=== PATIENT | male | born 1945 | race Hispanic/Latino ===

== ENCOUNTER 2017-10-09 19:44 | Inpatient (IN) | payer MEDICARE ==
--- NOTE | 2017-10-09 20:30 | C.PDOC ---
History Of Present Illness 72yo male, history of parkinson's disease, presents to ED for evaluation after he fell while walking and injured his right hip. Patient denies any loss of consciousness and states he remembers the event. He denies any other trauma or injury, offers no other medical complaints. Time Seen by Provider: 10/09/17 20:30 Chief Complaint (Nursing): Hip Pain History Per: Patient History/Exam Limitations: no limitations Onset/Duration Of Symptoms: Hrs Current Symptoms Are (Timing): Still Present Severity: Moderate Pain Scale Rating Of: 4 Recent travel outside of the [place]: No Additional History Per: Patient - Hip Description Of Injury: Fell (pushed by the wind) Currently Unable To: Bear Weight, Straighten, Bend Or Move Past Medical History Reviewed: Historical Data, Nursing Documentation, Vital Signs Vital Signs: Last Vital Signs Temp 97.4 F L 10/09/17 19:55 Pulse 97 H 10/09/17 19:55 Resp 20 10/09/17 19:55 BP 131/75 10/09/17 19:55 Pulse Ox 98 10/09/17 21:18 - Medical History PMH: No Chronic Diseases Surgical History: No Surg Hx Family History: States: No Known Family Hx - Social History Hx Alcohol Use: No Hx Substance Use: No Review Of Systems Constitutional: Negative for: Fever, Chills Cardiovascular: Negative for: Chest Pain Respiratory: Negative for: Shortness of Breath Musculoskeletal: Positive for: Other (right sided hip pain) Skin: Negative for: Rash Neurological: Negative for: Weakness, Other (loss of consciousness) Psych: Negative for: Anxiety Physical Exam - Physical Exam Appears: Non-toxic Skin: Warm, Dry Head: Atraumatic, Normacephalic Eye(s): bilateral: Normal Inspection Oral Mucosa: Moist Neck: Supple Chest: Symmetrical Cardiovascular: Rhythm Regular Respiratory: No Rales, No Rhonchi, No Wheezing Gastrointestinal/Abdominal: Bowel Sounds, Soft, No Tenderness Back: No CVA Tenderness Extremity: Tenderness (tenderness to right hip, no crepidus noted), Deformity ( right leg externally rotated), Other (bilateral cog-wheel rigidity) Extremity: Right: Limited ROM To Joint, Unable To Bear Weight Pulses: Left Dorsalis Pedis: Normal, Right Dorsalis Pedis: Normal Neurological/Psych: Oriented x3, Other (tremors noted (history of parkinsons)) Gait: Unable To Assess ED Course And Treatment - Laboratory Results Result Diagrams: 10/09/17 20:46 10/09/17 20:46 ECG: Interpreted By Me, Viewed By Me ECG Rhythm: Nonspecific Changes O2 Sat by Pulse Oximetry: 98 (RA) Pulse Ox Interpretation: Normal - Radiology CXR: Interpreted by Me, Viewed By Me CXR Interpretation: No: Infiltrates, Fracture, Pnemothorax - Other Rad hip X-Ray: Interpreted by Me, Viewed By Me Interpretation: r hip fx, impacted surgical neck Disposition Discussed With DrMilton: Keon Rodriguez Comment: accepted the pt on his service and took over the care at 10 PM Counseled Patient/Family Regarding: Studies Performed, Diagnosis - Disposition Disposition: HOSPITALIZED Disposition Time: 20:30 Condition: FAIR Forms: [facility] (Belarusian) - POA Present On Arrival: Falls Or Trauma, Poor Glycemic Control - Clinical Impression Clinical Impression: Hip pain, Fracture of right hip - Scribe Statement The provider has reviewed the documentation as recorded by the Scribe (Mary Tran) Provider Attestation: All medical record entries made by the Scribe were at my direction and personally dictated by me. I have reviewed the chart and agree that the record accurately reflects my personal performance of the history, physical exam, medical decision making, and the department course for this patient. I have also personally directed, reviewed, and agree with the discharge instructions and disposition. Decision To Admit - Pt Status Changed To: Hospital Disposition Of: Inpatient - Admit Certification Admit to Inpatient:: After my assessment, the patient will require hospitalization for at least two midnights. This is because of the severity of symptoms shown, intensity of services needed, and/or the medical risk in this patient being treated as an outpatient. - InPatient: Physician Admission Certification: I certify that this patient requires 2 or more midnights of care for the following reason:: After my assessment, the patient will require hospitalization for at least two midnights. This is because of the severity of symptoms shown, intensity of services needed, and/or the medical risk in this patient being treated as an outpatient. - . Bed Request Type: Regular Admitting Physician: Keon Rodriguez Patient Diagnosis: Hip pain, Fracture of right hip
[2017-10-09 20:53] LABS: BASO % 0.3 % (0.0-2.0); EOS # 0.1 K/uL (0.0-0.7); EOS % 2.1 % (0.0-4.0); HEMOGLOBIN 11.8 g/dL (12.0-18.0); LYMPH # 0.9 K/uL (1.0-4.3); LYMPH % 22.4 % (20.0-40.0); MEAN CELL VOLUME 98.5 fL (80.0-94.0); MEAN CORPUSCULAR HEMOGLOBIN 33.9 pg (27.0-31.0); MEAN CORPUSCULAR HGB CONC 34.4 g/dL (33.0-37.0); MEAN PLATELET VOLUME 7.7 fL (7.2-11.7); MONO # 0.2 K/uL (0.0-0.8); MONO % 5.9 % (0.0-10.0); NEUT # 2.7 K/uL (1.8-7.0); NEUT % 69.3 % (50.0-75.0); RBC 3.49 Mil/uL (4.40-5.90); RED CELL DISTRIBUTION WIDTH 12.6 % (11.5-14.5); WHITE BLOOD COUNT 3.8 K/uL (4.8-10.8)
[2017-10-09 21:03] LABS: INR 1.1
[2017-10-09 21:09] LABS: ALB/GLOB RATIO 1.2 (1.0-2.1); ALBUMIN 3.9 g/dL (3.5-5.0); ALT/SGPT 37 U/L (21-72); AST/SGOT 27 U/L (17-59); BLOOD UREA NITROGEN 20 mg/dL (9-20); CALCIUM 8.4 mg/dl (8.6-10.4); GFR AFRICAN-AMERICAN > 60; GFR NON-AFRICAN AMERICAN > 60
[2017-10-10] MEDS ORDERED: Morphine 4 MG/ML VIAL IV ONE (01:40)
[2017-10-10] MEDS ORDERED: Morphine 4 MG/ML VIAL SC PRN (04:20)
[2017-10-10] MEDS ORDERED: Morphine 4 MG/ML VIAL IVP STA (06:25)
--- NOTE | 2017-10-10 09:48 | RAD ---
PROCEDURE: CHEST RADIOGRAPH, 1 VIEW HISTORY: Shortness of breath COMPARISON: None available. FINDINGS: LUNGS: The lungs are hyperinflated and there is peribronchial thickening with chronic changes in both lungs. No focal consolidation PLEURA: No pneumothorax or pleural fluid seen. CARDIOVASCULAR: Normal. OSSEOUS STRUCTURES: No significant abnormalities. VISUALIZED UPPER ABDOMEN: Normal. OTHER FINDINGS: None. IMPRESSION: No active pulmonary disease. COPD.
[2017-10-10] MEDS: Enoxaparin 30 mg Syringe SC SCH ×2 (10:19→21:25)
--- NOTE | 2017-10-10 10:39 | RAD ---
PROCEDURE: Right Hip with Pelvis Radiographs. HISTORY: fall COMPARISON: None. FINDINGS: BONES: There is impacted fracture of the neck of the right femur without apparent dislocation of the right hip joint. Degenerative changes are symmetric in the bilateral hip joints and appear moderate in severity. Awcq-to-zraddyby degenerative sacroiliac joint changes are identified as well. The pelvic ring is intact including pubic symphysis. Sacrum is obscured by overlying bowel with the upper portion unremarkable appearing. JOINTS: As above. SOFT TISSUES: Note is made of a large left inguinal hernia containing loops of bowel extending into and enlarging the left hemiscrotum, likely colon. There is a likely right inguinal hernia also containing bowel extending into the right hemiscrotum though less prominent than at the left side. OTHER FINDINGS: None. IMPRESSION: 1. An impacted fracture of the neck of the proximal right femur is identified without dislocation. No fracture of the pelvic ring grossly evident. 2. Degenerative sacroiliac and hip joint changes are identified as described above. 3. Likely large bilateral inguinal hernias with bowel extending into the scrotum bilaterally. Further clinical correlation advised.
[2017-10-10 14:17] LABS: B-TYPE NATRIURETIC PEPTIDE 910 pg/mL (0-900)
--- NOTE | 2017-10-10 16:42 | US ---
HISTORY: swollen testicles TECHNIQUE: Realtime sonography through the scrotum with color and doppler flow. COMPARISON: None Available. FINDINGS: RIGHT TESTICLE: Measures 4.9 x 2.8 x 3.6 cm. Normal echotexture and flow. RIGHT EPIDIDYMIS: Epididymal head measures 1.2 x 0.9 x 1.3 cm. A 0.5 cm epididymal cyst seen at the level of the right epididymal head. Normal color Doppler blood flow identified. LEFT TESTICLE: Measures 4.0 x 3.2 x 3.0 cm. Normal echotexture and flow. LEFT EPIDIDYMIS: Epididymal head measures 1.5 x 11.4 x 0.8 cm. Grossly unremarkable appearance with normal flow. HYDROCELE: A mild right hydrocele is identified with a large left hydrocele. VARICOCELE: Bilateral parasellar suspected greater the right than left sides. The patient was unable to Valsalva to confirm bilateral varicoceles. OTHER FINDINGS: None. IMPRESSION: Large left and very mild right hydroceles are identified with potential bilateral varicoceles. No cystic/solid testicular masses appreciated bilaterally. No definite cystic or solid testicular mass bilaterally or evidence of torsion. Caps
--- NOTE | 2017-10-10 17:23 | VASCLAB ---
PROCEDURE: Lower Extremity Venous Duplex Exam. HISTORY: r/o DVT PRIORS: None. TECHNIQUE: Bilateral common femoral, femoral, popliteal and posterior tibial, peroneal and great saphenous veins were evaluated. Flow was assessed with color Doppler, compressibility, assessment of phasic flow and augmentation response. Report prepared by Rudy Major, BETO, RVT FINDINGS: RIGHT: 1. Common Femoral Vein: 1.1. Compressibility - Fully compressible: Thrombus - None : Flow - Phasic: Augmentation -Normal: Reflux - None. 2. Femoral Vein: 2.1. Compressibility - Fully compressible: Thrombus - None : Flow - Phasic: Augmentation -Normal: Reflux - None. 3. Popliteal Vein: 3.1. Compressibility - Fully compressible: Thrombus - None : Flow - Phasic: Augmentation -Normal: Reflux - None. 4. Posterior Tibial Vein: 4.1. Compressibility - Fully compressible: Thrombus - None: Flow - Phasic: Augmentation -Normal: Reflux - None. 5. Peroneal Vein: 5.1. Compressibility - Fully compressible: Thrombus - None: Flow - Phasic: Augmentation -Normal: Reflux - None. 6. Great Saphenous Vein: 6.1. Compressibility - Fully compressible: Thrombus - None: Flow - Phasic: Augmentation - Normal: Reflux - None. LEFT: 1. Common Femoral Vein: 1.1. Compressibility - Fully compressible: Thrombus - None: Flow - Phasic: Augmentation -Normal: Reflux - None. 2. Femoral Vein: 2.1. Compressibility - Fully compressible: Thrombus - None: Flow - Phasic: Augmentation -Normal: Reflux - None. 3. Popliteal Vein: 3.1. Compressibility - Fully compressible: Thrombus - None : Flow - Phasic: Augmentation -Normal: Reflux - None. 4. Posterior Tibial Vein: 4.1. Compressibility - Fully compressible: Thrombus - None: Flow - Phasic: Augmentation -Normal: Reflux - None. 5. Peroneal Vein: 5.1. Compressibility - Fully compressible: Thrombus - None: Flow - Phasic: Augmentation -Normal: Reflux - None. 6. Great Saphenous Vein: 6.1. Compressibility - Fully compressible: Thrombus - None: Flow - Phasic: Augmentation - Normal: Reflux - None. OTHER FINDINGS: Right: None significant. Left: None significant. IMPRESSION: Right: No evidence of deep or superficial vein thrombosis of the right lower extremity. Normal valve function noted of the right side. Left: No evidence of deep or superficial vein thrombosis of the left lower extremity. Normal valve function noted of the left side.
[2017-10-10] MEDS: Morphine 4 MG/ML VIAL IV PRN (18:30)
--- NOTE | 2017-10-10 19:36 | CP.PCM.CON ---
History of Present Illness - History of Present Illness History of Present Illness: Reason For Consultation Pre-Operative Cardiac Risk assessment History Of Present Illness 72yo male, with no cardiac history scheduled for surgery. Patient states lives alone takes care of him self. Denies any prior cardiac history or symptoms Fell and sustained hip injury. Has hx of Parkinsons disease - Medical History PMH: No Chronic Diseases Surgical History: No Surg Hx Family History: States: No Known Family Hx - Social History Hx Alcohol Use: No Hx Substance Use: No Review Of Systems Constitutional: Negative for: Fever, Chills Cardiovascular: Negative for: Chest Pain Respiratory: Negative for: Shortness of Breath Musculoskeletal: Positive for: Other (right sided hip pain) Skin: Negative for: Rash Neurological: Negative for: Weakness, Other (loss of consciousness) Psych: Negative for: Anxiety Physical Exam - Physical Exam Appears: Non-toxic Skin: Warm, Dry Head: Atraumatic, Normacephalic Eye(s): bilateral: Normal Inspection Oral Mucosa: Moist Neck: Supple Chest: Symmetrical Cardiovascular: Rhythm Regular Respiratory: No Rales, No Rhonchi, No Wheezing Gastrointestinal/Abdominal: Bowel Sounds, Soft, No Tenderness Back: No CVA Tenderness Extremity: Tenderness (tenderness to right hip, no crepidus noted), Deformity ( right leg externally rotated), Other (bilateral cog-wheel rigidity) Extremity: Right: Limited ROM To Joint, Unable To Bear Weight Pulses: Left Dorsalis Pedis: Normal, Right Dorsalis Pedis: Normal Neurological/Psych: Oriented x3, Other (tremors noted (history of parkinsons)) Gait: Unable To Assess Past Patient History - Past Social History Smoking Status: Former Smoker - NEUROLOGICAL Hx Parkinson's Disease: Yes - MUSCULOSKELETAL/RHEUMATOLOGICAL Hx Falls: Yes - PSYCHIATRIC Hx Substance Use: No - ANESTHESIA Hx Anesthesia: No Hx Anesthesia Reactions: No Meds Allergies/Adverse Reactions: Allergies Allergy/AdvReac Type Severity Reaction Status Date / Time milk Allergy DIARRHEA Verified 10/10/17 06:46 Milk Containing Products Allergy DIARRHEA Verified 10/10/17 06:46 - Medications Medications: Current Medications Carbidopa/Levodopa (Sinemet 10/100) 1 tab PO TID [facility] Last Admin: 10/10/17 18:33 Dose: 1 tab Enoxaparin Sodium (Lovenox) 30 mg SC Q12 [facility] Last Admin: 10/10/17 10:19 Dose: 30 mg Morphine Sulfate (Morphine) 2 mg IV Q4 PRN PRN Reason: Pain, moderate (4-7) Last Admin: 10/10/17 18:30 Dose: 2 mg Pneumococcal Polyvalent Vaccine (Pneumovax 23 Vaccine) 0.5 ml IM .ONCE ONE Stop: 10/12/17 10:01 Results - Vital Signs Recent Vital Signs: Last Vital Signs Temp 97.8 F 10/10/17 16:37 Pulse 58 L 10/10/17 16:37 Resp 18 10/10/17 16:37 BP 100/60 10/10/17 16:37 Pulse Ox 98 10/10/17 16:37 - Labs Result Diagrams: 10/09/17 20:46 10/09/17 20:46 Labs: Laboratory Results - last 24 hr 10/09/17 10/09/17 10/09/17 20:46 20:46 20:46 WBC 3.8 L RBC 3.49 L Hgb 11.8 L Hct 34.4 L MCV 98.5 H MCH 33.9 H MCHC 34.4 RDW 12.6 Plt Count 211 MPV 7.7 Neut % (Auto) 69.3 Lymph % (Auto) 22.4 [place] % (Auto) 5.9 Eos % (Auto) 2.1 Baso % (Auto) 0.3 Neut # (Auto) 2.7 Lymph # (Auto) 0.9 L [place] # (Auto) 0.2 Eos # (Auto) 0.1 Baso # (Auto) 0.0 PT 12.0 INR 1.1 APTT 32 Sodium 140 Potassium 4.2 Chloride 99 Carbon Dioxide 27 Anion Gap 18 BUN 20 Creatinine 0.6 L Est GFR ( Amer) > 60 Est GFR (Non-Af Amer) > 60 Random Glucose 147 H Calcium 8.4 L Total Bilirubin 0.5 AST 27 ALT 37 Alkaline Phosphatase 58 Troponin I NT-Pro-B Natriuret Pep Total Protein 7.1 Albumin 3.9 Globulin 3.2 Albumin/Globulin Ratio 1.2 Blood Type Antibody Screen 10/09/17 10/10/17 20:47 13:41 WBC RBC Hgb Hct MCV MCH MCHC RDW Plt Count MPV Neut % (Auto) Lymph % (Auto) [place] % (Auto) Eos % (Auto) Baso % (Auto) Neut # (Auto) Lymph # (Auto) [place] # (Auto) Eos # (Auto) Baso # (Auto) PT INR APTT Sodium Potassium Chloride Carbon Dioxide Anion Gap BUN Creatinine Est GFR ( Amer) Est GFR (Non-Af Amer) Random Glucose Calcium Total Bilirubin AST ALT Alkaline Phosphatase Troponin I < 0.0120 NT-Pro-B Natriuret Pep 910 H Total Protein Albumin Globulin Albumin/Globulin Ratio Blood Type O POSITIVE Antibody Screen Negative Assessment & Plan - Assessment and Plan (Free Text) Assessment: 72 Male with no hx o DM, HTN, Hyperlipidemia PR or cardiac symptoms Non smoker EKG: NSR ECHO: Normal LV EF and function Do not see any additional need for further cardiac work up Cardiac point of view this patient cleared for Hip surgery under general anaesthesia Cardiac point of view do not see any reason to with hold this needed surgery for this patient Will follow Thank you for the referral
--- NOTE | 2017-10-10 23:20 | CP.PCM.HP ---
History of Present Illness - History of Present Illness History of Present Illness: Chief Complaint : Hip Pain History Of Present Illness 72yo male, history of parkinson's disease, presents to ED for evaluation after he fell while walking and injured his right hip. Patient denies any loss of consciousness and states he remembers the event. He denies any other trauma or injury, offers no other medical complaints. Patient states lives alone takes care of him self. Denies any prior cardiac history or symptoms Fell and sustained hip injury. Past Patient History - Past Social History Smoking Status: Former Smoker - NEUROLOGICAL Hx Parkinson's Disease: Yes - MUSCULOSKELETAL/RHEUMATOLOGICAL Hx Falls: Yes - PSYCHIATRIC Hx Substance Use: No - ANESTHESIA Hx Anesthesia: No Hx Anesthesia Reactions: No Meds Allergies/Adverse Reactions: Allergies Allergy/AdvReac Type Severity Reaction Status Date / Time milk Allergy DIARRHEA Verified 10/10/17 06:46 Milk Containing Products Allergy DIARRHEA Verified 10/10/17 06:46 Results - Vital Signs Recent Vital Signs: Last Vital Signs Temp 97.8 F 10/10/17 16:37 Pulse 58 L 10/10/17 16:37 Resp 18 10/10/17 16:37 BP 100/60 10/10/17 16:37 Pulse Ox 98 10/10/17 16:37 - Labs Result Diagrams: 10/09/17 20:46 10/09/17 20:46 Labs: Laboratory Results - last 24 hr 10/10/17 13:41 Troponin I < 0.0120 NT-Pro-B Natriuret Pep 910 H Assessment & Plan (1) Fracture of right hip Assessment and Plan: scheduled for surgery. Patient states lives alone takes care of him self. cleared by cardiology ,Denies any prior cardiac history or symptoms Fell and sustained hip injury. Has hx of Parkinsons disease Status: Acute (2) Hip pain Status: Acute
[2017-10-11] MEDS: Morphine 4 MG/ML VIAL IV PRN ×4 (01:00→20:16)
--- NOTE | 2017-10-11 07:43 | CARD ---
APPROVED REPORT EXAM: Two-dimensional and M-mode echocardiogram with Doppler and color Doppler. Other Information Quality : TDSRhythm : INDICATION Pre-Op 2D DIMENSIONS IVSd1.2 (0.7-1.1cm)LVDd2.8 (3.9-5.9cm) PWd1.2 (0.7-1.1cm)LVDs2.1 (2.5-4.0cm) FS (%) 24.8 %LVEF (%)65.0 (>50%) M-Mode DIMENSIONS Left Atrium (MM)3.95 (2.5-4.0cm)Aortic Root4.38 (2.2-3.7cm) Aortic Cusp Exc.2.51 (1.5-2.0cm) Mitral Valve MV E Qwxkkifk075.4cm/sMV A Uiiwfuch20.1cm/sE/A ratio1.7 TDI E/Lateral E'0.0E/Medial E'0.0 Tricuspid Valve TR Peak Pxndbyfn777km/sTR Peak Gr.19mmHg LEFT VENTRICLE The left ventricle is normal size. There is normal left ventricular wall thickness. The left ventricular function is normal. The left ventricular ejection fraction is within the normal range. There is normal LV segmental wall motion. The left ventricular diastolic function is normal. RIGHT VENTRICLE The right ventricle is normal size. ATRIA The left atrium size is normal. The right atrium size is normal. AORTIC VALVE The aortic valve is normal in structure. MITRAL VALVE Mitral regurgitation is trace. TRICUSPID VALVE There is trace tricuspid regurgitation. <Conclusion> Normal LV systolic function. Normal chamber size. Trace MR. Trace TR.
--- NOTE | 2017-10-11 07:48 | CARD ---
APPROVED REPORT EKG Measurement Heart [id number] <Conclusion> Normal sinus rhythm Normal ECG
[2017-10-11 08:33] LABS: BASO % 0.7 % (0.0-2.0); EOS # 0.2 K/uL (0.0-0.7); EOS % 4.9 % (0.0-4.0); HEMOGLOBIN 11.2 g/dL (12.0-18.0); LYMPH # 1.2 K/uL (1.0-4.3); LYMPH % 29.1 % (20.0-40.0); MEAN CELL VOLUME 98.8 fL (80.0-94.0); MEAN CORPUSCULAR HEMOGLOBIN 34.1 pg (27.0-31.0); MEAN CORPUSCULAR HGB CONC 34.5 g/dL (33.0-37.0); MEAN PLATELET VOLUME 7.6 fL (7.2-11.7); MONO # 0.4 K/uL (0.0-0.8); MONO % 9.6 % (0.0-10.0); NEUT # 2.3 K/uL (1.8-7.0); NEUT % 55.7 % (50.0-75.0); RBC 3.28 Mil/uL (4.40-5.90); RED CELL DISTRIBUTION WIDTH 12.4 % (11.5-14.5); WHITE BLOOD COUNT 4.1 K/uL (4.8-10.8)
[2017-10-11 08:44] LABS: BLOOD UREA NITROGEN 16 mg/dL (9-20); CALCIUM 8.6 mg/dl (8.6-10.4); GFR AFRICAN-AMERICAN > 60; GFR NON-AFRICAN AMERICAN > 60
[2017-10-11] MEDS: Enoxaparin 30 mg Syringe SC SCH ×2 (09:35→21:27)
--- NOTE | 2017-10-11 23:37 | CP.PCM.PN ---
Subjective - Date & Time of Evaluation Date of Evaluation: 10/11/17 Time of Evaluation: 17:40 - Subjective Subjective: PT SEEN AND EXAMINED AT BEDSIDE Objective - Vital Signs/Intake and Output Vital Signs (last 24 hours): Temp Pulse Resp BP Pulse Ox 97.9 F 58 L 20 104/62 95 10/11/17 15:00 10/11/17 15:00 10/11/17 15:00 10/11/17 20:10 10/11/17 15:00 Intake and Output: 10/11/17 10/12/17 18:59 06:59 Intake Total 1000 Output Total 500 Balance 500 - Medications Medications: Current Medications Carbidopa/Levodopa (Sinemet 10/100) 1 tab PO TID [facility] Last Admin: 10/11/17 17:26 Dose: 1 tab Enoxaparin Sodium (Lovenox) 30 mg SC Q12 [facility] Last Admin: 10/11/17 21:27 Dose: Not Given Morphine Sulfate (Morphine) 2 mg IV Q4 PRN PRN Reason: Pain, moderate (4-7) Last Admin: 10/11/17 20:16 Dose: 2 mg Pneumococcal Polyvalent Vaccine (Pneumovax 23 Vaccine) 0.5 ml IM .ONCE ONE Stop: 10/12/17 10:01 - Labs Labs: 10/11/17 08:16 10/11/17 08:16 PT 12.0 SECONDS (9.7-12.2) 10/09/17 20:46 INR 1.1 10/09/17 20:46 APTT 32 SECONDS (21-34) 10/09/17 20:46 Assessment and Plan (1) Fracture of right hip Status: Acute (2) Hip pain Status: Acute
[2017-10-12] MEDS: Morphine 4 MG/ML VIAL IV PRN ×3 (02:25→18:04)
--- NOTE | 2017-10-12 09:39 | CP.PCM.CON ---
History of Present Illness - History of Present Illness History of Present Illness: ID: 72 yo male CC: pain, deformity R lower extremit/inability to ambulate HPI: 72 yo male with hx of parkinsons disease, presents after fall on 10/09 to [facility] ER . Ortho consulted 10/11- pt presents with Pt unable to ambulate pt admitted; ortho consulted pain and restricted ROM R lower extremity 10/11 I saw pt 10/11 at 1815. consult transcribed now Past Patient History - Past Social History Smoking Status: Former Smoker - NEUROLOGICAL Hx Parkinson's Disease: Yes - MUSCULOSKELETAL/RHEUMATOLOGICAL Hx Falls: Yes - PSYCHIATRIC Hx Substance Use: No - ANESTHESIA Hx Anesthesia: No Hx Anesthesia Reactions: No Meds Allergies/Adverse Reactions: Allergies Allergy/AdvReac Type Severity Reaction Status Date / Time milk Allergy DIARRHEA Verified 10/10/17 06:46 Milk Containing Products Allergy DIARRHEA Verified 10/10/17 06:46 - Medications Medications: Current Medications Carbidopa/Levodopa (Sinemet 10/100) 1 tab PO TID [facility] Last Admin: 10/11/17 17:26 Dose: 1 tab Enoxaparin Sodium (Lovenox) 30 mg SC Q12 [facility] Last Admin: 10/11/17 21:27 Dose: Not Given Morphine Sulfate (Morphine) 2 mg IV Q4 PRN PRN Reason: Pain, moderate (4-7) Last Admin: 10/12/17 02:25 Dose: 2 mg Pneumococcal Polyvalent Vaccine (Pneumovax 23 Vaccine) 0.5 ml IM .ONCE ONE Stop: 10/12/17 10:01 Physical Exam - Additional Findings Additional findings: Systemic exam reveals cogwheel rigifity both upper extremities, noted in Parkinsons disease constitutional exam- pt affable and in pain at time of encountger Musculoskekeltal stance/gait0- defrred pt with shortening and external rotation R lower extremity N/V intact no trochanteric eccyhmosis + tenderness to heel percussion Results - Vital Signs Recent Vital Signs: Last Vital Signs Temp 97.3 F L 10/12/17 07:50 Pulse 59 L 10/12/17 07:50 Resp 18 10/12/17 07:50 BP 109/71 10/12/17 07:50 Pulse Ox 98 10/12/17 07:50 - Labs Result Diagrams: 10/11/17 08:16 10/11/17 08:16 - Impressions Impression: Xray revals displaced Garden's 4 subcapital fx R hip, with preexisting O/A R hip Assessment & Plan - Assessment and Plan (Free Text) Assessment: A- displaced Garden's 4 subcapital fx R hip primary O/A R hip Parkinsons disease P- to OR for Primary Total Hip Replacement after medical clearance pros, cons riska nd befits of R THR discussed at length with pt possibility of mechanical fialure/infection/thromboembolic disease/possibility of secondary or tertiary surgery discussed NO PROMISE/guarantees
[2017-10-12] MEDS ORDERED: Pneumococcal 23-Valent Vaccine IM ONE (10:00)
[2017-10-12] MEDS: Enoxaparin 30 mg Syringe SC SCH ×2 (10:15→21:28)
--- NOTE | 2017-10-12 10:18 | CP.PCM.PN ---
Subjective - Date & Time of Evaluation Date of Evaluation: 10/11/17 Time of Evaluation: 18:30 - Subjective Subjective: Pre Operative Cardiac Risk Assessment Patient without chest pain or any cardiac symptoms Review Of Systems Constitutional: Negative for: Fever, Chills Cardiovascular: Negative for: Chest Pain Respiratory: Negative for: Shortness of Breath Musculoskeletal: Positive for: Other (right sided hip pain) Skin: Negative for: Rash Neurological: Negative for: Weakness, Other (loss of consciousness) Psych: Negative for: Anxiety Physical Exam - Physical Exam Appears: Non-toxic Skin: Warm, Dry Head: Atraumatic, Normacephalic Eye(s): bilateral: Normal Inspection Oral Mucosa: Moist Neck: Supple Chest: Symmetrical Cardiovascular: Rhythm Regular Respiratory: No Rales, No Rhonchi, No Wheezing Gastrointestinal/Abdominal: Bowel Sounds, Soft, No Tenderness Back: No CVA Tenderness Extremity: Tenderness (tenderness to right hip, no crepidus noted), Deformity ( right leg externally rotated), Other (bilateral cog-wheel rigidity) Extremity: Right: Limited ROM To Joint, Unable To Bear Weight Pulses: Left Dorsalis Pedis: Normal, Right Dorsalis Pedis: Normal Neurological/Psych: Oriented x3, Other (tremors noted (history of parkinsons)) Gait: Unable To Assess Objective - Vital Signs/Intake and Output Vital Signs (last 24 hours): Temp Pulse Resp BP Pulse Ox 97.3 F L 59 L 18 109/71 98 10/12/17 07:50 10/12/17 07:50 10/12/17 07:50 10/12/17 07:50 10/12/17 07:50 Intake and Output: 10/12/17 10/12/17 06:59 18:59 Output Total 650 Balance -650 - Medications Medications: Current Medications Carbidopa/Levodopa (Sinemet 10/100) 1 tab PO TID ON LICENSE OF [facility] Last Admin: 10/11/17 17:26 Dose: 1 tab Enoxaparin Sodium (Lovenox) 30 mg SC Q12 ON LICENSE OF [facility] Last Admin: 10/11/17 21:27 Dose: Not Given Morphine Sulfate (Morphine) 2 mg IV Q4 PRN PRN Reason: Pain, moderate (4-7) Last Admin: 10/12/17 02:25 Dose: 2 mg - Labs Labs: 10/11/17 08:16 10/11/17 08:16 PT 12.0 SECONDS (9.7-12.2) 10/09/17 20:46 INR 1.1 10/09/17 20:46 APTT 32 SECONDS (21-34) 10/09/17 20:46 Assessment and Plan - Assessment and Plan (Free Text) Assessment: ECHO: Normal EF EKG: NSR No cardiac symptoms or prior cardiac events Cardiac Risk for Hip surgery under General anaesthesia: Moderate Cleared for surgery with moderate cardiac risk No need to withhold the hip surgery cardiac point of view if the surgery is clinically indicated and in the best interest of the patient well being Thank you
--- NOTE | 2017-10-12 23:56 | CP.PCM.PN ---
Subjective - Date & Time of Evaluation Date of Evaluation: 10/12/17 Time of Evaluation: 17:00 - Subjective Subjective: PT IS SEEN AND EXAMINED, AFEBRILE Objective - Vital Signs/Intake and Output Vital Signs (last 24 hours): Temp Pulse Resp BP Pulse Ox 98.2 F 54 L 20 99/65 L 98 10/12/17 15:20 10/12/17 15:20 10/12/17 15:20 10/12/17 15:20 10/12/17 15:20 Intake and Output: 10/12/17 10/13/17 18:59 06:59 Intake Total 720 Output Total 800 Balance -80 - Medications Medications: Current Medications Carbidopa/Levodopa (Sinemet 10/100) 1 tab PO TID [facility] Last Admin: 10/12/17 18:05 Dose: 1 tab Enoxaparin Sodium (Lovenox) 30 mg SC Q12 [facility] Last Admin: 10/12/17 21:28 Dose: Not Given Morphine Sulfate (Morphine) 2 mg IV Q4 PRN PRN Reason: Pain, moderate (4-7) Last Admin: 10/12/17 18:04 Dose: 2 mg - Labs Labs: 10/11/17 08:16 10/11/17 08:16 PT 12.0 SECONDS (9.7-12.2) 10/09/17 20:46 INR 1.1 10/09/17 20:46 APTT 32 SECONDS (21-34) 10/09/17 20:46 Assessment and Plan (1) Fracture of right hip Status: Acute (2) Hip pain Status: Acute
[2017-10-13] MEDS: Morphine 4 MG/ML VIAL IV PRN ×3 (03:59→17:54)
[2017-10-13 08:48] LABS: BASO % 0.3 % (0.0-2.0); EOS # 0.3 K/uL (0.0-0.7); EOS % 7.1 % (0.0-4.0); HEMOGLOBIN 11.5 g/dL (12.0-18.0); LYMPH % 23.7 % (20.0-40.0); MEAN CELL VOLUME 99.2 fL (80.0-94.0); MEAN CORPUSCULAR HEMOGLOBIN 34.3 pg (27.0-31.0); MEAN CORPUSCULAR HGB CONC 34.6 g/dL (33.0-37.0); MEAN PLATELET VOLUME 7.8 fL (7.2-11.7); MONO # 0.5 K/uL (0.0-0.8); MONO % 11.5 % (0.0-10.0); NEUT # 2.5 K/uL (1.8-7.0); NEUT % 57.4 % (50.0-75.0); NRBC % 0.1 % (0.0-2.0); RBC 3.34 Mil/uL (4.40-5.90); RED CELL DISTRIBUTION WIDTH 12.6 % (11.5-14.5); WHITE BLOOD COUNT 4.3 K/uL (4.8-10.8)
[2017-10-13 09:02] LABS: ALBUMIN 3.3 g/dL (3.5-5.0); ALT/SGPT 19 U/L (21-72); AST/SGOT 19 U/L (17-59); BLOOD UREA NITROGEN 18 mg/dL (9-20); CALCIUM 8.8 mg/dl (8.6-10.4); GFR AFRICAN-AMERICAN > 60; GFR NON-AFRICAN AMERICAN > 60
[2017-10-13] MEDS: Enoxaparin 30 mg Syringe SC SCH ×2 (10:17→22:17)
--- NOTE | 2017-10-13 23:09 | CP.PCM.PN ---
Subjective - Date & Time of Evaluation Date of Evaluation: 10/13/17 Time of Evaluation: 16:20 - Subjective Subjective: Patient seen and evaluated Denies chest pain and dyspnea Patient awaiting Hip surgery Objective - Vital Signs/Intake and Output Vital Signs (last 24 hours): Temp Pulse Resp BP Pulse Ox 98.1 F 58 L 20 101/61 99 10/13/17 15:30 10/13/17 15:30 10/13/17 15:30 10/13/17 15:30 10/13/17 15:30 Intake and Output: 10/13/17 10/14/17 18:59 06:59 Intake Total 600 Output Total 450 Balance 150 - Medications Medications: Current Medications Carbidopa/Levodopa (Sinemet) 1 tab PO TID [facility] Enoxaparin Sodium (Lovenox) 30 mg SC Q12 [facility] Last Admin: 10/13/17 22:17 Dose: 30 mg Morphine Sulfate (Morphine) 2 mg IV Q4 PRN PRN Reason: Pain, moderate (4-7) Last Admin: 10/13/17 17:54 Dose: 2 mg - Labs Labs: 10/13/17 08:40 10/13/17 08:40 PT 12.0 SECONDS (9.7-12.2) 10/09/17 20:46 INR 1.1 10/09/17 20:46 APTT 32 SECONDS (21-34) 10/09/17 20:46
--- NOTE | 2017-10-13 23:09 | CP.PCM.PN ---
Subjective - Date & Time of Evaluation Date of Evaluation: 10/12/17 Time of Evaluation: 15:10 - Subjective Subjective: Patient seen and evaluated Denies chest pain and dyspnea Patient awaiting Hip surgery Objective - Vital Signs/Intake and Output Vital Signs (last 24 hours): Temp Pulse Resp BP Pulse Ox 98.1 F 58 L 20 101/61 99 10/13/17 15:30 10/13/17 15:30 10/13/17 15:30 10/13/17 15:30 10/13/17 15:30 Intake and Output: 10/13/17 10/14/17 18:59 06:59 Intake Total 600 Output Total 450 Balance 150 - Medications Medications: Current Medications Carbidopa/Levodopa (Sinemet) 1 tab PO TID [facility] Enoxaparin Sodium (Lovenox) 30 mg SC Q12 [facility] Last Admin: 10/13/17 22:17 Dose: 30 mg Morphine Sulfate (Morphine) 2 mg IV Q4 PRN PRN Reason: Pain, moderate (4-7) Last Admin: 10/13/17 17:54 Dose: 2 mg - Labs Labs: 10/13/17 08:40 10/13/17 08:40 PT 12.0 SECONDS (9.7-12.2) 10/09/17 20:46 INR 1.1 10/09/17 20:46 APTT 32 SECONDS (21-34) 10/09/17 20:46
--- NOTE | 2017-10-13 23:42 | CP.PCM.PN ---
Subjective - Date & Time of Evaluation Date of Evaluation: 10/13/17 Time of Evaluation: 17:00 - Subjective Subjective: patient seen and examined Lying comfortably in no distress No shortness of breath Afebrile Objective - Vital Signs/Intake and Output Vital Signs (last 24 hours): Temp Pulse Resp BP Pulse Ox 98.1 F 58 L 20 101/61 99 10/13/17 15:30 10/13/17 15:30 10/13/17 15:30 10/13/17 15:30 10/13/17 15:30 Intake and Output: 10/13/17 10/14/17 18:59 06:59 Intake Total 600 Output Total 450 Balance 150 - Medications Medications: Current Medications Carbidopa/Levodopa (Sinemet) 1 tab PO TID [facility] Enoxaparin Sodium (Lovenox) 30 mg SC Q12 [facility] Last Admin: 10/13/17 22:17 Dose: 30 mg Morphine Sulfate (Morphine) 2 mg IV Q4 PRN PRN Reason: Pain, moderate (4-7) Last Admin: 10/13/17 17:54 Dose: 2 mg - Labs Labs: 10/13/17 08:40 10/13/17 08:40 PT 12.0 SECONDS (9.7-12.2) 10/09/17 20:46 INR 1.1 10/09/17 20:46 APTT 32 SECONDS (21-34) 10/09/17 20:46 Assessment and Plan (1) Fracture of right hip Status: Acute (2) Hip pain Status: Acute
[2017-10-14] MEDS: Morphine 4 MG/ML VIAL IV PRN ×2 (03:07→21:14)
[2017-10-14] MEDS ORDERED: Tranexamic Acid 1,000 MG in Sodium Chloride 0.9% 50 ML IV STA (09:29)
[2017-10-14] MEDS ORDERED: Bacitracin 150,000 UNIT in Sodium Chloride 0.9% Irrig 3,000 ML IR SCH (09:30)
[2017-10-14] MEDS ORDERED: ceFAZolin 2 GM in Sodium Chloride 0.9% 100 ML IVPB ONE (09:30)
[2017-10-14] MEDS ORDERED: Morphine 1 mg/ml preservative-free Inj(Duramorph) ONE (09:37)
[2017-10-14 09:38] LABS: MEAN CELL VOLUME 98.7 fL (80.0-94.0); MEAN CORPUSCULAR HEMOGLOBIN 33.9 pg (27.0-31.0); MEAN CORPUSCULAR HGB CONC 34.3 g/dL (33.0-37.0); MEAN PLATELET VOLUME 7.6 fL (7.2-11.7); RBC 3.55 Mil/uL (4.40-5.90); RED CELL DISTRIBUTION WIDTH 12.6 % (11.5-14.5); WHITE BLOOD COUNT 3.9 K/uL (4.8-10.8)
[2017-10-14] MEDS ORDERED: Propofol 10 mg/ml Inj (20 ML) ONE (09:41)
[2017-10-14 09:43] LABS: SQUAMOUS EPITHIAL < 1 /hpf (0-5); URINE BILIRUBIN NEGATIVE (NEGATIVE); URINE BLOOD NEGATIVE (NEGATIVE); URINE CLARITY Clear (Clear); URINE COLOR Yellow (YELLOW); URINE GLUCOSE (UA) NORMAL (Normal); URINE LEUKOCYTE ESTERASE NEG Leu/uL (Negative); URINE PROTEIN NEGATIVE (NEGATIVE)
[2017-10-14 10:26] LABS: BLOOD UREA NITROGEN 16 mg/dL (9-20); CALCIUM 8.9 mg/dl (8.6-10.4); GFR AFRICAN-AMERICAN > 60; GFR NON-AFRICAN AMERICAN > 60
[2017-10-14] MEDS ORDERED: Absorbable Gelatin Sponge Size 100 ONE (12:42)
[2017-10-14] MEDS ORDERED: Thrombin Topical 20,000 Intl Units Spray Kit TOP ONE (12:43)
[2017-10-14 12:52] LABS: HEMOGLOBIN 11.8 g/dL (12.0-18.0); MEAN CELL VOLUME 96.6 fL (80.0-94.0); MEAN CORPUSCULAR HEMOGLOBIN 33.4 pg (27.0-31.0); MEAN CORPUSCULAR HGB CONC 34.6 g/dL (33.0-37.0); MEAN PLATELET VOLUME 7.5 fL (7.2-11.7); RBC 3.54 Mil/uL (4.40-5.90); RED CELL DISTRIBUTION WIDTH 13.5 % (11.5-14.5); WHITE BLOOD COUNT 5.5 K/uL (4.8-10.8)
[2017-10-14] MEDS ORDERED: Neostigmine Methylsulfate 3mg/3ml Syringe IV ONE (13:34)
[2017-10-14] MEDS ORDERED: Bacitracin Ointment 30 GM TUBE ONE (13:38)
--- NOTE | 2017-10-14 13:51 | PCM.SURG1 ---
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 preexisting O/A R hip Operative Findings: as above. synopvitis Post-Operative Diagnosis: as above Operation Performed: R THR- ant approach. femoral neck osteotomy. arthrotomy synovectomy. autograft/allograft bone graft. computer navigation Specimen/Specimens Removed: bone /cartilage/synovium Estimated Blood Loss: EBL {In ML}: 365 Blood Products Given: N/A Drains Used: No Drains Post-Op Condition: Fair Date of Surgery/Procedure: 10/14/17 Time of Surgery/Procedure: 11:15 (time in room/anaesthesia indcution time)
[2017-10-14] MEDS ORDERED: DiphenhydrAMINE 50 mg/ml Inj IVP PRN (14:13)
[2017-10-14] MEDS ORDERED: Oxycodone/Acetaminophen 5/325 mg Tab PO PRN (14:13)
[2017-10-14] MEDS ORDERED: HYDROmorphone 1 mg/ml ISec IVP PRN (14:15)
--- NOTE | 2017-10-14 14:16 | RAD ---
PROCEDURE: Intraoperative Fluoroscopy. HISTORY: Right hip fracture FINDINGS: Fluoroscopic assistance was provided for right hip fracture repair. Please refer to the operative report from RACHELE Ramirez.
--- NOTE | 2017-10-14 15:12 | RAD ---
PROCEDURE: Right Hip Radiographs. HISTORY: pt in PACU s/p THR COMPARISON: None. FINDINGS: BONES: There is no acute displaced fracture or bone destruction. Bone alignment is normal. JOINTS: Status post total right hip arthroplasty. SOFT TISSUES: There is extensive soft tissue emphysema in the periarticular soft tissues in keeping with recent postoperative changes. Lateral skin lurdes. OTHER FINDINGS: None. IMPRESSION: Status post total right hip arthroplasty, expected postoperative changes in the periarticular soft tissues. No acute complications.
[2017-10-14] MEDS: ceFAZolin IV 2 gm in Dextrose 2 GM/50 ML BAG IVPB SCH (17:27)
[2017-10-14] MEDS: Sodium Chloride 0.9% 1,000 ML IV SCH (17:27)
--- NOTE | 2017-10-14 21:32 | CP.PCM.PN ---
Subjective - Date & Time of Evaluation Date of Evaluation: 10/14/17 Time of Evaluation: 17:00 - Subjective Subjective: patient seen and examined, on post op care Objective - Vital Signs/Intake and Output Vital Signs (last 24 hours): Temp Pulse Resp BP Pulse Ox 98 F 61 14 101/60 99 10/14/17 15:30 10/14/17 15:30 10/14/17 15:30 10/14/17 15:30 10/14/17 15:30 Intake and Output: 10/14/17 10/15/17 18:59 06:59 Intake Total 3650 Balance 3650 - Medications Medications: Current Medications Acetaminophen (Tylenol 325mg Tab) 650 mg PO Q4 PRN PRN Reason: Fever 101 degrees fahrenheit Carbidopa/Levodopa (Sinemet) 1 tab PO TID [facility] Last Admin: 10/14/17 17:27 Dose: 1 tab Diphenhydramine HCl (Benadryl) 50 mg IVP Q6H PRN PRN Reason: Itching / Pruritus Docusate Sodium (Colace) 100 mg PO BID [facility] Last Admin: 10/14/17 17:27 Dose: 100 mg Enoxaparin Sodium (Lovenox) 40 mg SC Q24H [facility] Hydromorphone HCl (Dilaudid) 0.5 mg IVP Q4H PRN PRN Reason: Pain, severe (8-10) Cefazolin Sodium/Dextrose (Ancef Iv 2 Gm Duplex) 2 gm in 50 mls @ 100 mls/hr IVPB Q8H [facility] PRN Reason: Protocol Stop: 10/15/17 01:29 Last Admin: 10/14/17 17:27 Dose: 100 mls/hr Sodium Chloride (Sodium Chloride 0.9%) 1,000 mls @ 80 mls/hr IV .[id number] [facility] Stop: 10/15/17 15:14 Last Admin: 10/14/17 17:27 Dose: 80 mls/hr Metoclopramide HCl (Reglan) 10 mg IVP Q6H PRN PRN Reason: Nausea/Vomiting Morphine Sulfate (Morphine) 2 mg IV Q4 PRN PRN Reason: Pain, moderate (4-7) Last Admin: 10/14/17 21:14 Dose: 2 mg Ondansetron HCl (Zofran Inj) 4 mg IVP Q6H PRN PRN Reason: Nausea/Vomiting Oxycodone/Acetaminophen (Percocet 5/325 Mg Tab) 1 tab PO Q4H PRN PRN Reason: PCEA Breakthrough Pain Stop: 10/17/17 14:14 - Labs Labs: 10/14/17 12:44 10/14/17 09:26 PT 12.0 SECONDS (9.7-12.2) 10/09/17 20:46 INR 1.1 10/09/17 20:46 APTT 32 SECONDS (21-34) 10/09/17 20:46 Assessment and Plan (1) Fracture of right hip Status: Acute (2) Hip pain Status: Acute
[2017-10-14] MEDS ORDERED: HYDROmorphone 0.5 mg/0.5 ml ISec IVP PRN (23:30)
--- NOTE | 2017-10-14 23:37 | CP.PCM.PN ---
Subjective - Date & Time of Evaluation Date of Evaluation: 10/14/17 Time of Evaluation: 19:20 - Subjective Subjective: Patient s/p surgery No cardiac events Comfortable Objective - Vital Signs/Intake and Output Vital Signs (last 24 hours): Temp Pulse Resp BP Pulse Ox 98 F 61 14 101/60 99 10/14/17 15:30 10/14/17 15:30 10/14/17 15:30 10/14/17 15:30 10/14/17 15:30 Intake and Output: 10/14/17 10/15/17 18:59 06:59 Intake Total 3650 Output Total 0 Balance 3650 0 - Medications Medications: Current Medications Acetaminophen (Tylenol 325mg Tab) 650 mg PO Q4 PRN PRN Reason: Fever 101 degrees fahrenheit Carbidopa/Levodopa (Sinemet) 1 tab PO TID [facility] Last Admin: 10/14/17 17:27 Dose: 1 tab Diphenhydramine HCl (Benadryl) 50 mg IVP Q6H PRN PRN Reason: Itching / Pruritus Docusate Sodium (Colace) 100 mg PO BID [facility] Last Admin: 10/14/17 17:27 Dose: 100 mg Enoxaparin Sodium (Lovenox) 40 mg SC Q24H [facility] Hydromorphone HCl (Dilaudid) 0.5 mg IVP Q4H PRN PRN Reason: Pain, severe (8-10) Cefazolin Sodium/Dextrose (Ancef Iv 2 Gm Duplex) 2 gm in 50 mls @ 100 mls/hr IVPB Q8H [facility] PRN Reason: Protocol Stop: 10/15/17 01:29 Last Admin: 10/14/17 17:27 Dose: 100 mls/hr Sodium Chloride (Sodium Chloride 0.9%) 1,000 mls @ 80 mls/hr IV .[id number] [facility] Stop: 10/15/17 15:14 Last Admin: 10/14/17 17:27 Dose: 80 mls/hr Metoclopramide HCl (Reglan) 10 mg IVP Q6H PRN PRN Reason: Nausea/Vomiting Morphine Sulfate (Morphine) 2 mg IV Q4 PRN PRN Reason: Pain, moderate (4-7) Last Admin: 10/14/17 21:14 Dose: 2 mg Ondansetron HCl (Zofran Inj) 4 mg IVP Q6H PRN PRN Reason: Nausea/Vomiting Oxycodone/Acetaminophen (Percocet 5/325 Mg Tab) 1 tab PO Q4H PRN PRN Reason: PCEA Breakthrough Pain Stop: 10/17/17 14:14 - Labs Labs: 10/14/17 12:44 10/14/17 09:26 PT 12.0 SECONDS (9.7-12.2) 10/09/17 20:46 INR 1.1 10/09/17 20:46 APTT 32 SECONDS (21-34) 10/09/17 20:46
[2017-10-15] MEDS: ceFAZolin IV 2 gm in Dextrose 2 GM/50 ML BAG IVPB SCH (00:28)
[2017-10-15 01:32] VITALS: RESP 20
[2017-10-15] MEDS: Morphine 4 MG/ML VIAL IV PRN ×3 (03:07→14:08)
[2017-10-15] MEDS: Sodium Chloride 0.9% 1,000 ML IV SCH (03:09)
[2017-10-15 06:37] LABS: HEMOGLOBIN 10.9 g/dL (12.0-18.0); MEAN CELL VOLUME 93.7 fL (80.0-94.0); MEAN CORPUSCULAR HEMOGLOBIN 33.9 pg (27.0-31.0); MEAN CORPUSCULAR HGB CONC 36.2 g/dL (33.0-37.0); MEAN PLATELET VOLUME 7.5 fL (7.2-11.7); RBC 3.22 Mil/uL (4.40-5.90); RED CELL DISTRIBUTION WIDTH 14.1 % (11.5-14.5); WHITE BLOOD COUNT 5.9 K/uL (4.8-10.8)
[2017-10-15 06:48] LABS: BLOOD UREA NITROGEN 21 mg/dL (9-20); GFR AFRICAN-AMERICAN > 60; GFR NON-AFRICAN AMERICAN > 60
[2017-10-15] MEDS ORDERED: Enoxaparin 40 mg Syringe SC SCH (13:00)
--- NOTE | 2017-10-15 14:13 | CP.PCM.PN ---
Subjective - Date & Time of Evaluation Date of Evaluation: 10/15/17 Time of Evaluation: 14:10 - Subjective Subjective: Ortho f/u Dr. Metcalf Patient states pain is well controlled with morphine. Says he did well in PT today, has 30 steps into home. Denies CP/SOB/dizziness/numbess/tingling Objective - Vital Signs/Intake and Output Vital Signs (last 24 hours): Temp Pulse Resp BP Pulse Ox 99.2 F 85 20 95/53 L 98 10/15/17 07:20 10/15/17 07:20 10/15/17 07:20 10/15/17 07:20 10/15/17 07:20 Intake and Output: 10/15/17 10/15/17 06:59 18:59 Intake Total 200 Output Total 1000 Balance -800 - Medications Medications: Current Medications Acetaminophen (Tylenol 325mg Tab) 650 mg PO Q4 PRN PRN Reason: Fever 101 degrees fahrenheit Carbidopa/Levodopa (Sinemet) 1 tab PO TID [facility] Last Admin: 10/15/17 14:02 Dose: 1 tab Diphenhydramine HCl (Benadryl) 50 mg IVP Q6H PRN PRN Reason: Itching / Pruritus Docusate Sodium (Colace) 100 mg PO BID [facility] Last Admin: 10/15/17 09:45 Dose: 100 mg Enoxaparin Sodium (Lovenox) 40 mg SC Q24H [facility] Last Admin: 10/15/17 14:02 Dose: 40 mg Hydromorphone HCl (Dilaudid) 0.5 mg IVP Q4H PRN PRN Reason: Pain, severe (8-10) Sodium Chloride (Sodium Chloride 0.9%) 1,000 mls @ 80 mls/hr IV .[id number] [facility] Stop: 10/15/17 15:14 Last Admin: 10/15/17 03:09 Dose: 80 mls/hr Metoclopramide HCl (Reglan) 10 mg IVP Q6H PRN PRN Reason: Nausea/Vomiting Morphine Sulfate (Morphine) 2 mg IV Q4 PRN PRN Reason: Pain, moderate (4-7) Last Admin: 10/15/17 14:08 Dose: 2 mg Ondansetron HCl (Zofran Inj) 4 mg IVP Q6H PRN PRN Reason: Nausea/Vomiting Oxycodone/Acetaminophen (Percocet 5/325 Mg Tab) 1 tab PO Q4H PRN PRN Reason: PCEA Breakthrough Pain Stop: 10/17/17 14:14 - Labs Labs: 10/15/17 06:26 10/15/17 06:26 PT 12.0 SECONDS (9.7-12.2) 10/09/17 20:46 INR 1.1 10/09/17 20:46 APTT 32 SECONDS (21-34) 10/09/17 20:46 - Extremities Exam Additional comments: Right hip: thigh soft, minimal swelling. No erythema, incision intact, no erythema, +ROM ankle/toes, senation itnact, +DP/PT pulses calves soft NT neg homans Assessment and Plan (1) Displaced fracture of right femoral neck Assessment & Plan: POD#1 s/p right total hip replacement d/c planning to [facility] stable for d/c to rehab f/u Dr. Metcalf in office in 2 weeks call for appointment continue WBAT RLE cont VTE proph, PT/OT d/w Dr. Metcalf, agrees with above Status: Acute
--- NOTE | 2017-10-15 15:38 | CP.PCM.PN ---
<Danisha Lentz S - Last Filed: 10/15/17 17:27> Subjective - Date & Time of Evaluation Date of Evaluation: 10/15/17 Time of Evaluation: 11:35 - Subjective Subjective: Patient seen today, denies any chest pain, sob, abdominal pain, N/V/D , numbness / tinglings to theRLE POD#1 s/p right total hip replacement POD#1 seen by Ortho today, cleared from ortho standpoint for discharge to [facility] today and f/u with Dr. Huerta office in 2 weeks Objective - Vital Signs/Intake and Output Vital Signs (last 24 hours): Temp Pulse Resp BP Pulse Ox 99.2 F 85 20 95/53 L 98 10/15/17 07:20 10/15/17 07:20 10/15/17 07:20 10/15/17 07:20 10/15/17 07:20 Intake and Output: 10/15/17 10/15/17 06:59 18:59 Intake Total 200 Output Total 1000 Balance -800 - Medications Medications: Current Medications Acetaminophen (Tylenol 325mg Tab) 650 mg PO Q4 PRN PRN Reason: Fever 101 degrees fahrenheit Carbidopa/Levodopa (Sinemet) 1 tab PO TID [facility] Last Admin: 10/15/17 14:02 Dose: 1 tab Diphenhydramine HCl (Benadryl) 50 mg IVP Q6H PRN PRN Reason: Itching / Pruritus Docusate Sodium (Colace) 100 mg PO BID [facility] Last Admin: 10/15/17 09:45 Dose: 100 mg Enoxaparin Sodium (Lovenox) 40 mg SC Q24H [facility] Last Admin: 10/15/17 14:02 Dose: 40 mg Hydromorphone HCl (Dilaudid) 0.5 mg IVP Q4H PRN PRN Reason: Pain, severe (8-10) Metoclopramide HCl (Reglan) 10 mg IVP Q6H PRN PRN Reason: Nausea/Vomiting Morphine Sulfate (Morphine) 2 mg IV Q4 PRN PRN Reason: Pain, moderate (4-7) Last Admin: 10/15/17 14:08 Dose: 2 mg Ondansetron HCl (Zofran Inj) 4 mg IVP Q6H PRN PRN Reason: Nausea/Vomiting Oxycodone/Acetaminophen (Percocet 5/325 Mg Tab) 1 tab PO Q4H PRN PRN Reason: PCEA Breakthrough Pain Stop: 10/17/17 14:14 - Labs Labs: 10/15/17 06:26 10/15/17 06:26 PT 12.0 SECONDS (9.7-12.2) 10/09/17 20:46 INR 1.1 10/09/17 20:46 APTT 32 SECONDS (21-34) 10/09/17 20:46 Assessment and Plan - Assessment and Plan (Free Text) Assessment: A/P 72yo male, history of parkinson's disease, admitted with R hip fx s/p fall s/p right total hip replacement POD#1 hgb - stable seen by orthopedics today ,ortho stable for d/c to rehab ,f/u Dr. Metcalf in office in 2 weeks call for appointment, continue WBAT RLE Patient accepted at [facility] for rehab D/w Dr. Rodriguez, stable for discharge to [facility] today and Dr. Rodriguez will follow the patient at [facility] <Keon Rodriguez - Last Filed: 10/15/17 22:57> Subjective - Subjective Subjective: cleared for discharge from medical standpoint to home today and f/u withme in office in 1 week Objective - Vital Signs/Intake and Output Vital Signs (last 24 hours): Temp Pulse Resp BP Pulse Ox 97.8 F 68 20 98/58 L 100 10/15/17 15:00 10/15/17 15:00 10/15/17 15:00 10/15/17 15:00 10/15/17 15:00 - Labs Labs: 10/15/17 06:26 10/15/17 06:26 PT 12.0 SECONDS (9.7-12.2) 10/09/17 20:46 INR 1.1 10/09/17 20:46 APTT 32 SECONDS (21-34) 10/09/17 20:46 Assessment and Plan (1) Fracture of right hip Status: Acute (2) Hip pain Status: Acute
[2017-10-15 15:43] VITALS: BP 98/58; PULSE 68; TEMP 97.8; O2SAT 100
--- NOTE | 2017-10-15 22:57 | CP.PCM.DIS ---
Provider - Provider Date of Admission: 10/09/17 22:05 Attending physician: Keon Rodriguez MD Time Spent in preparation of Discharge (in minutes): 25 Diagnosis - Discharge Diagnosis (1) Fracture of right hip Status: Acute (2) Hip pain Status: Acute Hospital Course - Lab Results Lab Results: Most Recent Lab Values WBC 5.9 K/uL (4.8-10.8) 10/15/17 06:26 RBC 3.22 Mil/uL (4.40-5.90) L 10/15/17 06:26 Hgb 10.9 g/dL (12.0-18.0) L 10/15/17 06:26 Hct 30.1 % (35.0-51.0) L 10/15/17 06:26 MCV 93.7 fL (80.0-94.0) D 10/15/17 06:26 MCH 33.9 pg (27.0-31.0) H 10/15/17 06:26 MCHC 36.2 g/dL (33.0-37.0) 10/15/17 06:26 RDW 14.1 % (11.5-14.5) 10/15/17 06:26 Plt Count 187 K/uL (130-400) 10/15/17 06:26 MPV 7.5 fL (7.2-11.7) 10/15/17 06:26 Neut % (Auto) 57.4 % (50.0-75.0) 10/13/17 08:40 Lymph % (Auto) 23.7 % (20.0-40.0) 10/13/17 08:40 [place] % (Auto) 11.5 % (0.0-10.0) H 10/13/17 08:40 Eos % (Auto) 7.1 % (0.0-4.0) H 10/13/17 08:40 Baso % (Auto) 0.3 % (0.0-2.0) 10/13/17 08:40 Neut # (Auto) 2.5 K/uL (1.8-7.0) 10/13/17 08:40 Lymph # (Auto) 1.0 K/uL (1.0-4.3) 10/13/17 08:40 [place] # (Auto) 0.5 K/uL (0.0-0.8) 10/13/17 08:40 Eos # (Auto) 0.3 K/uL (0.0-0.7) 10/13/17 08:40 Baso # (Auto) 0.0 K/uL (0.0-0.2) 10/13/17 08:40 PT 12.0 SECONDS (9.7-12.2) 10/09/17 20:46 INR 1.1 10/09/17 20:46 APTT 32 SECONDS (21-34) 10/09/17 20:46 Sodium 136 mmol/L (132-148) 10/15/17 06:26 Potassium 4.5 mmol/L (3.6-5.2) 10/15/17 06:26 Chloride 101 mmol/L (98-107) 10/15/17 06:26 Carbon Dioxide 26 mmol/L (22-30) 10/15/17 06:26 Anion Gap 13 (10-20) 10/15/17 06:26 BUN 21 mg/dL (9-20) H 10/15/17 06:26 Creatinine 0.9 mg/dL (0.8-1.5) 10/15/17 06:26 Est GFR ( Amer) > 60 10/15/17 06:26 Est GFR (Non-Af Amer) > 60 10/15/17 06:26 Random Glucose 103 mg/dL (75-110) 10/15/17 06:26 Calcium 8.0 mg/dl (8.6-10.4) L 10/15/17 06:26 Total Bilirubin 0.7 mg/dL (0.2-1.3) 10/13/17 08:40 AST 19 U/L (17-59) 10/13/17 08:40 ALT 19 U/L (21-72) L D 10/13/17 08:40 Alkaline Phosphatase 49 U/L (38-126) 10/13/17 08:40 Troponin I < 0.0120 ng/mL (0.00-0.120) 10/10/17 13:41 NT-Pro-B Natriuret Pep 910 pg/mL (0-900) H 10/10/17 13:41 Total Protein 6.6 g/dL (6.3-8.3) 10/13/17 08:40 Albumin 3.3 g/dL (3.5-5.0) L 10/13/17 08:40 Globulin 3.3 gm/dL (2.2-3.9) 10/13/17 08:40 Albumin/Globulin Ratio 1.0 (1.0-2.1) 10/13/17 08:40 Urine Color Yellow (YELLOW) 10/14/17 09:26 Urine Clarity Clear (Clear) 10/14/17 09:26 Urine pH 6.0 (5.0-8.0) 10/14/17 09:26 Ur Specific [place] 1.015 (1.003-1.030) 10/14/17 09:26 Urine Protein Negative mg/dL (NEGATIVE) 10/14/17 09:26 Urine Glucose (UA) Normal mg/dL (Normal) 10/14/17 09: Urine Ketones Negative mg/dL (NEGATIVE) 10/14/17 09:26 Urine Blood Negative (NEGATIVE) 10/14/17 09: Urine Nitrate Negative (NEGATIVE) 10/14/17 09:26 Urine Bilirubin Negative (NEGATIVE) 10/14/17 09:26 Urine Urobilinogen 4.0 mg/dL (0.2-1.0) 10/14/17 09:26 Ur Leukocyte Esterase Neg Maulik/uL (Negative) 10/14/17 09:26 Urine WBC (Auto) < 1 /hpf (0-5) 10/14/17 09:26 Urine RBC (Auto) < 1 /hpf (0-3) 10/14/17 09:26 Ur Squamous Epith Cells < 1 /hpf (0-5) 10/14/17 09:26 Blood Type O POSITIVE 10/14/17 09:26 Antibody Screen Negative 10/14/17 09:26 - Hospital Course Hospital Course: Patient seen today, denies any chest pain, sob, abdominal pain, N/V/D , numbness / tinglings to theRLE POD#1 s/p right total hip replacement POD#1 seen by Ortho today, cleared from ortho standpoint for discharge to [facility] today and f/u with Dr. Huerta office in 2 weeks Discharge Plan - Follow Up Plan Condition: FAIR Disposition: REHAB FACILITY/REHAB UNIT Instructions: Hip Fracture (DC), Total Hip Replacement (DC), Managing Pain After Surgery Additional Instructions: PLEASE ADMIT PATIENT UNDER DR. RODRIGUEZ SERVICE- CALL UPON POATIENT ARRIVAL TO THE FACILITY PLEASE F/U WITH DR. NEWELL OFFICE IN 2 WEEKS - call and make appointment PLEASE DO CBC, BMP SATURDAY AND Q WEEKLY continue WBAT RLE cont VTE proph, PT/OT Referrals: Marky Newell III, MD [Staff Provider] - Keon Rodriguez MD [Staff Provider] -
--- NOTE | 2017-10-16 06:33 | OP ---
PROCEDURE DATE: 10/14/2017 PREOPERATIVE DIAGNOSES: 1. Garden IV subcapital fracture of the right femur. 2. Preexisting right hip osteoarthritis. POSTOPERATIVE DIAGNOSES: 1. Garden IV subcapital fracture of the right femur. 2. Preexisting right hip osteoarthritis. 3. Synovitis. PROCEDURE: 1. Right total hip replacement, anterior approach. 2. Femoral neck osteotomy. 3. Release of iliopsoas tendon. 4. Autograft bone graft, allograft bone graft. 5. Computer navigation. SURGEON: Marky Metcalf MD CARDIOLOGY PHYSICIAN: MARVIN Reyes SECOND NEUROLOGICAL SURGEON: Dewey third year medical student. ESTIMATED BLOOD LOSS: 365 mL. BLOOD PRODUCTS: Two units of packed cells. DRAINS: No drains. TIME OF PROCEDURE: Incision time 11:15. Time in the room, anesthesia induction time 9:35. POSTOPERATIVE CONDITION: Fair. OPERATIVE FINDINGS: As above. OPERATIVE INDICATIONS: Holger Wolff is a 72-year-old gentleman who presented to [facility] on 10/09/2017 after a fall. The patient presents with a fractured hip. He was admitted. Medical clearance for stabilization was accomplished. Pros, cons, risks and benefits of total hip replacement arthroplasty were discussed. The possibility of mechanical failure, infection, thromboembolic disease secondary to tertiary surgery were discussed. The patient noted his understanding of discomfort and wished the surgery to be accomplished. DESCRIPTION OF PROCEDURE: After having obtained informed consent in the above fashion, after having obtained side, site, and procedure and a critical pause/time-out for the right hip after satisfactory induction of spinal and general anesthesia by Dr. Tunde Badillo, the patient was identified as Holger Wolff, was placed in the supine position with all bony prominences well padded. The right lower extremity was placed in the traction in the usual fashion for anterior approach hip surgery. Pros, cons, risks and benefits of surgical approach were discussed. The possibility of mechanical failure or infection, thromboembolic disease, secondary to tertiary surgery had been discussed. After sterilely prepping and draping under the surgeon's direction, the fluoroscope was positioned, video images were generated. Therapeutic decisions were made there from in terms of the height of the femoral neck osteotomy. This having been accomplished, an incision was described 1 cm distal to the ASIS and 3 cm posterior. This having been accomplished, the incision was accomplished in line with the tensor fascia femoris. The skin incision was carried down through the skin and subcutaneous tissue. The fascia overlying the tensor fascia femoris was identified, it was grasped using an Allis clamp and the muscle was taken down from the investing fascia. The Adson-Lashonda modified Medacta retractor was placed in the posterior aspect of rectus femoris. This has developed hemostasis control and the Adson-Lashonda was placed deeper and the capsule was identified. The anterior branch of the lateral femoral circumflex vessels and the lateral femoral circumflex vessels were controlled with ligation and cautery. This having been accomplished, the capsulotomy was accomplished extending from the rim of the acetabulum with the leg in internal rotation and the capsulotomy was accomplished to the area of the intertrochanteric line. The fracture hematoma was expressed. The capsule was elevated and tagged. Great care was taken to take the capsular flap back past the intertrochanteric tubercle. This having been accomplished, the Medacta retractors were placed. The osteotomy was accomplished using an oscillating saw. This having been accomplished with the leg in external rotation, the femoral neck and head were rotated using the 0.5 inch straight osteotome. This having been accomplished, further osteotomies were accomplished of the head to facilitate extraction. The head was extracted and the femoral head was measured to 48 with calculation to a 52 mm head. The Charnley retractor was placed and at this point in time, the head having been extricated, a careful release was accomplished of the pubofemoral ligament. This having been accomplished, the acetabulum was identified, the labrum was excised, the pulvinar was excised as well. Hemostasis was controlled with the Aquamantys. This having been accomplished, reaming was accomplished with the 48 mm to the 52 mm reamer. At this point in time, computer navigation commenced. Using a #11 blade at the anterosuperior iliac spine, the 2 incisions were accomplished. The pins were driven in and the optical camera accelerometer was placed. This having been accomplished, the pelvis was registered ASIS left, ASIS right. This having been accomplished, the registration having been accomplished, reaming having commenced, the tracker was placed on the reamer for abduction of approximately 40 degrees, anteversion of approximately 10 to 15 degrees. This having been verified, reamings were denuded of articular cartilage. The reamer having been employed with the reaming posteriorly, then medially, then superiorly. This having been accomplished, the wound was thoroughly irrigated. Autograft bone grafting to the acetabulum was accomplished. Verification of acetabular position was accomplished with the [employer] Optical Accelerometer. The cup was impacted and the impaction handle was used to support the probe, and was found to be approximately of 40 degrees of abduction, 15 degrees of anteversion. This was found to be acceptable. The cup was impacted and found to be stable. Attention was turned to the femur. With external rotation, the pubofemoral ligament was released. The ischiofemoral ligament was released as well as the obturator fossa. The piriformis was left intact. This having been accomplished, the femur was exposed. The iliopsoas tendon was released as well since there was a bit of a preexisting contracture. This having been accomplished, canal was found, the rat tail rasp was found. Broaching was carried out to a #6 Medacta femoral component, neutral head, and 52 mm outer bearing. The hip was reduced, trialing was accomplished and found to be stable in all planes. At this point in time, the #6 stem was impacted. Neutral metal head was placed with the outer bearing of 52. Th hip was reduced and again was found to be stable in all planes. Flexion and rotation, there was no evidence of instability. The wound was thoroughly irrigated. The fascia was closed with 0 Quill followed by 0 Quill lurdes for skin. Hemostasis had been controlled with FloSeal and thrombin and Gelfoam. Hemostasis having been controlled, compression dressings were applied. Verification of position was offered on image intensification views. Marky Metcalf MD
== END 2017-10-15 18:29 | DRG 470 ==
LOC: C.ER 19:44 → C.6T 22:05
PROVIDERS: ADMIT Internal Medicine; ATTEND Internal Medicine
PROC: 0LNJ0ZZ Release Right Hip Tendon, Open Approach (ICD-10-PCS; 2017-10-14)
PROC: 0QU60KZ Supplement Right Upper Femur with Nonautologous Tissue Substitute, Open Approach (ICD-10-PCS; 2017-10-14)
PROC: 0SR90JA Replacement of Right Hip Joint with Synthetic Substitute, Uncemented, Open Approach (ICD-10-PCS; principal; 2017-10-14 09:35)
DX: S72.011A Unspecified intracapsular fracture of right femur, initial encounter for closed fracture (principal); W18.39XA Other fall on same level, initial encounter; Y93.01 Activity, walking, marching and hiking; G20 Parkinson's disease; M16.11 Unilateral primary osteoarthritis, right hip; M65.9 Synovitis and tenosynovitis, unspecified; Z87.891 Personal history of nicotine dependence

== ENCOUNTER 2017-10-23 18:51 | Inpatient (IN) | payer MEDICARE ==
--- NOTE | 2017-10-23 19:43 | C.PDOC ---
History Of Present Illness Patient is a 72 y/o male who presents to the ED from [facility] with a complaint of fever and right hip pain. Patient reports to have gotten a total right hip replacement secondary to fractured hip last week; admits to bleeding in [facility], prompting visit. Patient is not actively bleeding in ED. No other physical complaints at this time. Time Seen by Provider: 10/23/17 19:43 Chief Complaint (Nursing): Abnormal Skin Integrity History Per: Patient History/Exam Limitations: no limitations Onset/Duration Of Symptoms: Hrs (EQUIPMENT OPERATOR/LABORER ) Current Symptoms Are (Timing): Still Present Location Of Injury: Right: Hip (pain, erythema) Quality Of Symptoms: Painful Severity: Mild Pain Scale Rating Of: 3 Recent travel outside of the [place]: No Additional History Per: Patient Past Medical History Reviewed: Historical Data, Nursing Documentation, Vital Signs Vital Signs: Last Vital Signs Temp 100.2 F H 10/23/17 20:21 Pulse 87 10/23/17 19:01 Resp 16 10/23/17 19:01 BP 104/60 10/23/17 19:01 Pulse Ox 97 10/23/17 20:34 - Medical History PMH: Parkinson's Disease Other Surgeries: R hip replacement (10/09/17) - [facility] Procedures RELEASE RIGHT HIP TENDON, OPEN APPROACH (10/09/17) REPLACE OF R HIP JT WITH SYNTH SUB, UNCEMENT, OPEN APPROACH (10/09/17) SUPPLEMENT RIGHT UPPER FEMUR WITH NONAUT SUB, OPEN APPROACH (10/09/17) Family History: States: No Known Family Hx - Social History Hx Tobacco Use: No (former smoker) Hx Alcohol Use: No (FORMER DRINKER) Hx Substance Use: No - Immunization History Hx Influenza Vaccination: No Hx Pneumococcal Vaccination: No Review Of Systems Constitutional: Positive for: Fever (subjective). Negative for: Chills Eyes: Negative for: Redness ENT: Negative for: Throat Pain Cardiovascular: Negative for: Chest Pain Respiratory: Negative for: Shortness of Breath Gastrointestinal: Negative for: Nausea, Vomiting, Abdominal Pain Genitourinary: Positive for: Dysuria, Other (indwelling hurtado) Musculoskeletal: Positive for: Other (right hip pain) Skin: Positive for: Other (erythema) Neurological: Negative for: Weakness Psych: Negative for: Anxiety Physical Exam - Physical Exam Appears: Well, Non-toxic, No Acute Distress Skin: Warm, Dry, Other (lurdes in place at right hip with mild erythema surrounding incision site) Head: Normacephalic Eye(s): bilateral: Normal Inspection Oral Mucosa: Moist Neck: Supple Chest: Symmetrical Cardiovascular: Rhythm Regular, No Murmur Respiratory: No Decreased Breath Sounds, No Rales, No Rhonchi, No Wheezing Gastrointestinal/Abdominal: Bowel Sounds (positive), Soft, No Tenderness Back: No CVA Tenderness Extremity: No Tenderness, No Deformity, No Swelling, Other (no active bleeding to right hip) Extremity: Bilateral: No Pedal Edema Pulses: Right Femoral: Normal, Left Dorsalis Pedis: Normal, Right Dorsalis Pedis : Normal Neurological/Psych: Oriented x3 (A&Ox3), Normal Speech, Other (cogwheel rigidity , pill rolling) Gait: Unable To Assess ED Course And Treatment - Laboratory Results Result Diagrams: 10/23/17 19:54 10/23/17 19:54 ECG: Interpreted By Me, Viewed By Me ECG Rhythm: Sinus Rhythm (70), Nonspecific Changes O2 Sat by Pulse Oximetry: 97 Pulse Ox Interpretation: Normal - Radiology CXR: Interpreted by Me, Viewed By Me CXR Interpretation: No: Infiltrates, Fracture, Pnemothorax Progress Note: EKG, CXR, UA, urine culture, and blood work ordered. Tylenol administered. Disposition Discussed With DrMilton: Keon Rodriguez Comment: accepted the pt on his service and took over the care at 9:25 AM Doctor Will See Patient In The: Hospital Counseled Patient/Family Regarding: Studies Performed, Diagnosis - Disposition Disposition: HOSPITALIZED Disposition Time: 19:43 Condition: FAIR Forms: [facility] ([place]) - Clinical Impression Clinical Impression: Hip pain, Anemia, Fever, Renal insufficiency - Scribe Statement The provider has reviewed the documentation as recorded by the Scribe Cindy Capone All medical record entries made by the Scribe were at my direction and personally dictated by me. I have reviewed the chart and agree that the record accurately reflects my personal performance of the history, physical exam, medical decision making, and the department course for this patient. I have also personally directed, reviewed, and agree with the discharge instructions and disposition.
[2017-10-23 20:02] LABS: BASO % 0.3 % (0.0-2.0); EOS % 0.2 % (0.0-4.0); HEMOGLOBIN 8.7 g/dL (12.0-18.0); LYMPH # 0.4 K/uL (1.0-4.3); LYMPH % 5.3 % (20.0-40.0); MEAN CELL VOLUME 95.7 fL (80.0-94.0); MEAN CORPUSCULAR HEMOGLOBIN 32.3 pg (27.0-31.0); MEAN CORPUSCULAR HGB CONC 33.8 g/dL (33.0-37.0); MEAN PLATELET VOLUME 7.2 fL (7.2-11.7); MONO # 0.4 K/uL (0.0-0.8); MONO % 6.6 % (0.0-10.0); NEUT # 5.8 K/uL (1.8-7.0); NEUT % 87.6 % (50.0-75.0); NRBC % 0.1 % (0.0-2.0); PLATELET COUNT 375 K/uL (130-400); RBC 2.69 Mil/uL (4.40-5.90); RED CELL DISTRIBUTION WIDTH 13.8 % (11.5-14.5); WHITE BLOOD COUNT 6.7 K/uL (4.8-10.8)
[2017-10-23 20:06] LABS: VENOUS BLOOD GAS BASE EXCESS 0.3 mmol/L (0.0-2.0); VENOUS BLOOD GAS PCO2 38 mmHg (40-60); VENOUS BLOOD GAS PO2 35 mm/Hg (30-55); VENOUS BLOOD PH 7.42 (7.32-7.43)
[2017-10-23 20:20] LABS: ALB/GLOB RATIO 0.8 (1.0-2.1); CALCIUM 8.1 mg/dl (8.6-10.4)
[2017-10-23 20:23] LABS: INR 1.3; PROTHROMBIN TIME 14.2 SECONDS (9.7-12.2)
[2017-10-23 20:42] LABS: URINE BACTERIA RARE (<OCC); URINE BILIRUBIN NEGATIVE (NEGATIVE); URINE BLOOD 2+ (NEGATIVE); URINE CLARITY Clear (Clear); URINE COLOR Yellow (YELLOW); URINE GLUCOSE (UA) NORMAL (Normal); URINE LEUKOCYTE ESTERASE NEG Leu/uL (Negative); URINE PROTEIN NEGATIVE (NEGATIVE); URINE UROBILINOGEN NORMAL mg/dL (0.2-1.0)
[2017-10-23 21:03] LABS: EOSINOPHIL 1 % (0-4); HYPOCHROMIC SLIGHT; LYMPHOCYTE 9 % (20-40); MONOCYTE 1 % (0-10); NEUTROPHIL 89 % (50-75); PLATELET ESTIMATE NORMAL (NORMAL); TOTAL CELLS COUNTED 100
--- NOTE | 2017-10-23 23:06 | CP.PCM.HP ---
History of Present Illness - History of Present Illness History of Present Illness: History Of Present Illness Patient is a 72 y/o male who presents to the ED from [facility] with a complaint of fever and right hip pain. Patient reports to have gotten a total right hip replacement secondary to fractured hip last week; admits to bleeding in [facility], prompting visit. Patient is not actively bleeding in ED. No other physical complaints at this time. Past Patient History - Past Social History Smoking Status: Former Smoker - NEUROLOGICAL Hx Parkinson's Disease: Yes - MUSCULOSKELETAL/RHEUMATOLOGICAL Hx Musculoskeletal Disorders: Yes Hx Falls: Yes - PSYCHIATRIC Hx Substance Use: No - SURGICAL HISTORY Hx Surgeries: Yes Hx Orthopedic Surgery: Yes (RT HIP SX) - ANESTHESIA Hx Anesthesia: Yes Hx Anesthesia Reactions: No Meds Allergies/Adverse Reactions: Allergies Allergy/AdvReac Type Severity Reaction Status Date / Time milk Allergy DIARRHEA Verified 10/23/17 18:56 Milk Containing Products Allergy DIARRHEA Verified 10/23/17 18:56 Results - Vital Signs Recent Vital Signs: Last Vital Signs Temp 98.6 F 10/23/17 21:42 Pulse 66 10/23/17 21:42 Resp 20 10/23/17 21:42 BP 88/50 L 10/23/17 21:42 Pulse Ox 98 10/23/17 21:42 - Labs Result Diagrams: 10/23/17 19:54 10/23/17 19:54 Labs: Laboratory Results - last 24 hr 10/23/17 10/23/17 10/23/17 19:54 19:54 19:54 WBC 6.7 RBC 2.69 L Hgb 8.7 L D Hct 25.8 L MCV 95.7 H D MCH 32.3 H MCHC 33.8 RDW 13.8 Plt Count 375 D MPV 7.2 Neut % (Auto) 87.6 H Lymph % (Auto) 5.3 L [place] % (Auto) 6.6 Eos % (Auto) 0.2 Baso % (Auto) 0.3 Neut # (Auto) 5.8 Lymph # (Auto) 0.4 L [place] # (Auto) 0.4 Eos # (Auto) 0.0 Baso # (Auto) 0.0 Neutrophils % (Manual) 89 H Lymphocytes % (Manual) 9 L Monocytes % (Manual) 1 Eosinophils % (Manual) 1 Platelet Estimate Normal Hypochromasia (manual) Slight PT 14.2 H INR 1.3 APTT 30 pO2 VBG pH VBG pCO2 VBG HCO3 VBG Total CO2 VBG O2 Sat (Calc) VBG Base Excess VBG Potassium Glucose Lactate Sodium 137 Potassium 5.6 H Chloride 100 Carbon Dioxide 23 Anion Gap 20 BUN 84 H Creatinine 3.8 H Est GFR ( Amer) 19 Est GFR (Non-Af Amer) 16 Random Glucose 104 Calcium 8.1 L Total Bilirubin 1.2 AST 39 ALT 10 L D Alkaline Phosphatase 43 Total Protein 6.7 Albumin 3.0 L Globulin 3.7 Albumin/Globulin Ratio 0.8 L Venous Blood Potassium Urine Color Urine Clarity Urine pH Ur Specific [place] Urine Protein Urine Glucose (UA) Urine Ketones Urine Blood Urine Nitrate Urine Bilirubin Urine Urobilinogen Ur Leukocyte Esterase Urine WBC (Auto) Urine RBC (Auto) Urine Bacteria 10/23/17 10/23/17 20:00 20:20 WBC RBC Hgb Hct MCV MCH MCHC RDW Plt Count MPV Neut % (Auto) Lymph % (Auto) [place] % (Auto) Eos % (Auto) Baso % (Auto) Neut # (Auto) Lymph # (Auto) [place] # (Auto) Eos # (Auto) Baso # (Auto) Neutrophils % (Manual) Lymphocytes % (Manual) Monocytes % (Manual) Eosinophils % (Manual) Platelet Estimate Hypochromasia (manual) PT INR APTT pO2 35 VBG pH 7.42 VBG pCO2 38 L VBG HCO3 24.4 VBG Total CO2 25.8 VBG O2 Sat (Calc) 66.0 H VBG Base Excess 0.3 VBG Potassium 4.7 Glucose 109 Lactate 1.0 Sodium 136.0 Potassium Chloride 106.0 Carbon Dioxide Anion Gap BUN Creatinine Est GFR ( Amer) Est GFR (Non-Af Amer) Random Glucose Calcium Total Bilirubin AST ALT Alkaline Phosphatase Total Protein Albumin Globulin Albumin/Globulin Ratio Venous Blood Potassium 4.7 Urine Color Yellow Urine Clarity Clear Urine pH 5.0 Ur Specific [place] 1.011 Urine Protein Negative Urine Glucose (UA) Normal Urine Ketones Negative Urine Blood 2+ H Urine Nitrate Negative Urine Bilirubin Negative Urine Urobilinogen Normal Ur Leukocyte Esterase Neg Urine WBC (Auto) 1 Urine RBC (Auto) 18 H Urine Bacteria Rare
[2017-10-23] MEDS ORDERED: Sodium Chloride 0.9% 500 ML IV ONE (23:35)
[2017-10-24] MEDS: Sodium Chloride 0.9% 1,000 ML IV SCH ×3 (00:30→19:38)
[2017-10-24 00:49] LABS: IRON 10 ug/dL (49-181); TOTAL IRON BINDING CAPACITY 203 ug/dL (250-450)
[2017-10-24 00:50] LABS: % IRON SATURATION 5 (20-55)
[2017-10-24 08:16] LABS: HEMOGLOBIN 7.7 g/dL (12.0-18.0); MEAN CELL VOLUME 96.1 fL (80.0-94.0); MEAN CORPUSCULAR HEMOGLOBIN 33.6 pg (27.0-31.0); MEAN PLATELET VOLUME 7.3 fL (7.2-11.7); RBC 2.29 Mil/uL (4.40-5.90); WHITE BLOOD COUNT 4.4 K/uL (4.8-10.8)
[2017-10-24 08:31] LABS: BLOOD UREA NITROGEN 40 mg/dL (9-20); CALCIUM 7.8 mg/dl (8.6-10.4); GFR AFRICAN-AMERICAN > 60; GFR NON-AFRICAN AMERICAN > 60
--- NOTE | 2017-10-24 09:08 | CP.PCM.CON ---
History of Present Illness - History of Present Illness History of Present Illness: Patient is a 72 y/o male with PMH of Parkinson's disease admitted for fever and L hip bloody drainage. Dr. Luna was consulted for orthopedic evaluation. Patient is s/p R anterior CHARISSA performed on 10/09/[address] Metcalf. His postoperative course was uneventful and was discharged to rehab stable. Patient noticed bloody discharge from the surgical wound yesterday which prompted his transfer to the hospital. Currently, he denies any worsening of his pain since the time of the procedure. The pain is well controlled with pain meds and states that he is tolerating PT well. He denies radiation of pain, numbness or tingling. He denies DP/SOB/N/V/D/JAMES/dysuria/melena. Review of Systems - Review of Systems All systems: reviewed and no additional remarkable complaints except Review of Systems: as per HPI Past Patient History - Past Medical History & Family History Past Medical History?: Yes Past Family History: Reviewed and not pertinent - Past Social History Smoking Status: Former Smoker Alcohol: None Drugs: Denies - CARDIAC Hx Cardiac Disorders: No - PULMONARY Hx Respiratory Disorders: No - NEUROLOGICAL Hx Neurological Disorder: Yes Hx Parkinson's Disease: Yes - HEENT Hx HEENT Problems: No - RENAL Hx Chronic Kidney Disease: No - ENDOCRINE/METABOLIC Hx Endocrine Disorders: No - HEMATOLOGICAL/ONCOLOGICAL Hx Blood Disorders: No - INTEGUMENTARY Hx Dermatological Problems: No - MUSCULOSKELETAL/RHEUMATOLOGICAL Hx Musculoskeletal Disorders: Yes Hx Falls: Yes Hx Fractures: Yes (right hip) - GASTROINTESTINAL Hx Gastrointestinal Disorders: No - GENITOURINARY/GYNECOLOGICAL Hx Genitourinary Disorders: No - PSYCHIATRIC Hx Psychophysiologic Disorder: No Hx Substance Use: No - SURGICAL HISTORY Hx Surgeries: Yes Hx Orthopedic Surgery: Yes (RT HIP fX) - ANESTHESIA Hx Anesthesia: Yes Hx Anesthesia Reactions: No Hx Malignant Hyperthermia: No Has any member of the family had a problem w/ anesthesia?: No Meds Allergies/Adverse Reactions: Allergies Allergy/AdvReac Type Severity Reaction Status Date / Time milk Allergy DIARRHEA Verified 10/23/17 18:56 Milk Containing Products Allergy DIARRHEA Verified 10/23/17 18:56 - Medications Medications: Current Medications Acetaminophen (Tylenol 325mg Tab) 650 mg PO Q4 PRN PRN Reason: Fever >100.4 F Carbidopa/Levodopa (Sinemet) 1 tab PO TID [facility] Docusate Sodium (Colace) 100 mg PO BID [facility] Enoxaparin Sodium (Lovenox) 40 mg SC DAILY [facility] Ferric Sodium Gluconate Complex (Ferrlecit) 125 mg IVPB DAILY [facility] Stop: 11/01/17 10:01 Sodium Chloride (Sodium Chloride 0.9%) 1,000 mls @ 100 mls/hr IV .Q10H [facility] Last Admin: 10/24/17 00:30 Dose: 100 mls/hr Oxycodone/Acetaminophen (Percocet 5/325 Mg Tab) 1 tab PO Q4H PRN PRN Reason: PCEA Breakthrough Pain Stop: 10/26/17 23:14 Pneumococcal Polyvalent Vaccine (Pneumovax 23 Vaccine) 0.5 ml IM .ONCE ONE Stop: 10/25/17 14:01 Physical Exam - Constitutional Appears: No Acute Distress - Eye Exam Eye Exam: EOMI, Normal appearance, PERRL - ENT Exam ENT Exam: Mucous Membranes Moist - Respiratory Exam Respiratory Exam: NORMAL BREATHING PATTERN - GI/Abdominal Exam GI & Abdominal Exam: Normal Bowel Sounds, Soft. absent: Tenderness - Extremities Exam Additional comments: R hip: dressings with dry sangiunous drainage, anterior wound CDI with lurdes, dark/ old blood expressed from distal wound to most proximal aspect of the wound mild swelling, mild edema distally, sutures intact at intellijoint portals sensation intact SP/DP/TN motor intact EHL/FHL/TA/G pedal pulses intact comp soft/NT b/l - Neurological Exam Neurological exam: Alert, Oriented x3 - Psychiatric Exam Psychiatric exam: Normal Affect, Normal Mood - Skin Skin Exam: Normal Color, Warm Results - Vital Signs Recent Vital Signs: Last Vital Signs Temp 98.5 F 10/24/17 07:00 Pulse 68 10/24/17 07:00 Resp 20 10/24/17 07:00 BP 93/46 L 10/24/17 07:00 Pulse Ox 96 10/24/17 07:00 - Labs Result Diagrams: 10/25/17 08:12 10/25/17 08:12 Labs: Laboratory Results - last 24 hr 10/23/17 10/23/17 10/23/17 19:54 19:54 19:54 WBC 6.7 RBC 2.69 L Hgb 8.7 L D Hct 25.8 L MCV 95.7 H D MCH 32.3 H MCHC 33.8 RDW 13.8 Plt Count 375 D MPV 7.2 Neut % (Auto) 87.6 H Lymph % (Auto) 5.3 L [place] % (Auto) 6.6 Eos % (Auto) 0.2 Baso % (Auto) 0.3 Neut # (Auto) 5.8 Lymph # (Auto) 0.4 L [place] # (Auto) 0.4 Eos # (Auto) 0.0 Baso # (Auto) 0.0 Neutrophils % (Manual) 89 H Lymphocytes % (Manual) 9 L Monocytes % (Manual) 1 Eosinophils % (Manual) 1 Platelet Estimate Normal Hypochromasia (manual) Slight PT 14.2 H INR 1.3 APTT 30 pO2 VBG pH VBG pCO2 VBG HCO3 VBG Total CO2 VBG O2 Sat (Calc) VBG Base Excess VBG Potassium Glucose Lactate Sodium 137 Potassium 5.6 H Chloride 100 Carbon Dioxide 23 Anion Gap 20 BUN 84 H Creatinine 3.8 H Est GFR ( Amer) 19 Est GFR (Non-Af Amer) 16 Random Glucose 104 Calcium 8.1 L Iron TIBC % Saturation Total Bilirubin 1.2 AST 39 ALT 10 L D Alkaline Phosphatase 43 Total Protein 6.7 Albumin 3.0 L Globulin 3.7 Albumin/Globulin Ratio 0.8 L Prostate Specific Ag Venous Blood Potassium Urine Color Urine Clarity Urine pH Ur Specific [place] Urine Protein Urine Glucose (UA) Urine Ketones Urine Blood Urine Nitrate Urine Bilirubin Urine Urobilinogen Ur Leukocyte Esterase Urine WBC (Auto) Urine RBC (Auto) Urine Bacteria Ur Random Sodium 10/23/17 10/23/17 10/23/17 20:00 20:20 23:52 WBC RBC Hgb Hct MCV MCH MCHC RDW Plt Count MPV Neut % (Auto) Lymph % (Auto) [place] % (Auto) Eos % (Auto) Baso % (Auto) Neut # (Auto) Lymph # (Auto) [place] # (Auto) Eos # (Auto) Baso # (Auto) Neutrophils % (Manual) Lymphocytes % (Manual) Monocytes % (Manual) Eosinophils % (Manual) Platelet Estimate Hypochromasia (manual) PT INR APTT pO2 35 VBG pH 7.42 VBG pCO2 38 L VBG HCO3 24.4 VBG Total CO2 25.8 VBG O2 Sat (Calc) 66.0 H VBG Base Excess 0.3 VBG Potassium 4.7 Glucose 109 Lactate 1.0 Sodium 136.0 Potassium Chloride 106.0 Carbon Dioxide Anion Gap BUN Creatinine Est GFR ( Amer) Est GFR (Non-Af Amer) Random Glucose Calcium Iron TIBC % Saturation Total Bilirubin AST ALT Alkaline Phosphatase Total Protein Albumin Globulin Albumin/Globulin Ratio Prostate Specific Ag 1.86 Venous Blood Potassium 4.7 Urine Color Yellow Urine Clarity Clear Urine pH 5.0 Ur Specific [place] 1.011 Urine Protein Negative Urine Glucose (UA) Normal Urine Ketones Negative Urine Blood 2+ H Urine Nitrate Negative Urine Bilirubin Negative Urine Urobilinogen Normal Ur Leukocyte Esterase Neg Urine WBC (Auto) 1 Urine RBC (Auto) 18 H Urine Bacteria Rare Ur Random Sodium 10/23/17 10/23/17 10/24/17 23:52 23:55 08:06 WBC RBC Hgb Hct MCV MCH MCHC RDW Plt Count MPV Neut % (Auto) Lymph % (Auto) [place] % (Auto) Eos % (Auto) Baso % (Auto) Neut # (Auto) Lymph # (Auto) [place] # (Auto) Eos # (Auto) Baso # (Auto) Neutrophils % (Manual) Lymphocytes % (Manual) Monocytes % (Manual) Eosinophils % (Manual) Platelet Estimate Hypochromasia (manual) PT INR APTT pO2 VBG pH VBG pCO2 VBG HCO3 VBG Total CO2 VBG O2 Sat (Calc) VBG Base Excess VBG Potassium Glucose Lactate Sodium 142 Potassium 3.8 Chloride 108 H Carbon Dioxide 24 Anion Gap 15 BUN 40 H Creatinine 1.1 Est GFR ( Amer) > 60 Est GFR (Non-Af Amer) > 60 Random Glucose 84 Calcium 7.8 L Iron 10 L TIBC 203 L % Saturation 5 L Total Bilirubin AST ALT Alkaline Phosphatase Total Protein Albumin Globulin Albumin/Globulin Ratio Prostate Specific Ag Venous Blood Potassium Urine Color Urine Clarity Urine pH Ur Specific [place] Urine Protein Urine Glucose (UA) Urine Ketones Urine Blood Urine Nitrate Urine Bilirubin Urine Urobilinogen Ur Leukocyte Esterase Urine WBC (Auto) Urine RBC (Auto) Urine Bacteria Ur Random Sodium 28 10/24/17 08:06 WBC 4.4 L RBC 2.29 L Hgb 7.7 L Hct 22.0 L MCV 96.1 H MCH 33.6 H MCHC 35.0 RDW 14.0 Plt Count 313 MPV 7.3 Neut % (Auto) Lymph % (Auto) [place] % (Auto) Eos % (Auto) Baso % (Auto) Neut # (Auto) Lymph # (Auto) [place] # (Auto) Eos # (Auto) Baso # (Auto) Neutrophils % (Manual) Lymphocytes % (Manual) Monocytes % (Manual) Eosinophils % (Manual) Platelet Estimate Hypochromasia (manual) PT INR APTT pO2 VBG pH VBG pCO2 VBG HCO3 VBG Total CO2 VBG O2 Sat (Calc) VBG Base Excess VBG Potassium Glucose Lactate Sodium Potassium Chloride Carbon Dioxide Anion Gap BUN Creatinine Est GFR ( Amer) Est GFR (Non-Af Amer) Random Glucose Calcium Iron TIBC % Saturation Total Bilirubin AST ALT Alkaline Phosphatase Total Protein Albumin Globulin Albumin/Globulin Ratio Prostate Specific Ag Venous Blood Potassium Urine Color Urine Clarity Urine pH Ur Specific [place] Urine Protein Urine Glucose (UA) Urine Ketones Urine Blood Urine Nitrate Urine Bilirubin Urine Urobilinogen Ur Leukocyte Esterase Urine WBC (Auto) Urine RBC (Auto) Urine Bacteria Ur Random Sodium Assessment & Plan - Assessment and Plan (Free Text) Assessment: Patient is POD#15 s/p R anterior CHARISSA Plan: -Old blood expressed from wound, infection less likely -Start wet to dry dressings daily -DVT ppx -PT/OT -above d/w Dr. Sanjeev Dickson as well as Dr. Metcalf in agreement - Date & Time Date: 10/24/17 Time: 08:30 Radiology Interpretation - Buyer Agent Buyer Agent:: Radiologist - Study type Study type:: Plain films - Radiology Interpretation #2 Interpretation: PROCEDURE: Pelvis right hip HISTORY: s/p R CHARISSA COMPARISON: 07/16/2017 TECHNIQUE: Standard protocol for this study/examination. FINDINGS: Stable position, configuration of right CHARISSA. IMPRESSION: Stable position of components right CHARISSA.
[2017-10-24] MEDS: Ferric Sodium Gluconat Complex 62.5 mg/5 ml Vial IVPB SCH (09:15)
[2017-10-24] MEDS: Enoxaparin 40 mg Syringe SC SCH ×2 (09:16→11:36)
[2017-10-24] MEDS ORDERED: Enoxaparin 40 mg Syringe SC SCH (10:00)
--- NOTE | 2017-10-24 11:06 | RAD ---
HISTORY: SOB COMPARISON: Chest x-ray 10/09/2017 TECHNIQUE: Single portable AP view of the chest was obtained FINDINGS: LUNGS: Focal area of increased interstitial markings left lower lung field that may represent developing airspace opacity. PLEURA: There is no significant right pleural effusion. Left costophrenic angle is excluded from the image and a trace left pleural effusion cannot be excluded. CARDIOVASCULAR: Heart size is within normal limits. OSSEOUS STRUCTURES: Bones are demineralized. VISUALIZED UPPER ABDOMEN: Unremarkable. OTHER FINDINGS: None. IMPRESSION: Focal area of increased interstitial markings left lower lung field that may represent developing airspace opacity.
[2017-10-24] MEDS: Oxycodone/Acetaminophen 5/325 mg Tab PO PRN ×2 (14:12→20:35)
--- NOTE | 2017-10-24 14:48 | RAD ---
PROCEDURE: Pelvis right hip HISTORY: s/p R CHARISSA COMPARISON: 07/16/2017 TECHNIQUE: Standard protocol for this study/examination. FINDINGS: Stable position, configuration of right CHARISSA. IMPRESSION: Stable position of components right CHARISSA.
--- NOTE | 2017-10-24 14:58 | CARD ---
APPROVED REPORT EKG Measurement Heart [id number] <Conclusion> nsr. baseline artifact Abnormal ECG
--- NOTE | 2017-10-24 17:10 | CP.PCM.PN ---
Subjective - Date & Time of Evaluation Date of Evaluation: 10/24/17 Time of Evaluation: 17:00 - Subjective Subjective: patient seen at bed side awake, alert, oriented x 3 , c/o mild pain to the LE , denies any chest pain, sob, dizziness, BP - LOW ( low 90,s - high 80,s ) hgb- 7.7<8.7 Objective - Vital Signs/Intake and Output Vital Signs (last 24 hours): Temp Pulse Resp BP Pulse Ox 98.0 F 67 16 101/48 L 96 10/24/17 16:44 10/24/17 16:44 10/24/17 16:44 10/24/17 16:44 10/24/17 15:00 Intake and Output: 10/24/17 10/24/17 06:59 18:59 Intake Total 1600 Output Total 500 1600 Balance -500 0 - Medications Medications: Current Medications Acetaminophen (Tylenol 325mg Tab) 650 mg PO Q4 PRN PRN Reason: Fever >100.4 F Carbidopa/Levodopa (Sinemet) 1 tab PO TID [facility] Last Admin: 10/24/17 14:09 Dose: 1 tab Docusate Sodium (Colace) 100 mg PO BID [facility] Last Admin: 10/24/17 09:16 Dose: 100 mg Enoxaparin Sodium (Lovenox) 40 mg SC DAILY [facility] Last Admin: 10/24/17 11:36 Dose: Not Given Ferric Sodium Gluconate Complex (Ferrlecit) 125 mg IVPB DAILY [facility] Stop: 11/01/17 10:01 Last Admin: 10/24/17 09:15 Dose: 125 mg Sodium Chloride (Sodium Chloride 0.9%) 1,000 mls @ 100 mls/hr IV .Q10H [facility] Last Admin: 10/24/17 14:15 Dose: 100 mls/hr Sodium Chloride (Sodium Chloride 0.9%) 500 mls @ 250 mls/hr IV .Q2H [facility] Stop: 10/24/17 18:59 Oxycodone/Acetaminophen (Percocet 5/325 Mg Tab) 1 tab PO Q4H PRN PRN Reason: PCEA Breakthrough Pain Stop: 10/26/17 23:14 Last Admin: 10/24/17 14:12 Dose: 1 tab Pneumococcal Polyvalent Vaccine (Pneumovax 23 Vaccine) 0.5 ml IM .ONCE ONE Stop: 10/25/17 14:01 - Labs Labs: 10/24/17 08:06 10/24/17 08:06 PT 14.2 SECONDS (9.7-12.2) H 10/23/17 19:54 INR 1.3 10/23/17 19:54 APTT 30 SECONDS (21-34) 10/23/17 19:54 Assessment and Plan - Assessment and Plan (Free Text) Assessment: A/P 72 y/o male admitted from [facility] with a complaint of fever , right hip pain. anemia, urinary retention hgb- 7.7 - will transfuse 1 unit of blood hypotension noted - pt asymptomatic- will give 500 ml nss bolus and continue IV f @100 ml/hr Ortho PA seen patient and dressing changed, recommends antibiotics will start vanco and rocephin and Dr. Dong ID consult will transfuse total of 2 units of PRBC and repeat blood work in am The above plan discussed with Dr. Rodriguez and agrees with plan
[2017-10-24] MEDS ORDERED: Sodium Chloride 0.9% 500 ML IV ONE (18:00)
[2017-10-24] MEDS: Vancomycin 1 gm/NS 200 ml 1 GM/200 ML BAG IVPB SCH (20:35)
--- NOTE | 2017-10-24 21:07 | CP.PCM.CON ---
History of Present Illness - History of Present Illness History of Present Illness: INFECTIOUS DISEASE CONSULT; HPI; 72 y/o male with PMH of Parkinson's disease admitted 10/23/17 for fever and L hip bloody drainage. Patient is s/p R anterior CHARISSA performed on 10/09/[address] Metcalf. His postoperative course was uneventful and was discharged to rehab stable. Patient noticed bloody discharge from the surgical wound yesterday which prompted his transfer to the hospital. Currently, he denies any worsening of his pain since the time of the procedure. The pain is well controlled with pain meds and states that he is tolerating PT well. He denies radiation of pain, numbness or tingling. PATIENT WAS FOUND TO BE HYPOTENSIVE TODAY WITH FEVER AND RIGHT HIP PAIN WHICH PROMPTED INFECTIOUS DISEASE CONSULT. PATIENT PRESENTLY GETTING SECOND UNIT OF PACKED RED BLOOD CELLS DUE TO DECREASING HEMOGLOBIN. PATIENT DENIES SHORTNESS OF BREATH, CHEST PAIN OR PALPITATIONS. PATIENT DENIES ANY NAUSEA/VOMITING OR DIARRHEA. PMH: Parkinson's Disease Other Surgeries: R hip replacement (10/09/17) - [facility] Procedures RELEASE RIGHT HIP TENDON, OPEN APPROACH (10/09/17) REPLACE OF R HIP JT WITH SYNTH SUB, UNCEMENT, OPEN APPROACH (10/09/17) SUPPLEMENT RIGHT UPPER FEMUR WITH NONAUT SUB, OPEN APPROACH (10/09/17) Family History: States: No Known Family Hx - Social History Hx Tobacco Use: No (former smoker) Hx Alcohol Use: No (FORMER DRINKER) Hx Substance Use: No - Immunization History Hx Influenza Vaccination: No Hx Pneumococcal Vaccination: No Review of Systems - Constitutional Constitutional: Chills, Fatigue, Fever - EENT Eyes: absent: Blurred Vision, Photophobia Nose/Mouth/Throat: absent: Sore Throat - Cardiovascular Cardiovascular: absent: Chest Pain, Dyspnea - Respiratory Respiratory: absent: Cough, Hemoptysis - Gastrointestinal Gastrointestinal: absent: Abdominal Pain, Constipation, Diarrhea, Nausea, Vomiting - Genitourinary Genitourinary: absent: Dysuria, Hematuria - Musculoskeletal Musculoskeletal: Limited Range of Motion - Neurological Neurological: absent: Dizziness, Headaches - Hematologic/Lymphatic Hematologic: As Per HPI. absent: Easy Bleeding, Easy Bruising, Lymphadenopathy Past Patient History - Past Medical History & Family History Past Medical History?: Yes Past Family History: Reviewed and not pertinent - Past Social History Smoking Status: Former Smoker Alcohol: None Drugs: Denies - CARDIAC Hx Cardiac Disorders: No - PULMONARY Hx Respiratory Disorders: No - NEUROLOGICAL Hx Neurological Disorder: Yes Hx Parkinson's Disease: Yes - HEENT Hx HEENT Problems: No - RENAL Hx Chronic Kidney Disease: No - ENDOCRINE/METABOLIC Hx Endocrine Disorders: No - HEMATOLOGICAL/ONCOLOGICAL Hx Blood Disorders: No - INTEGUMENTARY Hx Dermatological Problems: No - MUSCULOSKELETAL/RHEUMATOLOGICAL Hx Musculoskeletal Disorders: Yes Hx Falls: Yes Hx Fractures: Yes (right hip) - GASTROINTESTINAL Hx Gastrointestinal Disorders: No - GENITOURINARY/GYNECOLOGICAL Hx Genitourinary Disorders: No - PSYCHIATRIC Hx Psychophysiologic Disorder: No Hx Substance Use: No - SURGICAL HISTORY Hx Surgeries: Yes Hx Orthopedic Surgery: Yes (RT HIP fX) - ANESTHESIA Hx Anesthesia: Yes Hx Anesthesia Reactions: No Hx Malignant Hyperthermia: No Has any member of the family had a problem w/ anesthesia?: No Meds Allergies/Adverse Reactions: Allergies Allergy/AdvReac Type Severity Reaction Status Date / Time milk Allergy DIARRHEA Verified 10/23/17 18:56 Milk Containing Products Allergy DIARRHEA Verified 10/23/17 18:56 - Medications Medications: Current Medications Acetaminophen (Tylenol 325mg Tab) 650 mg PO Q4 PRN PRN Reason: Fever >100.4 F Carbidopa/Levodopa (Sinemet) 1 tab PO TID [facility] Last Admin: 10/24/17 17:58 Dose: 1 tab Docusate Sodium (Colace) 100 mg PO BID [facility] Last Admin: 10/24/17 17:58 Dose: 100 mg Enoxaparin Sodium (Lovenox) 40 mg SC DAILY [facility] Last Admin: 10/24/17 11:36 Dose: Not Given Ferric Sodium Gluconate Complex (Ferrlecit) 125 mg IVPB DAILY [facility] Stop: 11/01/17 10:01 Last Admin: 10/24/17 09:15 Dose: 125 mg Sodium Chloride (Sodium Chloride 0.9%) 1,000 mls @ 100 mls/hr IV .Q10H [facility] Last Admin: 10/24/17 19:38 Dose: 100 mls/hr Ceftriaxone Sodium 1 gm/ (Sodium Chloride) 100 mls @ 100 mls/hr IVPB DAILY [facility] PRN Reason: Protocol Last Admin: 10/24/17 19:38 Dose: 100 mls/hr Vancomycin/Sodium Chloride (Vancomycin 1 Gm/Ns 200 Ml) 1 gm in 200 mls @ 166.7 mls/hr IVPB Q24H [facility] PRN Reason: Protocol Stop: 10/29/17 18:01 Last Admin: 10/24/17 20:35 Dose: 166.7 mls/hr Oxycodone/Acetaminophen (Percocet 5/325 Mg Tab) 1 tab PO Q4H PRN PRN Reason: PCEA Breakthrough Pain Stop: 10/26/17 23:14 Last Admin: 10/24/17 20:35 Dose: 1 tab Pneumococcal Polyvalent Vaccine (Pneumovax 23 Vaccine) 0.5 ml IM .ONCE ONE Stop: 10/25/17 14:01 Physical Exam - Constitutional Appears: No Acute Distress - Head Exam Head Exam: NORMAL INSPECTION - Eye Exam Eye Exam: EOMI, PERRL - ENT Exam ENT Exam: Mucous Membranes Moist - Neck Exam Neck exam: Positive for: Normal Inspection - Respiratory Exam Respiratory Exam: Clear to Auscultation Bilateral - Cardiovascular Exam Cardiovascular Exam: REGULAR RHYTHM, +S1, +S2 - GI/Abdominal Exam GI & Abdominal Exam: Normal Bowel Sounds, Soft. absent: Tenderness - Extremities Exam Extremities exam: Positive for: pedal pulses present (RT UPPER THIGH DRESSING IN PLACE C/D/I S/P DRAINAGE HEMATOMA). Negative for: calf tenderness, pedal edema - Neurological Exam Neurological exam: Alert, CN II-XII Intact, Oriented x3 - Psychiatric Exam Psychiatric exam: Normal Mood - Skin Skin Exam: Pallor, Warm Results - Vital Signs Recent Vital Signs: Last Vital Signs Temp 98.0 F 10/24/17 20:22 Pulse 65 10/24/17 20:22 Resp 12 10/24/17 20:22 BP 104/74 10/24/17 20:22 Pulse Ox 96 10/24/17 15:00 - Labs Result Diagrams: 10/24/17 08:06 10/24/17 08:06 Labs: Laboratory Results - last 24 hr 10/23/17 10/23/17 10/23/17 23:52 23:52 23:55 WBC RBC Hgb Hct MCV MCH MCHC RDW Plt Count MPV Sodium Potassium Chloride Carbon Dioxide Anion Gap BUN Creatinine Est GFR ( Amer) Est GFR (Non-Af Amer) Random Glucose Calcium Iron 10 L TIBC 203 L % Saturation 5 L C-React Prot High Sens Prostate Specific Ag 1.86 Ur Random Sodium 28 Blood Type Antibody Screen 10/24/17 10/24/17 10/24/17 08:06 08:06 11:41 WBC 4.4 L RBC 2.29 L Hgb 7.7 L Hct 22.0 L MCV 96.1 H MCH 33.6 H MCHC 35.0 RDW 14.0 Plt Count 313 MPV 7.3 Sodium 142 Potassium 3.8 Chloride 108 H Carbon Dioxide 24 Anion Gap 15 BUN 40 H Creatinine 1.1 Est GFR ( Amer) > 60 Est GFR (Non-Af Amer) > 60 Random Glucose 84 Calcium 7.8 L Iron TIBC % Saturation C-React Prot High Sens Prostate Specific Ag Ur Random Sodium Blood Type O POSITIVE Antibody Screen Negative 10/24/17 19:41 WBC RBC Hgb Hct MCV MCH MCHC RDW Plt Count MPV Sodium Potassium Chloride Carbon Dioxide Anion Gap BUN Creatinine Est GFR ( Amer) Est GFR (Non-Af Amer) Random Glucose Calcium Iron TIBC % Saturation C-React Prot High Sens > 15.00 H Prostate Specific Ag Ur Random Sodium Blood Type Antibody Screen - Imaging and Cardiology Chest x-ray Status: Report reviewed by me ([employer].) Assessment & Plan (1) Pneumonia Assessment and Plan: PANCULTURE. ESR CRP, START iv rOCEPHIN 1 GM IVPB QD DAILY.10/24/17. ADD IV VANCOMYCIN 1 G ONCE A DAY DAILY 10/24/17. fOLLOW-UP vANCO TROUGH PRIOR TO THE THIRD DOSE AND KEEP BETWEEN 10 AND 20. fOLLOW-UP RENAL FUNCTION iv FLUIDS PER PMD. Status: Acute (2) Fever Assessment and Plan: W/U IN PROGRESS. CONTINUE iv ANTIBIOTICS FOLLOW-UP CULTURES TO ADJUST ANTIBIOTICS. Status: Acute (3) Hip pain Assessment and Plan: S/P DRAINAGE HEMATOMA RT HIP . Status: Acute (4) Anemia Status: Acute (5) Fracture of right hip Status: Acute (6) Renal insufficiency Assessment and Plan: S/P THR 10/09/17 Status: Acute
--- NOTE | 2017-10-24 23:29 | CP.PCM.PN ---
Objective - Vital Signs/Intake and Output Vital Signs (last 24 hours): Temp Pulse Resp BP Pulse Ox 98.2 F 66 12 104/44 L 96 10/24/17 22:29 10/24/17 22:29 10/24/17 22:29 10/24/17 22:29 10/24/17 15:00 Intake and Output: 10/24/17 10/25/17 18:59 06:59 Intake Total 1600 650 Output Total 1800 Balance -200 650 - Medications Medications: Current Medications Acetaminophen (Tylenol 325mg Tab) 650 mg PO Q4 PRN PRN Reason: Fever >100.4 F Carbidopa/Levodopa (Sinemet) 1 tab PO TID [facility] Last Admin: 10/24/17 17:58 Dose: 1 tab Docusate Sodium (Colace) 100 mg PO BID [facility] Last Admin: 10/24/17 17:58 Dose: 100 mg Enoxaparin Sodium (Lovenox) 40 mg SC DAILY [facility] Last Admin: 10/24/17 11:36 Dose: Not Given Ferric Sodium Gluconate Complex (Ferrlecit) 125 mg IVPB DAILY [facility] Stop: 11/01/17 10:01 Last Admin: 10/24/17 09:15 Dose: 125 mg Sodium Chloride (Sodium Chloride 0.9%) 1,000 mls @ 100 mls/hr IV .Q10H [facility] Last Admin: 10/24/17 19:38 Dose: 100 mls/hr Ceftriaxone Sodium 1 gm/ (Sodium Chloride) 100 mls @ 100 mls/hr IVPB DAILY [facility] PRN Reason: Protocol Last Admin: 10/24/17 19:38 Dose: 100 mls/hr Vancomycin/Sodium Chloride (Vancomycin 1 Gm/Ns 200 Ml) 1 gm in 200 mls @ 166.7 mls/hr IVPB Q24H [facility] PRN Reason: Protocol Stop: 10/29/17 18:01 Last Admin: 10/24/17 20:35 Dose: 166.7 mls/hr Oxycodone/Acetaminophen (Percocet 5/325 Mg Tab) 1 tab PO Q4H PRN PRN Reason: PCEA Breakthrough Pain Stop: 10/26/17 23:14 Last Admin: 10/24/17 20:35 Dose: 1 tab Pneumococcal Polyvalent Vaccine (Pneumovax 23 Vaccine) 0.5 ml IM .ONCE ONE Stop: 10/25/17 14:01 - Labs Labs: 10/24/17 08:06 10/24/17 08:06 PT 14.2 SECONDS (9.7-12.2) H 10/23/17 19:54 INR 1.3 10/23/17 19:54 APTT 30 SECONDS (21-34) 10/23/17 19:54
[2017-10-25] MEDS: Sodium Chloride 0.9% 1,000 ML IV SCH ×3 (05:36→17:32)
--- NOTE | 2017-10-25 07:19 | CON ---
DATE: 10/24/2017 Consultation at the request of Dr. Rodriguez. This is a 72-year-old male with history of Parkinson's disease and grossly hypertrophic onychomycosis of both feet. Neurovascular status is diminished, but there are no signs of any ischemic changes. No signs of ulcerations or gangrene. Grossly hypertrophic onychomycosis, which was debrided at bedside without incident. Daron Mckoy DPM
[2017-10-25 08:29] LABS: BASO % 0.4 % (0.0-2.0); EOS # 0.3 K/uL (0.0-0.7); EOS % 5.5 % (0.0-4.0); LYMPH # 0.8 K/uL (1.0-4.3); LYMPH % 15.4 % (20.0-40.0); MEAN CORPUSCULAR HEMOGLOBIN 31.6 pg (27.0-31.0); MEAN CORPUSCULAR HGB CONC 33.8 g/dL (33.0-37.0); MEAN PLATELET VOLUME 7.6 fL (7.2-11.7); MONO # 0.5 K/uL (0.0-0.8); MONO % 9.5 % (0.0-10.0); NEUT # 3.5 K/uL (1.8-7.0); NEUT % 69.2 % (50.0-75.0); RBC 2.85 Mil/uL (4.40-5.90); RED CELL DISTRIBUTION WIDTH 15.2 % (11.5-14.5)
[2017-10-25 08:30] LABS: MEAN CELL VOLUME 93.5 fL (80.0-94.0)
[2017-10-25 08:35] LABS: BLOOD UREA NITROGEN 17 mg/dL (9-20); CALCIUM 7.9 mg/dl (8.6-10.4); GFR AFRICAN-AMERICAN > 60; GFR NON-AFRICAN AMERICAN > 60
[2017-10-25] MEDS: Ferric Sodium Gluconat Complex 62.5 mg/5 ml Vial IVPB SCH (10:00)
[2017-10-25] MEDS: Enoxaparin 40 mg Syringe SC SCH (10:14)
[2017-10-25] MEDS: Oxycodone/Acetaminophen 5/325 mg Tab PO PRN ×2 (10:26→22:38)
[2017-10-25] MEDS: Ergocalciferol 50,000 Intl Units Cap PO SCH (11:09)
--- NOTE | 2017-10-25 12:48 | CP.PCM.PN ---
<Mark Hobbs - Last Filed: 10/25/17 12:48> Subjective - Date & Time of Evaluation Date of Evaluation: 10/25/17 Time of Evaluation: 12:44 - Subjective Subjective: Patient states that pain in hip is a little better. He denies any new complaints. Objective - Vital Signs/Intake and Output Vital Signs (last 24 hours): Temp Pulse Resp BP Pulse Ox 98.4 F 62 20 94/45 L 98 10/25/17 08:15 10/25/17 08:15 10/25/17 08:15 10/25/17 08:15 10/25/17 04:00 Intake and Output: 10/25/17 10/25/17 06:59 18:59 Intake Total 1930 Output Total 450 Balance 1480 - Medications Medications: Current Medications Acetaminophen (Tylenol 325mg Tab) 650 mg PO Q4 PRN PRN Reason: Fever >100.4 F Carbidopa/Levodopa (Sinemet) 1 tab PO TID [facility] Last Admin: 10/25/17 10:20 Dose: 1 tab Docusate Sodium (Colace) 100 mg PO BID [facility] Last Admin: 10/25/17 10:13 Dose: 100 mg Enoxaparin Sodium (Lovenox) 40 mg SC DAILY [facility] Last Admin: 10/25/17 10:14 Dose: 40 mg Ergocalciferol (Drisdol 50,000 Intl Units Cap) 1 cap PO Q7D [facility] Last Admin: 10/25/17 11:09 Dose: 1 cap Ferric Sodium Gluconate Complex (Ferrlecit) 125 mg IVPB DAILY [facility] Stop: 11/01/17 10:01 Last Admin: 10/25/17 10:00 Dose: 125 mg Sodium Chloride (Sodium Chloride 0.9%) 1,000 mls @ 100 mls/hr IV .Q10H [facility] Last Admin: 10/25/17 06:32 Dose: 100 mls/hr Ceftriaxone Sodium 1 gm/ (Sodium Chloride) 100 mls @ 100 mls/hr IVPB DAILY [facility] PRN Reason: Protocol Last Admin: 10/25/17 10:00 Dose: 100 mls/hr Vancomycin/Sodium Chloride (Vancomycin 1 Gm/Ns 200 Ml) 1 gm in 200 mls @ 166.7 mls/hr IVPB Q24H [facility] PRN Reason: Protocol Stop: 10/29/17 18:01 Last Admin: 10/24/17 20:35 Dose: 166.7 mls/hr Oxycodone/Acetaminophen (Percocet 5/325 Mg Tab) 1 tab PO Q4H PRN PRN Reason: PCEA Breakthrough Pain Stop: 10/26/17 23:14 Last Admin: 10/25/17 10:26 Dose: 1 tab Pneumococcal Polyvalent Vaccine (Pneumovax 23 Vaccine) 0.5 ml IM .ONCE ONE Stop: 10/25/17 14:01 - Labs Labs: 10/25/17 08:12 10/25/17 08:12 PT 14.2 SECONDS (9.7-12.2) H 10/23/17 19:54 INR 1.3 10/23/17 19:54 APTT 30 SECONDS (21-34) 10/23/17 19:54 - Extremities Exam Additional comments: Right hip dressing change: dry today. No active drainage noted. Unable to express any bloody discharge from wound today. Thigh less swollen, no palpable fluctuance, still complaining of right hip pain with movement. Calves soft NT neg homans +ROM ankle/toes, sensation itnact +DPPT pulses Assessment and Plan (1) Status post total hip replacement, right Assessment & Plan: s/p right total hip replacement for femoral neck fracture on 10/14/17 cloudy bloody drainage has stopped at this time continue betadine wet to dry dressing changes daily PT/OT VTE proph no active bleed in right hip suspected clinically wound cx from expressed fluid x 2 prelim gram +cocci and gram neg rods ID consult appreciated, continue IV antibiotics, for PICC line, will follow at this time d/w Dr. Luna, covering for Dr. Metcalf at this time, agrees with above Status: Acute <Bridger Turner S - Last Filed: 10/27/17 12:13> Objective - Vital Signs/Intake and Output Vital Signs (last 24 hours): Temp Pulse Resp BP Pulse Ox 99.0 F 65 20 102/49 L 96 10/27/17 08:24 10/27/17 08:24 10/27/17 08:24 10/27/17 08:24 10/27/17 08:24 Intake and Output: 10/27/17 10/27/17 06:59 18:59 Intake Total 100 Output Total 1100 Balance -1000 - Medications Medications: Current Medications Acetaminophen (Tylenol 325mg Tab) 650 mg PO Q4 PRN PRN Reason: Fever >100.4 F Carbidopa/Levodopa (Sinemet) 1 tab PO TID [facility] Last Admin: 10/27/17 10:50 Dose: 1 tab Docusate Sodium (Colace) 100 mg PO BID [facility] Last Admin: 10/27/17 10:49 Dose: 100 mg Enoxaparin Sodium (Lovenox) 40 mg SC DAILY [facility] Last Admin: 10/27/17 10:40 Dose: Not Given Ergocalciferol (Drisdol 50,000 Intl Units Cap) 1 cap PO Q7D [facility] Last Admin: 10/25/17 11:09 Dose: 1 cap Ferric Sodium Gluconate Complex (Ferrlecit) 125 mg IVPB DAILY [facility] Stop: 11/01/17 10:01 Last Admin: 10/26/17 09:30 Dose: 125 mg Ceftriaxone Sodium 1 gm/ (Sodium Chloride) 100 mls @ 100 mls/hr IVPB DAILY [facility] PRN Reason: Protocol Last Admin: 10/27/17 10:05 Dose: 100 mls/hr Vancomycin/Sodium Chloride (Vancomycin 1 Gm/Ns 200 Ml) 1 gm in 200 mls @ 166.7 mls/hr IVPB Q24H [facility] PRN Reason: Protocol Stop: 10/29/17 18:01 Last Admin: 10/26/17 17:50 Dose: 166.7 mls/hr - Labs Labs: 10/27/17 07:11 10/27/17 07:11 PT 13.9 SECONDS (9.7-12.2) H 10/27/17 07:11 INR 1.2 10/27/17 07:11 APTT 33 SECONDS (21-34) 10/27/17 07:11 Assessment and Plan - Assessment and Plan (Free Text) Assessment: Pt seen and examined 10/25/17. R hip wound with no drainage seen today, c/d/i. painless range of motion. 72 yo Male, multiple PMH. s/p R hip CHARISSA 10/14/17 reports of bloody drainage from wound at intermediate from primary team and ER staff but no documentation from MI here for review. AVSS today. Cultures taken previously are from superficial wound, no clinical decision can be made from + cultures from skin basically. There is no procedure note to describe how this specimen was obtained. I have communicated to the operating surgeon, Dr. Huerta, he will evaluate the patient on Saturday10/28/17 when he returns himself and decide definitive plan of treatment. Just in case, should be NPO after midnight Saturday and hold DVT proph. In my clinical opinion, the wound looks very benign today, does not look infected. Very appropriate wound for 11 days post-op. In the interim: -continue DVT proph, hold dose 10/27 Lovenox -continue physical therapy, WBAT/ROM/stretch/strength/anterior hip replacement precautions -pain control PRN -can treat + blood cultures -will follow -again, does not appear infected to me, but Dr. Huerta will make final decision , just in case he would like to perform aspiration or other testing, make NPO after midnight Saturday and hold DVT proph starting 10/27/17 Bridger Luna MD [phone]
[2017-10-25] MEDS ORDERED: Pneumococcal 23-Valent Vaccine IM ONE (14:00)
[2017-10-25] MEDS: Vancomycin 1 gm/NS 200 ml 1 GM/200 ML BAG IVPB SCH (17:40)
--- NOTE | 2017-10-25 19:53 | CP.PCM.PN ---
Subjective - Date & Time of Evaluation Date of Evaluation: 10/25/17 Time of Evaluation: 19:53 - Subjective Subjective: CHIEF COMPLAINTS TODAY : TMAX 99.4 BP 104/58 C/O RT HIP PAIN . DENIES SOB/CHEST PAIN ROS. HEENT : N. Resp : No cough, wheezing ,pleuritic CP ,or hemoptysis Cardio : No anginal CP, PND, orthopnea, palpitation GI : No abd.pain, n/v ,diarrhea or GI bleeding . LINE PALLETIZER : No headache, vertigo, focal deficit. Musculoskel : No joint swelling , Derm : No rash Psych : Normal affect. Ext : RT HIP ANT UPPER THIGH DRESSING C/D/I PE. Pt. is alert awake in no distress. V.S As noted in the chart Head ,ear nose,throat and eyes : Normal. Neck : Supple with normal carotids. Lungs: Clear air entry. Heart : S1 & S2 normal with S4. No murmur. Abd : Soft non tender with normal bowel sounds. Neuro : Moves all ext. with no localized deficit. Ext : RT HIP ANT UPPER THIGH DRESSING C/D/I Derm : No rashes or decubitus ulcer. LABS/RADIOLOGY: RT HIPCULTURE 10/24/17 GNR. BLOOD CULTURE 1:2 SETS GPC ASSESSMENT/PLAN : CONTINUE IV ABX. Objective - Vital Signs/Intake and Output Vital Signs (last 24 hours): Temp Pulse Resp BP Pulse Ox 97.7 F 60 20 104/58 L 96 10/25/17 15:54 10/25/17 15:54 10/25/17 15:54 10/25/17 15:54 10/25/17 15:54 - Medications Medications: Current Medications Acetaminophen (Tylenol 325mg Tab) 650 mg PO Q4 PRN PRN Reason: Fever >100.4 F Carbidopa/Levodopa (Sinemet) 1 tab PO TID [facility] Last Admin: 10/25/17 17:40 Dose: 1 tab Docusate Sodium (Colace) 100 mg PO BID [facility] Last Admin: 10/25/17 17:41 Dose: 100 mg Enoxaparin Sodium (Lovenox) 40 mg SC DAILY [facility] Last Admin: 10/25/17 10:14 Dose: 40 mg Ergocalciferol (Drisdol 50,000 Intl Units Cap) 1 cap PO Q7D [facility] Last Admin: 10/25/17 11:09 Dose: 1 cap Ferric Sodium Gluconate Complex (Ferrlecit) 125 mg IVPB DAILY [facility] Stop: 11/01/17 10:01 Last Admin: 10/25/17 10:00 Dose: 125 mg Sodium Chloride (Sodium Chloride 0.9%) 1,000 mls @ 100 mls/hr IV .Q10H [facility] Last Admin: 10/25/17 17:32 Dose: 100 mls/hr Ceftriaxone Sodium 1 gm/ (Sodium Chloride) 100 mls @ 100 mls/hr IVPB DAILY [facility] PRN Reason: Protocol Last Admin: 10/25/17 10:00 Dose: 100 mls/hr Vancomycin/Sodium Chloride (Vancomycin 1 Gm/Ns 200 Ml) 1 gm in 200 mls @ 166.7 mls/hr IVPB Q24H [facility] PRN Reason: Protocol Stop: 10/29/17 18:01 Last Admin: 10/25/17 17:40 Dose: 166.7 mls/hr Oxycodone/Acetaminophen (Percocet 5/325 Mg Tab) 1 tab PO Q4H PRN PRN Reason: PCEA Breakthrough Pain Stop: 10/26/17 23:14 Last Admin: 10/25/17 10:26 Dose: 1 tab - Labs Labs: 10/25/17 08:12 10/25/17 08:12 PT 14.2 SECONDS (9.7-12.2) H 10/23/17 19:54 INR 1.3 10/23/17 19:54 APTT 30 SECONDS (21-34) 10/23/17 19:54 Assessment and Plan (1) Pneumonia Status: Acute (2) Fever Assessment & Plan: ON iv ROCEPHIN 1 GM IVPB QD DAILY.10/24/17. ONIV VANCOMYCIN 1 G ONCE A DAY DAILY 10/24/17. fOLLOW-UP vANCO TROUGH PRIOR TO THE THIRD DOSE AND KEEP BETWEEN 10 AND 20. fOLLOW-UP RENAL FUNCTION iv FLUIDS PER PMD. Status: Acute (3) Hip pain Status: Acute (4) Anemia Status: Acute (5) Fracture of right hip Status: Acute (6) Renal insufficiency Status: Acute
--- NOTE | 2017-10-25 21:38 | CON ---
DATE: HISTORY OF PRESENT ILLNESS: The patient is a 72-year-old male who was admitted to the hospital with fever, hip pain and renal failure. The patient has trouble with the catheter when it was inserted and the urine output 0, adjusting the catheter drained 2000 mL of urine from the bladder. The patient was urinating frequency, urgency and slow stream, was not evaluated by any urologist. Has bilateral swelling of the scrotum. CT scan which was done before on this admission revealed left hydrocele, small right hydrocele, large hernia on the right side. The patient has also anemia, he was transfused and at this stage he is not complaining of any pain. PHYSICAL EXAMINATION: : Revealed abdomen soft. No flank tenderness. No palpable. No suprapubic fullness. Large right inguinal hernia and left hydrocele. Fletcher catheter functioning well. Rectal could not be examined because the patient cannot bend. Urine output clear and sufficient. IMPRESSION: Retention, outlet obstruction, bilateral right inguinal hernia, left hydrocele. PLAN: Do cysto to evaluate obstruction. PSA order and I will follow him. Fabrizio Walsh MD
--- NOTE | 2017-10-25 23:30 | CP.PCM.PN ---
Subjective - Date & Time of Evaluation Date of Evaluation: 10/25/17 Time of Evaluation: 18:00 - Subjective Subjective: Patient seen and examined at bedside. Objective - Vital Signs/Intake and Output Vital Signs (last 24 hours): Temp Pulse Resp BP Pulse Ox 97.7 F 60 20 104/58 L 96 10/25/17 15:54 10/25/17 15:54 10/25/17 15:54 10/25/17 15:54 10/25/17 15:54 Intake and Output: 10/25/17 10/26/17 18:59 06:59 Output Total 850 Balance -850 - Medications Medications: Current Medications Acetaminophen (Tylenol 325mg Tab) 650 mg PO Q4 PRN PRN Reason: Fever >100.4 F Carbidopa/Levodopa (Sinemet) 1 tab PO TID [facility] Last Admin: 10/25/17 17:40 Dose: 1 tab Docusate Sodium (Colace) 100 mg PO BID [facility] Last Admin: 10/25/17 17:41 Dose: 100 mg Enoxaparin Sodium (Lovenox) 40 mg SC DAILY [facility] Last Admin: 10/25/17 10:14 Dose: 40 mg Ergocalciferol (Drisdol 50,000 Intl Units Cap) 1 cap PO Q7D [facility] Last Admin: 10/25/17 11:09 Dose: 1 cap Ferric Sodium Gluconate Complex (Ferrlecit) 125 mg IVPB DAILY [facility] Stop: 11/01/17 10:01 Last Admin: 10/25/17 10:00 Dose: 125 mg Sodium Chloride (Sodium Chloride 0.9%) 1,000 mls @ 100 mls/hr IV .Q10H [facility] Last Admin: 10/25/17 17:32 Dose: 100 mls/hr Ceftriaxone Sodium 1 gm/ (Sodium Chloride) 100 mls @ 100 mls/hr IVPB DAILY [facility] PRN Reason: Protocol Last Admin: 10/25/17 10:00 Dose: 100 mls/hr Vancomycin/Sodium Chloride (Vancomycin 1 Gm/Ns 200 Ml) 1 gm in 200 mls @ 166.7 mls/hr IVPB Q24H [facility] PRN Reason: Protocol Stop: 10/29/17 18:01 Last Admin: 10/25/17 17:40 Dose: 166.7 mls/hr Oxycodone/Acetaminophen (Percocet 5/325 Mg Tab) 1 tab PO Q4H PRN PRN Reason: PCEA Breakthrough Pain Stop: 10/26/17 23:14 Last Admin: 10/25/17 22:38 Dose: 1 tab - Labs Labs: 10/25/17 08:12 10/25/17 08:12 PT 14.2 SECONDS (9.7-12.2) H 10/23/17 19:54 INR 1.3 10/23/17 19:54 APTT 30 SECONDS (21-34) 10/23/17 19:54
[2017-10-26] MEDS: Sodium Chloride 0.9% 1,000 ML IV SCH ×2 (04:15→13:30)
[2017-10-26] MEDS: Ferric Sodium Gluconat Complex 62.5 mg/5 ml Vial IVPB SCH (09:30)
[2017-10-26] MEDS: Enoxaparin 40 mg Syringe SC SCH (09:30)
[2017-10-26] MEDS: Oxycodone/Acetaminophen 5/325 mg Tab PO PRN (09:34)
[2017-10-26] MEDS: Vancomycin 1 gm/NS 200 ml 1 GM/200 ML BAG IVPB SCH (17:50)
--- NOTE | 2017-10-26 18:06 | CP.PCM.PN ---
Subjective - Date & Time of Evaluation Date of Evaluation: 10/26/17 Time of Evaluation: 18:00 - Subjective Subjective: Pt seen and examined, afebrile, is feeling better Objective - Vital Signs/Intake and Output Vital Signs (last 24 hours): Temp Pulse Resp BP Pulse Ox 98.0 F 60 18 96/59 L 99 10/26/17 15:25 10/26/17 15:25 10/26/17 15:25 10/26/17 15:25 10/26/17 15:25 Intake and Output: 10/26/17 10/26/17 06:59 18:59 Intake Total 2100 Output Total 1400 Balance 700 - Medications Medications: Current Medications Acetaminophen (Tylenol 325mg Tab) 650 mg PO Q4 PRN PRN Reason: Fever >100.4 F Carbidopa/Levodopa (Sinemet) 1 tab PO TID [facility] Last Admin: 10/26/17 17:49 Dose: 1 tab Docusate Sodium (Colace) 100 mg PO BID [facility] Last Admin: 10/26/17 17:49 Dose: 100 mg Enoxaparin Sodium (Lovenox) 40 mg SC DAILY [facility] Last Admin: 10/26/17 09:30 Dose: 40 mg Ergocalciferol (Drisdol 50,000 Intl Units Cap) 1 cap PO Q7D [facility] Last Admin: 10/25/17 11:09 Dose: 1 cap Ferric Sodium Gluconate Complex (Ferrlecit) 125 mg IVPB DAILY [facility] Stop: 11/01/17 10:01 Last Admin: 10/26/17 09:30 Dose: 125 mg Ceftriaxone Sodium 1 gm/ (Sodium Chloride) 100 mls @ 100 mls/hr IVPB DAILY [facility] PRN Reason: Protocol Last Admin: 10/26/17 10:00 Dose: 100 mls/hr Vancomycin/Sodium Chloride (Vancomycin 1 Gm/Ns 200 Ml) 1 gm in 200 mls @ 166.7 mls/hr IVPB Q24H [facility] PRN Reason: Protocol Stop: 10/29/17 18:01 Last Admin: 10/26/17 17:50 Dose: 166.7 mls/hr Oxycodone/Acetaminophen (Percocet 5/325 Mg Tab) 1 tab PO Q4H PRN PRN Reason: PCEA Breakthrough Pain Stop: 10/26/17 23:14 Last Admin: 10/26/17 09:34 Dose: 1 tab - Labs Labs: 10/25/17 08:12 10/25/17 08:12 PT 14.2 SECONDS (9.7-12.2) H 10/23/17 19:54 INR 1.3 10/23/17 19:54 APTT 30 SECONDS (21-34) 10/23/17 19:54
[2017-10-26] MEDS ORDERED: Oxycodone/Acetaminophen 5/325 mg Tab PO ONE (23:53)
--- NOTE | 2017-10-26 23:53 | CP.PCM.PN ---
Subjective - Date & Time of Evaluation Date of Evaluation: 10/26/17 Time of Evaluation: 23:53 - Subjective Subjective: CHIEF COMPLAINTS TODAY : AFEBRILE BP 104/58 C/O RT HIP PAIN . DENIES SOB/CHEST PAIN ROS. HEENT : N. Resp : No cough, wheezing ,pleuritic CP ,or hemoptysis Cardio : No anginal CP, PND, orthopnea, palpitation GI : No abd.pain, n/v ,diarrhea or GI bleeding . TEST DECK SUPERVISOR : No headache, vertigo, focal deficit. Musculoskel : No joint swelling , Derm : No rash Psych : Normal affect. Ext : RT HIP ANT UPPER THIGH DRESSING C/D/I PE. Pt. is alert awake in no distress. V.S As noted in the chart Head ,ear nose,throat and eyes : Normal. Neck : Supple with normal carotids. Lungs: Clear air entry. Heart : S1 & S2 normal with S4. No murmur. Abd : Soft non tender with normal bowel sounds. Neuro : Moves all ext. with no localized deficit. Ext : RT HIP ANT UPPER THIGH DRESSING C/D/I Derm : No rashes or decubitus ulcer. LABS/RADIOLOGY: RT HIPCULTURE 10/24/17 E.COLI BLOOD CULTURE 1:2 SETS GPC ASSESSMENT/PLAN : CONTINUE IV ABX. Objective - Vital Signs/Intake and Output Vital Signs (last 24 hours): Temp Pulse Resp BP Pulse Ox 98.0 F 59 L 18 96/59 L 99 10/26/17 15:25 10/26/17 17:30 10/26/17 15:25 10/26/17 15:25 10/26/17 15:25 Intake and Output: 10/26/17 10/27/17 18:59 06:59 Output Total 500 Balance -500 - Medications Medications: Current Medications Acetaminophen (Tylenol 325mg Tab) 650 mg PO Q4 PRN PRN Reason: Fever >100.4 F Carbidopa/Levodopa (Sinemet) 1 tab PO TID [facility] Last Admin: 10/26/17 17:49 Dose: 1 tab Docusate Sodium (Colace) 100 mg PO BID [facility] Last Admin: 10/26/17 17:49 Dose: 100 mg Enoxaparin Sodium (Lovenox) 40 mg SC DAILY [facility] Last Admin: 10/26/17 09:30 Dose: 40 mg Ergocalciferol (Drisdol 50,000 Intl Units Cap) 1 cap PO Q7D [facility] Last Admin: 10/25/17 11:09 Dose: 1 cap Ferric Sodium Gluconate Complex (Ferrlecit) 125 mg IVPB DAILY [facility] Stop: 11/01/17 10:01 Last Admin: 10/26/17 09:30 Dose: 125 mg Ceftriaxone Sodium 1 gm/ (Sodium Chloride) 100 mls @ 100 mls/hr IVPB DAILY [facility] PRN Reason: Protocol Last Admin: 10/26/17 10:00 Dose: 100 mls/hr Vancomycin/Sodium Chloride (Vancomycin 1 Gm/Ns 200 Ml) 1 gm in 200 mls @ 166.7 mls/hr IVPB Q24H [facility] PRN Reason: Protocol Stop: 10/29/17 18:01 Last Admin: 10/26/17 17:50 Dose: 166.7 mls/hr - Labs Labs: 10/25/17 08:12 10/25/17 08:12 PT 14.2 SECONDS (9.7-12.2) H 10/23/17 19:54 INR 1.3 10/23/17 19:54 APTT 30 SECONDS (21-34) 10/23/17 19:54 Assessment and Plan (1) Pneumonia Status: Acute (2) Fever Status: Acute (3) Hip pain Status: Acute (4) Anemia Status: Acute (5) Fracture of right hip Status: Acute (6) Renal insufficiency Status: Acute
[2017-10-27 07:23] LABS: BASO % 0.4 % (0.0-2.0); EOS # 0.2 K/uL (0.0-0.7); HEMOGLOBIN 9.5 g/dL (12.0-18.0); LYMPH # 0.6 K/uL (1.0-4.3); LYMPH % 9.6 % (20.0-40.0); MEAN CELL VOLUME 92.7 fL (80.0-94.0); MEAN CORPUSCULAR HEMOGLOBIN 31.8 pg (27.0-31.0); MEAN CORPUSCULAR HGB CONC 34.3 g/dL (33.0-37.0); MEAN PLATELET VOLUME 7.7 fL (7.2-11.7); MONO # 0.5 K/uL (0.0-0.8); MONO % 7.7 % (0.0-10.0); NEUT # 5.3 K/uL (1.8-7.0); NEUT % 79.3 % (50.0-75.0); PLATELET COUNT 383 K/uL (130-400); RED CELL DISTRIBUTION WIDTH 14.6 % (11.5-14.5); WHITE BLOOD COUNT 6.6 K/uL (4.8-10.8)
[2017-10-27 07:43] LABS: BLOOD UREA NITROGEN 12 mg/dL (9-20); CALCIUM 7.7 mg/dl (8.6-10.4); GFR AFRICAN-AMERICAN > 60; GFR NON-AFRICAN AMERICAN > 60
[2017-10-27 07:55] LABS: INR 1.2; PROTHROMBIN TIME 13.9 SECONDS (9.7-12.2)
--- NOTE | 2017-10-27 10:02 | CP.PCM.CON ---
History of Present Illness - History of Present Illness History of Present Illness: ID: 72 yo male CC- Drainage R Hip 2 - 3wks s/p successful R THR for displaced subcpital hip fx withpreeisting osteoarthrosis HPI_ - Pt presented to [facility] 10/23 ER with bloody drainage from R hip wound proximally. Pt had successful THR R hip for fx and was d/hipolito from hospital with a benign ppost op course, little pain and dry wound. Pt consulted by SALINA on HD#1. UNFORTUNATELY, CULTURES OBTAINED IN ER ARE NOT HELPFUL , since improper techniwue had been employed. the skin was essentially culktured along with bloody drainage. Therefore, no reasonab;le decisiomns may be made on basis of cultures. PA's notes read and appreciated. Pt seen today with essentially PAINLESS wound with perisistent essentilally serous drainage from the R hip Past Patient History - Past Medical History & Family History Past Medical History?: Yes Past Family History: Reviewed and not pertinent - Past Social History Smoking Status: Former Smoker Alcohol: None Drugs: Denies - CARDIAC Hx Cardiac Disorders: No - PULMONARY Hx Respiratory Disorders: No - NEUROLOGICAL Hx Neurological Disorder: Yes Hx Parkinson's Disease: Yes - HEENT Hx HEENT Problems: No - RENAL Hx Chronic Kidney Disease: No - ENDOCRINE/METABOLIC Hx Endocrine Disorders: No - HEMATOLOGICAL/ONCOLOGICAL Hx Blood Disorders: No - INTEGUMENTARY Hx Dermatological Problems: No - MUSCULOSKELETAL/RHEUMATOLOGICAL Hx Musculoskeletal Disorders: Yes Hx Falls: Yes Hx Fractures: Yes (right hip) - GASTROINTESTINAL Hx Gastrointestinal Disorders: No - GENITOURINARY/GYNECOLOGICAL Hx Genitourinary Disorders: No - PSYCHIATRIC Hx Psychophysiologic Disorder: No Hx Substance Use: No - SURGICAL HISTORY Hx Surgeries: Yes Hx Orthopedic Surgery: Yes (RT HIP fX) - ANESTHESIA Hx Anesthesia: Yes Hx Anesthesia Reactions: No Hx Malignant Hyperthermia: No Has any member of the family had a problem w/ anesthesia?: No Meds Allergies/Adverse Reactions: Allergies Allergy/AdvReac Type Severity Reaction Status Date / Time milk Allergy DIARRHEA Verified 10/23/17 18:56 Milk Containing Products Allergy DIARRHEA Verified 10/23/17 18:56 - Medications Medications: Current Medications Acetaminophen (Tylenol 325mg Tab) 650 mg PO Q4 PRN PRN Reason: Fever >100.4 F Carbidopa/Levodopa (Sinemet) 1 tab PO TID [facility] Last Admin: 04/21/18 17:49 Dose: 1 tab Docusate Sodium (Colace) 100 mg PO BID [facility] Last Admin: 10/26/17 17:49 Dose: 100 mg Enoxaparin Sodium (Lovenox) 40 mg SC DAILY [facility] Last Admin: 10/26/17 09:30 Dose: 40 mg Ergocalciferol (Drisdol 50,000 Intl Units Cap) 1 cap PO Q7D [facility] Last Admin: 10/25/17 11:09 Dose: 1 cap Ferric Sodium Gluconate Complex (Ferrlecit) 125 mg IVPB DAILY [facility] Stop: 11/01/17 10:01 Last Admin: 10/26/17 09:30 Dose: 125 mg Ceftriaxone Sodium 1 gm/ (Sodium Chloride) 100 mls @ 100 mls/hr IVPB DAILY [facility] PRN Reason: Protocol Last Admin: 10/26/17 10:00 Dose: 100 mls/hr Vancomycin/Sodium Chloride (Vancomycin 1 Gm/Ns 200 Ml) 1 gm in 200 mls @ 166.7 mls/hr IVPB Q24H [facility] PRN Reason: Protocol Stop: 10/29/17 18:01 Last Admin: 10/26/17 17:50 Dose: 166.7 mls/hr Physical Exam - Additional Findings Additional findings: Physical Exam systemic exam temp = 99 only definable temp spike was in ER 10/23; temp has centered arpound 98 since, this am=99 systemic exam- No evidence for systemic sepsis pt jhas Fletcher indwelling, 2nd to ;large prostrate- case discussed with Dr Davis urology Musculoskeletal stance/gait- defrred dressing changed- wound reveals essentially serous drainage form proximal aspect NO EVIDENCE FOR DEEP SEPSIS NO MARKED PAIN ON FLEION, INTERNAL, EXTERNAL ROATATION r HIP /n/v INTACT nO PURULENT DRAINAGE/ MINIMAL BLOOD IN DRAINAGE r HIP Results - Vital Signs Recent Vital Signs: Last Vital Signs Temp 99.0 F 10/27/17 08:24 Pulse 65 10/27/17 08:24 Resp 20 10/27/17 08:24 BP 102/49 L 10/27/17 08:24 Pulse Ox 96 10/27/17 08:24 - Labs Result Diagrams: 10/27/17 07:11 10/27/17 07:11 Labs: Laboratory Results - last 24 hr 10/27/17 10/27/17 10/27/17 07:11 07:11 07:11 WBC 6.6 RBC 3.00 L Hgb 9.5 L Hct 27.8 L MCV 92.7 MCH 31.8 H MCHC 34.3 RDW 14.6 H Plt Count 383 MPV 7.7 Neut % (Auto) 79.3 H Lymph % (Auto) 9.6 L [place] % (Auto) 7.7 Eos % (Auto) 3.0 Baso % (Auto) 0.4 Neut # (Auto) 5.3 Lymph # (Auto) 0.6 L [place] # (Auto) 0.5 Eos # (Auto) 0.2 Baso # (Auto) 0.0 PT 13.9 H INR 1.2 APTT 33 Sodium 135 Potassium 3.7 Chloride 101 Carbon Dioxide 26 Anion Gap 12 BUN 12 Creatinine 0.6 L Est GFR ( Amer) > 60 Est GFR (Non-Af Amer) > 60 Random Glucose 81 Calcium 7.7 L - Impressions Impression: xRAY- ACCEPTABLE POSIITON OF CONSTRUCT- NO EVIDENCE FOR LOOSENING; no evidence for osteomyelitis Assessment & Plan - Assessment and Plan (Free Text) Assessment: A- superficial serosanguinous drainage fro m R hip no evdience for purulence P- to OR for I+D/possible comonent exchange possible inertion of abio impreganted beads Dr Brii Dong consult noted; although there is no cynthia sepsis in my opinion, more accurate culuters will be obtained at surgery; initial ER cultures unfortunately cannot be respected in the overal microbiological care of this pt Plan: P- to OR 10/28 for I+D- possible co mponent exchange/prophylactic insetion of abio beads consent obtained pros/cons/ risk sand benfits discussed at length possibility of secondayr, or evn tetiaruy surgery discussed NO PROMISES/Guarantees
[2017-10-27] MEDS: Enoxaparin 40 mg Syringe SC SCH (10:40)
[2017-10-27 11:21] LABS: BANDS 2 % (0-2); EOSINOPHIL 1 % (0-4); LYMPHOCYTE 9 % (20-40); MONOCYTE 5 % (0-10); NEUTROPHIL 83 % (50-75); PLATELET ESTIMATE NORMAL (NORMAL); TOTAL CELLS COUNTED 100
[2017-10-27 11:22] LABS: ANISOCYTOSIS SLIGHT; HYPOCHROMIC SLIGHT; POLYCHROMIC SLIGHT
[2017-10-27 11:28] LABS: GIANT PLATELETS PRESENT; LARGE PLATELETS PRESENT
[2017-10-27 11:31] LABS: TOXIC GRANULATION PRESENT
[2017-10-27] MEDS: Ferric Sodium Gluconat Complex 62.5 mg/5 ml Vial IVPB SCH (12:00)
--- NOTE | 2017-10-27 12:16 | CP.PCM.CON ---
History of Present Illness - History of Present Illness History of Present Illness: Patient is a 72 y/o male with multiple PMH including Parkinson's disease admitted for fever and L hip bloody drainage 10/23/17 through ER. Patient is s/p R anterior CHARISSA performed on 10/14/[address] Metcalf. His postoperative course was uneventful and was discharged to rehab stable. Patient noticed bloody discharge from the surgical wound 10/22/17 which prompted his transfer to the hospital, cam to the ER at on 10/23/17. Admitted to the medical service under Dr. Keon Rodriguez. He was evaluated by the Ortho PA's 10/24/17. At some point, wound cultures were sent to the microbiology lab, labelled R hip. It is unclear where the specimen for culture labelled wound specimen from R hip came from, there is no procedure note and as the orthopedic attending director of graduate admissions covering for Dr. Huerta, I was never contacted about sending wound cultures. A specimen taken from skin laura is extremely unreliable and can only be interpreted as contamination at this point. Even if there is a small opening in the wound and superficial hematoma was expressed, it is exposed to skin laura while being obtained and holds little true clinical value. the wound cultures grew Gram (-) rods that are labeled R hip. there are also (+) blood cultures growing Gram (+) cocci. ID consult has been placed and IV antibiotics have been started. Currently, he denies any worsening of his pain since the time of the procedure. The pain is well controlled with pain meds and states that he is tolerating PT well. He denies radiation of pain, numbness or tingling. He denies DP/SOB/N/V/D/JAMES/ dysuria/melena. Today, no fevers or chills. Past Patient History - Past Medical History & Family History Past Medical History?: Yes Past Family History: Reviewed and not pertinent - Past Social History Smoking Status: Former Smoker Alcohol: None Drugs: Denies - CARDIAC Hx Cardiac Disorders: No - PULMONARY Hx Respiratory Disorders: No - NEUROLOGICAL Hx Neurological Disorder: Yes Hx Parkinson's Disease: Yes - HEENT Hx HEENT Problems: No - RENAL Hx Chronic Kidney Disease: No - ENDOCRINE/METABOLIC Hx Endocrine Disorders: No - HEMATOLOGICAL/ONCOLOGICAL Hx Blood Disorders: No - INTEGUMENTARY Hx Dermatological Problems: No - MUSCULOSKELETAL/RHEUMATOLOGICAL Hx Musculoskeletal Disorders: Yes Hx Falls: Yes Hx Fractures: Yes (right hip) - GASTROINTESTINAL Hx Gastrointestinal Disorders: No - GENITOURINARY/GYNECOLOGICAL Hx Genitourinary Disorders: No - PSYCHIATRIC Hx Psychophysiologic Disorder: No Hx Substance Use: No - SURGICAL HISTORY Hx Surgeries: Yes Hx Orthopedic Surgery: Yes (RT HIP fX) - ANESTHESIA Hx Anesthesia: Yes Hx Anesthesia Reactions: No Hx Malignant Hyperthermia: No Has any member of the family had a problem w/ anesthesia?: No Meds Allergies/Adverse Reactions: Allergies Allergy/AdvReac Type Severity Reaction Status Date / Time milk Allergy DIARRHEA Verified 10/23/17 18:56 Milk Containing Products Allergy DIARRHEA Verified 10/23/17 18:56 - Medications Medications: Current Medications Acetaminophen (Tylenol 325mg Tab) 650 mg PO Q4 PRN PRN Reason: Fever >100.4 F Carbidopa/Levodopa (Sinemet) 1 tab PO TID [facility] Last Admin: 10/27/17 10:50 Dose: 1 tab Docusate Sodium (Colace) 100 mg PO BID [facility] Last Admin: 10/27/17 10:49 Dose: 100 mg Enoxaparin Sodium (Lovenox) 40 mg SC DAILY [facility] Last Admin: 10/27/17 10:40 Dose: Not Given Ergocalciferol (Drisdol 50,000 Intl Units Cap) 1 cap PO Q7D [facility] Last Admin: 10/25/17 11:09 Dose: 1 cap Ferric Sodium Gluconate Complex (Ferrlecit) 125 mg IVPB DAILY [facility] Stop: 11/01/17 10:01 Last Admin: 10/26/17 09:30 Dose: 125 mg Ceftriaxone Sodium 1 gm/ (Sodium Chloride) 100 mls @ 100 mls/hr IVPB DAILY [facility] PRN Reason: Protocol Last Admin: 10/27/17 10:05 Dose: 100 mls/hr Vancomycin/Sodium Chloride (Vancomycin 1 Gm/Ns 200 Ml) 1 gm in 200 mls @ 166.7 mls/hr IVPB Q24H [facility] PRN Reason: Protocol Stop: 10/29/17 18:01 Last Admin: 10/26/17 17:50 Dose: 166.7 mls/hr Physical Exam - Extremities Exam Additional comments: Right Lower Extremity: anterior hip wound c/d/i, no visible dehesince or hematoma, wound is dry, no discharge or drainage, wet to dry iodine dressing in place. only at the wound edges is there a tiny area of eschar formation, otherwise normal wound no swelling/warmth/redness, no fluctuance, ROM at hip and all other joints w/o pain, - ttp + 5/5 strength hip flex/ext, knee flex/ext, ankle df/pf, toes up & down sensory intact L2-S1, DPN/TN/SPN 2+ DP, all toes Left Lower Extremity: -ttp, - swelling/warmth/redness, Full ROM at all joints w /o pain, - instability + 5/5 strength hip flex/ext, knee flex/ext, ankle df/pf, toes up & down sensory intact L2-S1, DPN/TN/SPN 2+ DP, all toes Results - Vital Signs Recent Vital Signs: Last Vital Signs Temp 99.0 F 10/27/17 08:24 Pulse 65 10/27/17 08:24 Resp 20 10/27/17 08:24 BP 102/49 L 10/27/17 08:24 Pulse Ox 96 10/27/17 08:24 - Labs Result Diagrams: 10/27/17 07:11 10/27/17 07:11 Labs: Laboratory Results - last 24 hr 10/27/17 10/27/17 10/27/17 07:11 07:11 07:11 WBC 6.6 RBC 3.00 L Hgb 9.5 L Hct 27.8 L MCV 92.7 MCH 31.8 H MCHC 34.3 RDW 14.6 H Plt Count 383 MPV 7.7 Neut % (Auto) 79.3 H Lymph % (Auto) 9.6 L Morton % (Auto) 7.7 Eos % (Auto) 3.0 Baso % (Auto) 0.4 Neut # (Auto) 5.3 Lymph # (Auto) 0.6 L Morton # (Auto) 0.5 Eos # (Auto) 0.2 Baso # (Auto) 0.0 Neutrophils % (Manual) 83 H Band Neutrophils % 2 Lymphocytes % (Manual) 9 L Monocytes % (Manual) 5 Eosinophils % (Manual) 1 Toxic Granulation Present Platelet Estimate Normal Large Platelets Present Giant Platelets Present Polychromasia Slight Hypochromasia (manual) Slight Anisocytosis (manual) Slight PT 13.9 H INR 1.2 APTT 33 Sodium 135 Potassium 3.7 Chloride 101 Carbon Dioxide 26 Anion Gap 12 BUN 12 Creatinine 0.6 L Est GFR ( Amer) > 60 Est GFR (Non-Af Amer) > 60 Random Glucose 81 Calcium 7.7 L Assessment & Plan (1) Status post total hip replacement, right Assessment and Plan: 72 yo male with multiple PMH presented to the ER at on 10/09/17 with R hip pain after fall, Dx= R hip displaced femoral neck fracture admitted to , underwent R hip total hip arthroplasty by Dr. Huerta 10/14/17 post-op course uneventful, dc/tranfered to [facility] / [place] 10/15[place]17 Re-admitted at 10/22/17 for minor R hip wound drainage, [facility] He was evaluated by the Ortho PA's 10/24/17. At some point, wound cultures were sent to the microbiology lab, labelled R hip. It is unclear where the specimen for culture labelled wound specimen from R hip came from, there is no procedure note and as the orthopedic attending director of graduate admissions covering for Dr. Huerta, I was never contacted about sending wound cultures. A specimen taken from skin laura is extremely unreliable and can only be interpreted as contamination at this point. Even if there is a small opening in the wound and superficial hematoma was expressed, it is exposed to skin laura while being obtained and holds little true clinical value. the wound cultures grew Gram (-) rods that are labeled R hip. there are also (+) blood cultures growing Gram (+) cocci. ID consult has been placed and IV antibiotics have been started. Currently, he denies any worsening of his pain since the time of the procedure. The pain is well controlled with pain meds and states that he is tolerating PT well. (+) cultures from skin at wound for R hip, + gram (-) rods (+) blood cultures, (+) gram + cocci PLAN: R hip: -clinically, the wound looks dry/clean/intact, no obvious infectious process seen, painless range of motion, pt happy with progress since surgery for displaced femoarl neck fracture 10/14/17 -personally, I don't see any sings of infection today, the wound is clean, dry, intact there is only a tiny area of eschar formation at the wound edges but NO FLUID DRAINAGE EXPRESSED OR SEEN., no redness or fluctuance to indicate collection or infection/hematoma. -then there is the question of the cultures labelled as coming from the R hip, being there is no procedure note, I cannot comment on how or where the specimen came from. Assuming a hematoma was expressed from the wound's superficial layer and obtained as it exited the wound as a specimen, it would have been exposed to the surrounding skin laura and considered contaminated. It is very difficult to give this wound culture any validity or weight in forming a definitive plan for this pt. -I have communicated the case with Dr. Huerta and he is aware of the pt, I am covering from him this week. -There is no indication for emergent orthopedic surgery at this point in time. We will monitor his progress until Dr. Huerta can evaluate the pt himself. -Dr. Huerta will evaluate the pt on Saturday and determine the best course of action at that point based on clinical presentation, possible aspiration or I&D , possible continuation of conservative tx. In the interim: -continue ID recs, treat (+) blood cultures -continue DVT proph, hold Sundays dose for possible OR Saturday after Dr. Smart evaluation. -continue physical therapy, WBAT/ ROM/stretch/strength, anterior hip precautions -NPO after midnight Saturday for possible OR Saturday am -OOB as much as possible -please contact me with any questions, concerns, updates at [phone] Thank you for allowing me to contribute to the care of your patient. Bridger Luna MD Orthopedic Surgery Status: Acute
[2017-10-27] MEDS: Vancomycin 1 gm/NS 200 ml 1 GM/200 ML BAG IVPB SCH (17:35)
[2017-10-27] MEDS ORDERED: Oxycodone/Acetaminophen 5/325 mg Tab PO ONE (22:43)
--- NOTE | 2017-10-27 23:31 | CP.PCM.PN ---
Subjective - Date & Time of Evaluation Date of Evaluation: 10/27/17 Time of Evaluation: 18:00 - Subjective Subjective: Pt is seen and examined today during rounds Objective - Vital Signs/Intake and Output Vital Signs (last 24 hours): Temp Pulse Resp BP Pulse Ox 98.4 F 63 20 93/54 L 96 10/27/17 15:15 10/27/17 17:30 10/27/17 15:15 10/27/17 15:15 10/27/17 15:15 Intake and Output: 10/27/17 10/28/17 18:59 06:59 Intake Total 360 Output Total 650 600 Balance -290 -600 - Medications Medications: Current Medications Acetaminophen (Tylenol 325mg Tab) 650 mg PO Q4 PRN PRN Reason: Fever >100.4 F Carbidopa/Levodopa (Sinemet) 1 tab PO TID [facility] Last Admin: 10/27/17 17:32 Dose: 1 tab Docusate Sodium (Colace) 100 mg PO BID [facility] Last Admin: 10/27/17 17:32 Dose: 100 mg Ergocalciferol (Drisdol 50,000 Intl Units Cap) 1 cap PO Q7D [facility] Last Admin: 10/25/17 11:09 Dose: 1 cap Ferric Sodium Gluconate Complex (Ferrlecit) 125 mg IVPB DAILY [facility] Stop: 11/01/17 10:01 Last Admin: 10/27/17 12:00 Dose: 125 mg Ceftriaxone Sodium 1 gm/ (Sodium Chloride) 100 mls @ 100 mls/hr IVPB DAILY [facility] PRN Reason: Protocol Vancomycin/Sodium Chloride (Vancomycin 1 Gm/Ns 200 Ml) 1 gm in 200 mls @ 166.7 mls/hr IVPB Q24H [facility] PRN Reason: Protocol Stop: 11/02/17 18:01 - Labs Labs: 10/27/17 07:11 10/27/17 07:11 PT 13.9 SECONDS (9.7-12.2) H 10/27/17 07:11 INR 1.2 10/27/17 07:11 APTT 33 SECONDS (21-34) 10/27/17 07:11
[2017-10-28] MEDS: Ferric Sodium Gluconat Complex 62.5 mg/5 ml Vial IVPB SCH (12:06)
[2017-10-28] MEDS ORDERED: Bacitracin 150,000 UNIT in Sodium Chloride 0.9% Irrig 3,000 ML IR SCH ×2 (14:47→17:15)
[2017-10-28] MEDS ORDERED: Propofol 10 mg/ml Inj (20 ML) ONE (15:42)
[2017-10-28] MEDS ORDERED: ceFAZolin 1 gm in NS 0 GM/0 ML BAG IVPB ONE (15:49)
[2017-10-28] MEDS ORDERED: Succinylcholine Chloride 20 mg/ml Syr (5 ml) IV ONE (17:05)
[2017-10-28] MEDS ORDERED: Rocuronium 10 mg/ml (5 ml) ONE (17:07)
[2017-10-28] MEDS ORDERED: Tobramycin 1.2 gm Inj ONE (17:28)
[2017-10-28 17:39] LABS: FLUID TYPE SYNOVIAL FLUID
[2017-10-28 18:05] LABS: SF GROSS APPEARANCE BLOODY (CLEAR)
[2017-10-28 18:18] LABS: SYNOVIAL FLUID MONO/MACROPHAGE 1 % (0-0)
--- NOTE | 2017-10-28 18:25 | PCM.SURG1 ---
Surgeon's Initial Post Op Note - Surgeon's Notes Surgeon: Tea Servicer [employer]: AAKASH Ceja/ 2nd assist Rashi Cherry PA-C Type of Anesthesia: General Endo, Spinal Anesthesia Administered By: DR Curtis Brennan Pre-Operative Diagnosis: R/O septic R THR Operative Findings: drainage from R hip wound. heterotopic ossification Post-Operative Diagnosis: R/O Septic R THR. heterotopic ossification Operation Performed: Revision R THR- component exchange- acetabulum/ femoral head. insertion abio impregnated pellets. excision heterotopic ossification. excision skin/subcutaneous tissue/muscle Specimen/Specimens Removed: acetabular component(dual mobi;lity outer bearing)/ femoral head Estimated Blood Loss: EBL {In ML}: 125 Blood Products Given: N/A Drains Used: Wound Vac Post-Op Condition: Fair Date of Surgery/Procedure: 10/28/17 Time of Surgery/Procedure: 16:45 (time in room: 1555/anetshesoia indcution time 15:55)
[2017-10-28] MEDS ORDERED: Neostigmine Methylsulfate 3mg/3ml Syringe IV ONE (18:31)
[2017-10-28] MEDS ORDERED: Lactated Ringer's 1,000 ML IV ONE ×2 (18:49→20:00)
[2017-10-28] MEDS ORDERED: HYDROmorphone 0.5 mg/0.5 ml ISec IVP PRN (18:50)
[2017-10-28] MEDS ORDERED: ceFAZolin IV 2 gm in Dextrose 50 ML IVPB SCH (19:00)
[2017-10-28] MEDS ORDERED: HYDROmorphone 1 mg/ml ISec IVP PRN (19:13)
[2017-10-28] MEDS ORDERED: HYDROmorphone 0.5 mg/0.5 ml ISec IVP ONE (19:25)
[2017-10-28] MEDS: Lactated Ringer's 1,000 ML IV SCH (20:15)
[2017-10-28] MEDS: Oxycodone/Acetaminophen 5/325 mg Tab PO PRN (20:23)
[2017-10-28] MEDS: Vancomycin 1 gm/NS 200 ml 1 GM/200 ML BAG IVPB SCH (20:24)
[2017-10-28 20:25] LABS: FLUID TYPE SYNOVIAL FLUID; SF GROSS APPEARANCE BLOODY (CLEAR)
[2017-10-28 22:04] LABS: SYNOVIAL FLUID MONO/MACROPHAGE 2 % (0-0)
--- NOTE | 2017-10-28 23:24 | CP.PCM.PN ---
Subjective - Date & Time of Evaluation Date of Evaluation: 10/28/17 Time of Evaluation: 23:23 - Subjective Subjective: CHIEF COMPLAINTS TODAY : PT SEEN IN RECOVERY ROOM DROWSY VSS S/P OR 10/28/17 Operative Findings: drainage from R hip wound. heterotopic ossification Post-Operative Diagnosis: R/O Septic R THR. heterotopic ossification Operation Performed: Revision R THR- component exchange- acetabulum/ femoral head. insertion abio impregnated pellets. excision heterotopic ossification. excision skin/subcutaneous tissue/muscle Specimen/Specimens Removed: acetabular component(dual mobi;lity outer bearing)/ femoral head Estimated Blood Loss: EBL {In ML}: 125 ROS. ON OBSERVATION ONLY: HEENT : N. Resp : No cough, wheezing ,pleuritic CP ,or hemoptysis Cardio : No anginal CP, PND, orthopnea, palpitation GI : No abd.pain, n/v ,diarrhea or GI bleeding . MANAGEMENT TECHNICIAN : No headache, vertigo, focal deficit. Musculoskel : No joint swelling , Derm : No rash Psych : Normal affect. Ext : RT HIP ANT UPPER THIGH DRESSING C/D/I PE. Pt. is DROWSY, S in no distress. V.S As noted in the chart Head ,ear nose,throat and eyes : Normal. Neck : Supple with normal carotids. Lungs: Clear air entry. Heart : S1 & S2 normal with S4. No murmur. Abd : Soft non tender with normal bowel sounds. Neuro : Moves all ext. with no localized deficit. Ext : RT HIP ANT UPPER THIGH DRESSING C/D/I Derm : No rashes or decubitus ulcer. LABS/RADIOLOGY: RT HIPCULTURE 10/24/17 E.COLI S CEFEPIME,CIPRO, CEFAZOLIN. BLOOD CULTURE 1:2 SETS GPC-SCN 1:2 SETS ? CONTAMINANT ASSESSMENT/PLAN : CONTINUE IV ABX. INCREASE iv CEFTRIAXONE 1 G EVERY 12 HOURLY . CONTINUE iv VANCOMYCIN 1 G ONCE A DAY DAILY FOR NOW. PATIENT GOT 1 DOSE OF ANCEF IN OR. LWC PER ORTHO. Objective - Vital Signs/Intake and Output Vital Signs (last 24 hours): Temp Pulse Resp BP Pulse Ox 97.4 F L 83 20 113/62 97 10/28/17 20:15 10/28/17 21:00 10/28/17 20:15 10/28/17 20:15 10/28/17 20:15 Intake and Output: 10/28/17 10/29/17 18:59 06:59 Intake Total 800 Output Total 500 150 Balance 300 -150 - Medications Medications: Current Medications Acetaminophen (Tylenol 325mg Tab) 650 mg PO Q4 PRN PRN Reason: Fever >100.4 F Carbidopa/Levodopa (Sinemet) 1 tab PO TID [facility] Last Admin: 10/28/17 20:23 Dose: 1 tab Docusate Sodium (Colace) 100 mg PO BID [facility] Last Admin: 10/28/17 20:23 Dose: 100 mg Docusate Sodium (Colace) 100 mg PO BID [facility] Enoxaparin Sodium (Lovenox) 40 mg SC DAILY [facility] Ergocalciferol (Drisdol 50,000 Intl Units Cap) 1 cap PO Q7D [facility] Last Admin: 10/25/17 11:09 Dose: 1 cap Ferric Sodium Gluconate Complex (Ferrlecit) 125 mg IVPB DAILY [facility] Stop: 11/01/17 10:01 Last Admin: 10/28/17 12:06 Dose: 125 mg Ceftriaxone Sodium 1 gm/ (Sodium Chloride) 100 mls @ 100 mls/hr IVPB DAILY [facility] PRN Reason: Protocol Last Admin: 10/28/17 10:00 Dose: 100 mls/hr Vancomycin/Sodium Chloride (Vancomycin 1 Gm/Ns 200 Ml) 1 gm in 200 mls @ 166.7 mls/hr IVPB Q24H [facility] PRN Reason: Protocol Stop: 11/02/17 18:01 Last Admin: 10/28/17 20:24 Dose: 166.7 mls/hr Lactated Ringer's (Lactated Ringer's) 1,000 mls @ 75 mls/hr IV .[id number] [facility] Last Admin: 10/28/17 20:15 Dose: 75 mls/hr Lactated Ringer's (Lactated Ringer's) 1,000 mls @ 100 mls/hr IV .Q10H [facility] Stop: 10/29/17 04:48 Multivitamins (Hexavitamin) 1 tab PO DAILY [facility] Ondansetron HCl (Zofran Inj) 4 mg IVP ONCE PRN PRN Reason: Nausea/Vomiting Oxycodone/Acetaminophen (Percocet 5/325 Mg Tab) 2 tab PO Q4H PRN PRN Reason: Pain, severe (8-10) Stop: 10/31/17 18:50 Last Admin: 10/28/17 20:23 Dose: 2 tab - Labs Labs: 10/27/17 07:11 10/27/17 07:11 PT 13.9 SECONDS (9.7-12.2) H 10/27/17 07:11 INR 1.2 10/27/17 07:11 APTT 33 SECONDS (21-34) 10/27/17 07:11 Assessment and Plan (1) Pneumonia Status: Acute (2) Fever Status: Acute (3) Hip pain Status: Acute (4) Anemia Status: Acute (5) Fracture of right hip Status: Acute (6) Renal insufficiency Status: Acute
--- NOTE | 2017-10-28 23:32 | CP.PCM.PN ---
Subjective - Date & Time of Evaluation Date of Evaluation: 10/28/17 Time of Evaluation: 17:00 - Subjective Subjective: Pt seen and examined at bedside, pt is for right total hip replacement, medically stable, no cough, fever, chest pain. pt has some tremors due to PD Objective - Vital Signs/Intake and Output Vital Signs (last 24 hours): Temp Pulse Resp BP Pulse Ox 97.4 F L 83 20 113/62 97 10/28/17 20:15 10/28/17 21:00 10/28/17 20:15 10/28/17 20:15 10/28/17 20:15 Intake and Output: 10/28/17 10/29/17 18:59 06:59 Intake Total 800 Output Total 500 150 Balance 300 -150 - Medications Medications: Current Medications Acetaminophen (Tylenol 325mg Tab) 650 mg PO Q4 PRN PRN Reason: Fever >100.4 F Carbidopa/Levodopa (Sinemet) 1 tab PO TID [facility] Last Admin: 10/28/17 20:23 Dose: 1 tab Docusate Sodium (Colace) 100 mg PO BID [facility] Last Admin: 10/28/17 20:23 Dose: 100 mg Docusate Sodium (Colace) 100 mg PO BID [facility] Enoxaparin Sodium (Lovenox) 40 mg SC DAILY [facility] Ergocalciferol (Drisdol 50,000 Intl Units Cap) 1 cap PO Q7D [facility] Last Admin: 10/25/17 11:09 Dose: 1 cap Ferric Sodium Gluconate Complex (Ferrlecit) 125 mg IVPB DAILY [facility] Stop: 11/01/17 10:01 Last Admin: 10/28/17 12:06 Dose: 125 mg Ceftriaxone Sodium 1 gm/ (Sodium Chloride) 100 mls @ 100 mls/hr IVPB DAILY [facility] PRN Reason: Protocol Last Admin: 10/28/17 10:00 Dose: 100 mls/hr Vancomycin/Sodium Chloride (Vancomycin 1 Gm/Ns 200 Ml) 1 gm in 200 mls @ 166.7 mls/hr IVPB Q24H [facility] PRN Reason: Protocol Stop: 11/02/17 18:01 Last Admin: 10/28/17 20:24 Dose: 166.7 mls/hr Lactated Ringer's (Lactated Ringer's) 1,000 mls @ 75 mls/hr IV .[id number] [facility] Last Admin: 10/28/17 20:15 Dose: 75 mls/hr Lactated Ringer's (Lactated Ringer's) 1,000 mls @ 100 mls/hr IV .Q10H [facility] Stop: 10/29/17 04:48 Multivitamins (Hexavitamin) 1 tab PO DAILY [facility] Ondansetron HCl (Zofran Inj) 4 mg IVP ONCE PRN PRN Reason: Nausea/Vomiting Oxycodone/Acetaminophen (Percocet 5/325 Mg Tab) 2 tab PO Q4H PRN PRN Reason: Pain, severe (8-10) Stop: 10/31/17 18:50 Last Admin: 10/28/17 20:23 Dose: 2 tab - Labs Labs: 10/27/17 07:11 10/27/17 07:11 PT 13.9 SECONDS (9.7-12.2) H 10/27/17 07:11 INR 1.2 10/27/17 07:11 APTT 33 SECONDS (21-34) 10/27/17 07:11 - Constitutional Appears: No Acute Distress - Head Exam Head Exam: ATRAUMATIC, NORMAL INSPECTION, NORMOCEPHALIC - Respiratory Exam Respiratory Exam: Clear to Ausculation Bilateral, NORMAL BREATHING PATTERN - Cardiovascular Exam Cardiovascular Exam: REGULAR RHYTHM, +S1, +S2. absent: Murmur - GI/Abdominal Exam GI & Abdominal Exam: Soft, Normal Bowel Sounds. absent: Tenderness - Rectal Exam Rectal Exam: Deferred - Neurological Exam Neurological Exam: Abnormal Gait, Alert, Awake, CN II-XII Intact, Oriented x3 - Psychiatric Exam Psychiatric exam: Anxious Assessment and Plan (1) Parkinson disease Status: Acute (2) Anemia Status: Acute (3) Displaced fracture of right femoral neck Status: Acute
[2017-10-29 08:07] LABS: BASO % 0.4 % (0.0-2.0); EOS # 0.2 K/uL (0.0-0.7); HEMOGLOBIN 8.7 g/dL (12.0-18.0); LYMPH # 0.8 K/uL (1.0-4.3); LYMPH % 10.6 % (20.0-40.0); MEAN CELL VOLUME 92.8 fL (80.0-94.0); MEAN CORPUSCULAR HEMOGLOBIN 31.3 pg (27.0-31.0); MEAN CORPUSCULAR HGB CONC 33.7 g/dL (33.0-37.0); MEAN PLATELET VOLUME 7.7 fL (7.2-11.7); MONO # 0.5 K/uL (0.0-0.8); MONO % 5.9 % (0.0-10.0); NEUT # 6.1 K/uL (1.8-7.0); NEUT % 80.1 % (50.0-75.0); RBC 2.77 Mil/uL (4.40-5.90); RED CELL DISTRIBUTION WIDTH 14.8 % (11.5-14.5); WHITE BLOOD COUNT 7.7 K/uL (4.8-10.8)
[2017-10-29 08:22] LABS: BLOOD UREA NITROGEN 12 mg/dL (9-20); CALCIUM 7.3 mg/dl (8.6-10.4); GFR AFRICAN-AMERICAN > 60; GFR NON-AFRICAN AMERICAN > 60
[2017-10-29] MEDS: Multiple Vitamins Tab PO SCH (09:38)
--- NOTE | 2017-10-29 09:38 | CP.PCM.PN ---
Subjective - Date & Time of Evaluation Date of Evaluation: 10/29/17 Time of Evaluation: 09:35 - Subjective Subjective: Patient states pain is controlled right now. Denies numbness/tingling. Objective - Vital Signs/Intake and Output Vital Signs (last 24 hours): Temp Pulse Resp BP Pulse Ox 98.5 F 68 20 101/59 L 95 10/29/17 08:30 10/29/17 08:30 10/29/17 08:30 10/29/17 08:30 10/29/17 08:30 Intake and Output: 10/29/17 10/29/17 06:59 18:59 Intake Total 525 Output Total 625 Balance -100 - Medications Medications: Current Medications Acetaminophen (Tylenol 325mg Tab) 650 mg PO Q4 PRN PRN Reason: Fever >100.4 F Carbidopa/Levodopa (Sinemet) 1 tab PO TID [facility] Last Admin: 10/28/17 20:23 Dose: 1 tab Docusate Sodium (Colace) 100 mg PO BID [facility] Last Admin: 10/28/17 20:23 Dose: 100 mg Docusate Sodium (Colace) 100 mg PO BID [facility] Enoxaparin Sodium (Lovenox) 40 mg SC DAILY [facility] Ergocalciferol (Drisdol 50,000 Intl Units Cap) 1 cap PO Q7D [facility] Last Admin: 10/25/17 11:09 Dose: 1 cap Ferric Sodium Gluconate Complex (Ferrlecit) 125 mg IVPB DAILY [facility] Stop: 11/01/17 10:01 Last Admin: 10/28/17 12:06 Dose: 125 mg Vancomycin/Sodium Chloride (Vancomycin 1 Gm/Ns 200 Ml) 1 gm in 200 mls @ 166.7 mls/hr IVPB Q24H [facility] PRN Reason: Protocol Stop: 11/02/17 18:01 Last Admin: 10/28/17 20:24 Dose: 166.7 mls/hr Lactated Ringer's (Lactated Ringer's) 1,000 mls @ 75 mls/hr IV .[id number] [facility] Last Admin: 10/28/17 20:15 Dose: 75 mls/hr Ceftriaxone Sodium 1 gm/ (Sodium Chloride) 100 mls @ 100 mls/hr IVPB Q12H [facility] PRN Reason: Protocol Last Admin: 10/29/17 05:28 Dose: 100 mls/hr Multivitamins (Hexavitamin) 1 tab PO DAILY [facility] Ondansetron HCl (Zofran Inj) 4 mg IVP ONCE PRN PRN Reason: Nausea/Vomiting Oxycodone/Acetaminophen (Percocet 5/325 Mg Tab) 2 tab PO Q4H PRN PRN Reason: Pain, severe (8-10) Stop: 10/31/17 18:50 Last Admin: 10/28/17 20:23 Dose: 2 tab - Labs Labs: 10/29/17 07:56 10/29/17 07:56 PT 13.9 SECONDS (9.7-12.2) H 10/27/17 07:11 INR 1.2 10/27/17 07:11 APTT 33 SECONDS (21-34) 10/27/17 07:11 - Extremities Exam Additional comments: right hip: thigh mildly swollen, dressing intact, +ROM ankle/toes, sensation intact, +DP/PT pulses Assessment and Plan (1) Status post total hip replacement, right Assessment & Plan: POD#1 s/p right hip I&D/component exchange f/u intraop cx, prelim gram neg rods patient will need IV antibiotics x 6 weeks f/u PICC PT/OT VTE proph d/c planning d/w Dr. Metcalf, agrees with above Status: Acute
[2017-10-29] MEDS: Lactated Ringer's 1,000 ML IV SCH (09:39)
[2017-10-29] MEDS: Enoxaparin 40 mg Syringe SC SCH (09:39)
[2017-10-29] MEDS: Ferric Sodium Gluconat Complex 62.5 mg/5 ml Vial IVPB SCH (10:30)
--- NOTE | 2017-10-29 14:47 | RAD ---
PROCEDURE: Intraoperative Fluoroscopy. HISTORY: PERSISTANT RT HIP DRAINAGE FINDINGS: Fluoroscopic assistance was provided for right hip arthroplasty. Please refer to the operative report from RACHELE Ramirez. Total fluoroscopic time (continuous mode) utilized during the procedure 2.6 (seconds). Total exam DLP: (mGy) 0.35
[2017-10-29] MEDS: Vancomycin 1 gm/NS 200 ml 1 GM/200 ML BAG IVPB SCH (19:01)
[2017-10-29] MEDS: Oxycodone/Acetaminophen 5/325 mg Tab PO PRN (22:56)
--- NOTE | 2017-10-29 23:35 | CP.PCM.PN ---
Subjective - Date & Time of Evaluation Date of Evaluation: 10/29/17 Time of Evaluation: 23:35 - Subjective Subjective: CHIEF COMPLAINTS TODAY : afebrile, postopt. pain S/P OR 10/28/17 Operation Performed: Revision R THR- component exchange- acetabulum/ femoral head. insertion abio impregnated pellets. excision heterotopic ossification. excision skin/subcutaneous tissue/muscle ROS. HEENT : N. Resp : No cough, wheezing ,pleuritic CP ,or hemoptysis Cardio : No anginal CP, PND, orthopnea, palpitation GI : No abd.pain, n/v ,diarrhea or GI bleeding . NAIL WELTER : No headache, vertigo, focal deficit. Musculoskel : No joint swelling , Derm : No rash Psych : Normal affect. Ext : RT HIP ANT UPPER THIGH DRESSING C/D/I PE. Pt. is DROWSY, S in no distress. V.S As noted in the chart Head ,ear nose,throat and eyes : Normal. Neck : Supple with normal carotids. Lungs: Clear air entry. Heart : S1 & S2 normal with S4. No murmur. Abd : Soft non tender with normal bowel sounds. Neuro : Moves all ext. with no localized deficit. Ext : RT HIP ANT UPPER THIGH DRESSING C/D/I Derm : No rashes or decubitus ulcer. LABS/RADIOLOGY: RT HIPCULTURE 10/24/17 E.COLI S CEFEPIME,CIPRO, CEFAZOLIN. BLOOD CULTURE 1:2 SETS GPC-SCN 1:2 SETS ? CONTAMINANT ASSESSMENT/PLAN : CONTINUE IV ABX. on iv CEFTRIAXONE 1 G EVERY 12 HOURLY . CONTINUE iv VANCOMYCIN 1 G ONCE A DAY DAILY FOR NOW. LWC PER ORTHO. Objective - Vital Signs/Intake and Output Vital Signs (last 24 hours): Temp Pulse Resp BP Pulse Ox 98 F 63 20 101/61 99 10/29/17 15:16 10/29/17 15:16 10/29/17 15:16 10/29/17 15:16 10/29/17 15:16 Intake and Output: 10/29/17 10/30/17 18:59 06:59 Output Total 1500 Balance -1500 - Medications Medications: Current Medications Acetaminophen (Tylenol 325mg Tab) 650 mg PO Q4 PRN PRN Reason: Fever >100.4 F Carbidopa/Levodopa (Sinemet) 1 tab PO TID [facility] Last Admin: 10/29/17 19:02 Dose: 1 tab Docusate Sodium (Colace) 100 mg PO BID [facility] Last Admin: 10/29/17 18:00 Dose: Not Given Docusate Sodium (Colace) 100 mg PO BID [facility] Last Admin: 10/29/17 19:10 Dose: Not Given Enoxaparin Sodium (Lovenox) 40 mg SC DAILY [facility] Last Admin: 10/29/17 09:39 Dose: 40 mg Ergocalciferol (Drisdol 50,000 Intl Units Cap) 1 cap PO Q7D [facility] Last Admin: 10/25/17 11:09 Dose: 1 cap Ferric Sodium Gluconate Complex (Ferrlecit) 125 mg IVPB DAILY [facility] Stop: 11/01/17 10:01 Last Admin: 10/29/17 10:30 Dose: 125 mg Vancomycin/Sodium Chloride (Vancomycin 1 Gm/Ns 200 Ml) 1 gm in 200 mls @ 166.7 mls/hr IVPB Q24H [facility] PRN Reason: Protocol Stop: 11/02/17 18:01 Last Admin: 10/29/17 19:01 Dose: 166.7 mls/hr Ceftriaxone Sodium 1 gm/ (Sodium Chloride) 100 mls @ 100 mls/hr IVPB Q12H [facility] PRN Reason: Protocol Last Admin: 10/29/17 19:10 Dose: 100 mls/hr Multivitamins (Hexavitamin) 1 tab PO DAILY [facility] Last Admin: 10/29/17 09:38 Dose: 1 tab Ondansetron HCl (Zofran Inj) 4 mg IVP ONCE PRN PRN Reason: Nausea/Vomiting Oxycodone/Acetaminophen (Percocet 5/325 Mg Tab) 2 tab PO Q4H PRN PRN Reason: Pain, severe (8-10) Stop: 10/31/17 18:50 Last Admin: 10/29/17 22:56 Dose: 2 tab - Labs Labs: 10/29/17 07:56 10/29/17 07:56 PT 13.9 SECONDS (9.7-12.2) H 10/27/17 07:11 INR 1.2 10/27/17 07:11 APTT 33 SECONDS (21-34) 10/27/17 07:11 Assessment and Plan (1) Pneumonia Status: Acute (2) Fever Status: Acute (3) Hip pain Status: Acute (4) Anemia Status: Acute (5) Fracture of right hip Status: Acute (6) Renal insufficiency Status: Acute
--- NOTE | 2017-10-29 23:48 | CP.PCM.PN ---
Subjective - Date & Time of Evaluation Date of Evaluation: 10/29/17 Time of Evaluation: 18:00 Objective - Vital Signs/Intake and Output Vital Signs (last 24 hours): Temp Pulse Resp BP Pulse Ox 98 F 63 20 101/61 99 10/29/17 15:16 10/29/17 15:16 10/29/17 15:16 10/29/17 15:16 10/29/17 15:16 Intake and Output: 10/29/17 10/30/17 18:59 06:59 Output Total 1500 Balance -1500 - Medications Medications: Current Medications Acetaminophen (Tylenol 325mg Tab) 650 mg PO Q4 PRN PRN Reason: Fever >100.4 F Carbidopa/Levodopa (Sinemet) 1 tab PO TID [facility] Last Admin: 10/29/17 19:02 Dose: 1 tab Docusate Sodium (Colace) 100 mg PO BID [facility] Last Admin: 10/29/17 18:00 Dose: Not Given Docusate Sodium (Colace) 100 mg PO BID [facility] Last Admin: 10/29/17 19:10 Dose: Not Given Enoxaparin Sodium (Lovenox) 40 mg SC DAILY [facility] Last Admin: 10/29/17 09:39 Dose: 40 mg Ergocalciferol (Drisdol 50,000 Intl Units Cap) 1 cap PO Q7D [facility] Last Admin: 10/25/17 11:09 Dose: 1 cap Ferric Sodium Gluconate Complex (Ferrlecit) 125 mg IVPB DAILY [facility] Stop: 11/01/17 10:01 Last Admin: 10/29/17 10:30 Dose: 125 mg Vancomycin/Sodium Chloride (Vancomycin 1 Gm/Ns 200 Ml) 1 gm in 200 mls @ 166.7 mls/hr IVPB Q24H [facility] PRN Reason: Protocol Stop: 11/02/17 18:01 Last Admin: 10/29/17 19:01 Dose: 166.7 mls/hr Ceftriaxone Sodium 1 gm/ (Sodium Chloride) 100 mls @ 100 mls/hr IVPB Q12H [facility] PRN Reason: Protocol Last Admin: 10/29/17 19:10 Dose: 100 mls/hr Multivitamins (Hexavitamin) 1 tab PO DAILY [facility] Last Admin: 10/29/17 09:38 Dose: 1 tab Ondansetron HCl (Zofran Inj) 4 mg IVP ONCE PRN PRN Reason: Nausea/Vomiting Oxycodone/Acetaminophen (Percocet 5/325 Mg Tab) 2 tab PO Q4H PRN PRN Reason: Pain, severe (8-10) Stop: 10/31/17 18:50 Last Admin: 10/29/17 22:56 Dose: 2 tab - Labs Labs: 10/29/17 07:56 10/29/17 07:56 PT 13.9 SECONDS (9.7-12.2) H 10/27/17 07:11 INR 1.2 10/27/17 07:11 APTT 33 SECONDS (21-34) 10/27/17 07:11 Assessment and Plan (1) Parkinson disease Status: Acute (2) Anemia Status: Acute (3) Displaced fracture of right femoral neck Status: Acute
[2017-10-30 07:10] LABS: EOS # 0.3 K/uL (0.0-0.7); EOS % 7.1 % (0.0-4.0); HEMOGLOBIN 7.2 g/dL (12.0-18.0); LYMPH # 0.9 K/uL (1.0-4.3); LYMPH % 19.3 % (20.0-40.0); MEAN CELL VOLUME 93.1 fL (80.0-94.0); MEAN CORPUSCULAR HEMOGLOBIN 31.2 pg (27.0-31.0); MEAN CORPUSCULAR HGB CONC 33.5 g/dL (33.0-37.0); MEAN PLATELET VOLUME 7.4 fL (7.2-11.7); MONO # 0.5 K/uL (0.0-0.8); NEUT # 2.9 K/uL (1.8-7.0); NEUT % 61.6 % (50.0-75.0); NRBC % 0.1 % (0.0-2.0); RBC 2.31 Mil/uL (4.40-5.90); RED CELL DISTRIBUTION WIDTH 14.8 % (11.5-14.5); WHITE BLOOD COUNT 4.7 K/uL (4.8-10.8)
--- NOTE | 2017-10-30 08:53 | CP.PCM.PN ---
Subjective - Date & Time of Evaluation Date of Evaluation: 10/30/17 Time of Evaluation: 08:52 - Subjective Subjective: Patient offers no complaints today. pain controlled. Objective - Vital Signs/Intake and Output Vital Signs (last 24 hours): Temp Pulse Resp BP Pulse Ox 98.2 F 60 20 93/52 L 100 10/30/17 08:26 10/30/17 08:26 10/30/17 08:26 10/30/17 08:26 10/30/17 08:26 Intake and Output: 10/30/17 10/30/17 06:59 18:59 Output Total 2500 Balance -2500 - Medications Medications: Current Medications Acetaminophen (Tylenol 325mg Tab) 650 mg PO Q4 PRN PRN Reason: Fever >100.4 F Carbidopa/Levodopa (Sinemet) 1 tab PO TID [facility] Last Admin: 10/29/17 19:02 Dose: 1 tab Docusate Sodium (Colace) 100 mg PO BID [facility] Last Admin: 10/29/17 18:00 Dose: Not Given Docusate Sodium (Colace) 100 mg PO BID [facility] Last Admin: 10/29/17 19:10 Dose: Not Given Enoxaparin Sodium (Lovenox) 40 mg SC DAILY [facility] Last Admin: 10/29/17 09:39 Dose: 40 mg Ergocalciferol (Drisdol 50,000 Intl Units Cap) 1 cap PO Q7D [facility] Last Admin: 10/25/17 11:09 Dose: 1 cap Ferric Sodium Gluconate Complex (Ferrlecit) 125 mg IVPB DAILY [facility] Stop: 11/01/17 10:01 Last Admin: 10/29/17 10:30 Dose: 125 mg Vancomycin/Sodium Chloride (Vancomycin 1 Gm/Ns 200 Ml) 1 gm in 200 mls @ 166.7 mls/hr IVPB Q24H [facility] PRN Reason: Protocol Stop: 11/02/17 18:01 Last Admin: 10/29/17 19:01 Dose: 166.7 mls/hr Ceftriaxone Sodium 1 gm/ (Sodium Chloride) 100 mls @ 100 mls/hr IVPB Q12H [facility] PRN Reason: Protocol Last Admin: 10/30/17 05:53 Dose: 100 mls/hr Multivitamins (Hexavitamin) 1 tab PO DAILY [facility] Last Admin: 10/29/17 09:38 Dose: 1 tab Ondansetron HCl (Zofran Inj) 4 mg IVP ONCE PRN PRN Reason: Nausea/Vomiting Oxycodone/Acetaminophen (Percocet 5/325 Mg Tab) 2 tab PO Q4H PRN PRN Reason: Pain, severe (8-10) Stop: 10/31/17 18:50 Last Admin: 10/29/17 22:56 Dose: 2 tab - Labs Labs: 10/30/17 06:58 10/29/17 07:56 PT 13.9 SECONDS (9.7-12.2) H 10/27/17 07:11 INR 1.2 10/27/17 07:11 APTT 33 SECONDS (21-34) 10/27/17 07:11 - Extremities Exam Additional comments: ana dressing saturated. Removed. betadine wet to dry dressing applied +ROM ankle/toes active serous drainage from right hip thigh mildly swollen calves osft NT neg homans Assessment and Plan (1) Status post total hip replacement, right Assessment & Plan: POD#2 s/p right hip I&D/component exchange f/u intraop cx, prelim gram neg rods patient will need IV antibiotics x 6 weeks f/u PICC PT/OT VTE proph d/c planning dressing changes ordered d/w Dr. Metcalf, agrees with above Status: Acute
[2017-10-30] MEDS: Multiple Vitamins Tab PO SCH (09:48)
[2017-10-30] MEDS: Ferric Sodium Gluconat Complex 62.5 mg/5 ml Vial IVPB SCH (09:52)
[2017-10-30] MEDS: Enoxaparin 40 mg Syringe SC SCH (09:53)
--- NOTE | 2017-10-30 16:23 | RAD ---
HISTORY: verify right PICC COMPARISON: 10/23/2017 FINDINGS: LUNGS: No active pulmonary disease. PLEURA: Small bilateral pleural effusion. No pneumothorax. Evaluation of left costophrenic angle limited due to overlying radiation monitor. CARDIOVASCULAR: Normal heart size. Congestive change. Possible congestive heart failure. No evidence of pulmonary edema. New right PICC catheter terminates in the region of the hip. OSSEOUS STRUCTURES: No significant abnormalities. VISUALIZED UPPER ABDOMEN: Normal. OTHER FINDINGS: None. IMPRESSION: Possible congestive heart failure with congestive change and small pleural effusions. No evidence of cynthia pulmonary edema. New right PICC catheter terminates in the region of the superior vena cava.
[2017-10-30] MEDS: Vancomycin 1 gm/NS 200 ml 1 GM/200 ML BAG IVPB SCH (18:34)
[2017-10-30] MEDS: Oxycodone/Acetaminophen 5/325 mg Tab PO PRN (18:40)
[2017-10-30] MEDS ORDERED: Gentamicin 80 mg/2mL Inj. IVPB SCH (22:15)
--- NOTE | 2017-10-30 22:18 | CP.PCM.PN ---
Subjective - Date & Time of Evaluation Date of Evaluation: 10/30/17 Time of Evaluation: 22:18 - Subjective Subjective: CHIEF COMPLAINTS TODAY : afebrile, postopt. pain weak. S/P PRBC TRANSFUSION X 1 -- 10/30/17 S/P OR 10/28/17 Operation Performed: Revision R THR- component exchange- acetabulum/ femoral head. ROS. HEENT : N. Resp : No cough, wheezing ,pleuritic CP ,or hemoptysis Cardio : No anginal CP, PND, orthopnea, palpitation GI : No abd.pain, n/v ,diarrhea or GI bleeding . EDGE SANDER : No headache, vertigo, focal deficit. Musculoskel : No joint swelling , Derm : No rash Psych : Normal affect. Ext : RT HIP ANT UPPER THIGH DRESSING C/D/I PE. Pt. is DROWSY, S in no distress. V.S As noted in the chart Head ,ear nose,throat and eyes : Normal. Neck : Supple with normal carotids. Lungs: Clear air entry. Heart : S1 & S2 normal with S4. No murmur. Abd : Soft non tender with normal bowel sounds. Neuro : Moves all ext. with no localized deficit. Ext : RT HIP ANT UPPER THIGH DRESSING C/D/I Derm : No rashes or decubitus ulcer. LABS/RADIOLOGY: rt hip cultures 10/28/17 +ve e. coli RT HIPCULTURE 10/24/17 E.COLI S CEFEPIME,CIPRO, CEFAZOLIN. BLOOD CULTURE 1:2 SETS GPC-SCN 1:2 SETS ? CONTAMINANT ASSESSMENT/PLAN : CONTINUE IV ABX. dc iv CEFTRIAXONE 1 G EVERY 12 HOURLY . START IV CEFEPIME 2GM IVPB [id number] 10/31/17 ONE DOSE GENTAMICIN 140MG X1 STAT 10/30/17 CONTINUE iv VANCOMYCIN 1 G ONCE A DAY DAILY FOR NOW. LWC PER ORTHO. Objective - Vital Signs/Intake and Output Vital Signs (last 24 hours): Temp Pulse Resp BP Pulse Ox 98.1 F 59 L 20 96/49 L 100 10/30/17 22:15 10/30/17 22:15 10/30/17 22:15 10/30/17 22:15 10/30/17 08:26 Intake and Output: 10/30/17 10/31/17 18:59 06:59 Intake Total 375 0 Balance 375 0 - Medications Medications: Current Medications Acetaminophen (Tylenol 325mg Tab) 650 mg PO Q4 PRN PRN Reason: Fever >100.4 F Carbidopa/Levodopa (Sinemet) 1 tab PO TID [facility] Last Admin: 10/30/17 18:34 Dose: 1 tab Docusate Sodium (Colace) 100 mg PO BID [facility] Last Admin: 10/30/17 18:32 Dose: Not Given Docusate Sodium (Colace) 100 mg PO BID [facility] Last Admin: 10/30/17 09:49 Dose: Not Given Enoxaparin Sodium (Lovenox) 40 mg SC DAILY [facility] Last Admin: 10/30/17 09:53 Dose: Not Given Ergocalciferol (Drisdol 50,000 Intl Units Cap) 1 cap PO Q7D [facility] Last Admin: 10/25/17 11:09 Dose: 1 cap Ferric Sodium Gluconate Complex (Ferrlecit) 125 mg IVPB DAILY [facility] Stop: 11/01/17 10:01 Last Admin: 10/30/17 09:52 Dose: Not Given Gentamicin Sulfate (Gentamicin) 140 mg 1.7 mg/kg (140 mg) IVPB Q8H [facility] PRN Reason: Protocol Vancomycin/Sodium Chloride (Vancomycin 1 Gm/Ns 200 Ml) 1 gm in 200 mls @ 166.7 mls/hr IVPB Q24H [facility] PRN Reason: Protocol Stop: 11/02/17 18:01 Last Admin: 10/30/17 18:34 Dose: 166.7 mls/hr Ceftriaxone Sodium 1 gm/ (Sodium Chloride) 100 mls @ 100 mls/hr IVPB Q12H [facility] PRN Reason: Protocol Last Admin: 10/30/17 18:33 Dose: 100 mls/hr Cefepime HCl (Maxipime Iv 2 Gm Premix) 2 gm in 100 mls @ 200 mls/hr IVPB Q12H [facility] PRN Reason: Protocol Stop: 11/04/17 22:16 Multivitamins (Hexavitamin) 1 tab PO DAILY [facility] Last Admin: 10/30/17 09:48 Dose: 1 tab Ondansetron HCl (Zofran Inj) 4 mg IVP ONCE PRN PRN Reason: Nausea/Vomiting Oxycodone/Acetaminophen (Percocet 5/325 Mg Tab) 2 tab PO Q4H PRN PRN Reason: Pain, severe (8-10) Stop: 10/31/17 18:50 Last Admin: 10/30/17 18:40 Dose: 2 tab - Labs Labs: 10/30/17 06:58 10/29/17 07:56 PT 13.9 SECONDS (9.7-12.2) H 10/27/17 07:11 INR 1.2 10/27/17 07:11 APTT 33 SECONDS (21-34) 10/27/17 07:11 Assessment and Plan (1) Pneumonia Status: Acute (2) Fever Status: Acute (3) Hip pain Status: Acute (4) Anemia Status: Acute (5) Fracture of right hip Status: Acute (6) Renal insufficiency Status: Acute
--- NOTE | 2017-10-31 00:08 | CP.PCM.PN ---
Subjective - Date & Time of Evaluation Date of Evaluation: 10/30/17 Time of Evaluation: 17:00 - Subjective Subjective: Pt seen and examined, c/o post op pain Objective - Vital Signs/Intake and Output Vital Signs (last 24 hours): Temp Pulse Resp BP Pulse Ox 98.1 F 59 L 20 96/49 L 100 10/30/17 22:15 10/30/17 22:15 10/30/17 22:15 10/30/17 22:15 10/30/17 08:26 Intake and Output: 10/30/17 10/31/17 18:59 06:59 Intake Total 375 0 Balance 375 0 - Medications Medications: Current Medications Acetaminophen (Tylenol 325mg Tab) 650 mg PO Q4 PRN PRN Reason: Fever >100.4 F Carbidopa/Levodopa (Sinemet) 1 tab PO TID [facility] Last Admin: 10/30/17 18:34 Dose: 1 tab Docusate Sodium (Colace) 100 mg PO BID [facility] Last Admin: 10/30/17 18:32 Dose: Not Given Docusate Sodium (Colace) 100 mg PO BID [facility] Last Admin: 10/30/17 18:00 Dose: Not Given Enoxaparin Sodium (Lovenox) 40 mg SC DAILY [facility] Last Admin: 10/30/17 09:53 Dose: Not Given Ergocalciferol (Drisdol 50,000 Intl Units Cap) 1 cap PO Q7D [facility] Last Admin: 10/25/17 11:09 Dose: 1 cap Ferric Sodium Gluconate Complex (Ferrlecit) 125 mg IVPB DAILY [facility] Stop: 11/01/17 10:01 Last Admin: 10/30/17 09:52 Dose: Not Given Vancomycin/Sodium Chloride (Vancomycin 1 Gm/Ns 200 Ml) 1 gm in 200 mls @ 166.7 mls/hr IVPB Q24H [facility] PRN Reason: Protocol Stop: 11/02/17 18:01 Last Admin: 10/30/17 18:34 Dose: 166.7 mls/hr Cefepime HCl 2 gm/ Sodium (Chloride) 100 mls @ 200 mls/hr IVPB Q12H [facility] PRN Reason: Protocol Stop: 11/04/17 00:01 Gentamicin Sulfate 140 mg/ (Sodium Chloride) 103.5 mls @ 103.5 mls/hr IVPB ONCE ONE Stop: 10/31/17 00:29 Last Admin: 10/30/17 23:22 Dose: 103.5 mls/hr Multivitamins (Hexavitamin) 1 tab PO DAILY [facility] Last Admin: 10/30/17 09:48 Dose: 1 tab Ondansetron HCl (Zofran Inj) 4 mg IVP ONCE PRN PRN Reason: Nausea/Vomiting Oxycodone/Acetaminophen (Percocet 5/325 Mg Tab) 2 tab PO Q4H PRN PRN Reason: Pain, severe (8-10) Stop: 10/31/17 18:50 Last Admin: 10/30/17 18:40 Dose: 2 tab - Labs Labs: 10/30/17 06:58 10/29/17 07:56 PT 13.9 SECONDS (9.7-12.2) H 10/27/17 07:11 INR 1.2 10/27/17 07:11 APTT 33 SECONDS (21-34) 10/27/17 07:11 - Extremities Exam Additional comments: ana dressing saturated. Removed. betadine wet to dry dressing applied +ROM ankle/toes active serous drainage from right hip thigh mildly swollen calves osft NT neg homans Assessment and Plan (1) Parkinson disease Status: Acute (2) Anemia Status: Acute (3) Displaced fracture of right femoral neck Assessment & Plan: Assessment and Plan (1) Status post total hip replacement, right Assessment & Plan: POD#2 s/p right hip I&D/component exchange f/u intraop cx, prelim gram neg rods patient will need IV antibiotics x 6 weeks f/u PICC PT/OT VTE proph d/c planning dressing changes ordered Status: Acute
[2017-10-31] MEDS: Cefepime 2 GM in Sodium Chloride 0.9% 100 ML IVPB SCH ×2 (00:41→13:23)
--- NOTE | 2017-10-31 07:55 | PN ---
DATE: 10/30/2017. The patient has urinary retention, large bladder volume. The Fletcher was not in, after putting the Fletcher correct, he has 2000 mL. Apparently, he has sepsis from collection of blood. Dr. Metcalf did the drainage and the patient today Fletcher catheter functioned, he can be discharged with the Fletcher. I will follow him. Fabrizio Walsh MD
--- NOTE | 2017-10-31 08:26 | OP ---
PROCEDURE DATE: 10/28/2017 PREOPERATIVE DIAGNOSIS: Drainage right hip, status post successful total hip replacement 2-1/2 weeks ago. POSTOPERATIVE DIAGNOSIS: Drainage right hip, status post successful total hip replacement 2-1/2 weeks ago, rule out deep sepsis. PROCEDURES: 1. Revision total hip replacement, arthroplasty, revision of the femoral head and acetabular shell, acetabular insert. 2. Arthrotomy of the hip, excision of heterotopic ossification. 3. Irrigation and debridement, incision and drainage. 4. Release of iliopsoas tendon. SURGEON: Marky Metcalf MD BROKERAGE CLERK: MARVIN Reyes TYPE OF ANESTHESIA: General endotracheal anesthesia. ANESTHESIOLOGIST: Curtis Payan DO COMPLICATIONS: No complications. JYOTSNA wound drain system with postoperative dressing. ESTIMATED BLOOD LOSS: Approximately 125 mL. COMPLICATIONS: No complications. OPERATIVE INDICATIONS: Holger Wolff is a gentleman who presented to the [facility] Emergency Room from [facility] while I was signed out for coverage at a medical conference. The patient was seen by the Pas and Dr. Luna. Because of the patient's situation, I returned from conference a day early, evaluated the patient on 10/27/2017 and the patient was stabilized. Anticoagulation was discontinued. The patient was stabilized for surgery. The pros, cons, risks, and benefits of the surgical approach were discussed. Possibility of incison, drainage, and revision, component exchange was discussed since the hip is in the subacute. This having been accomplished, the possibility of mechanical failure, recurrent infection, thromboembolic disease, secondary or even tertiary surgery was discussed. The concept of later repeat revision surgery with the removal of the entire total hip construct and insertion of antibiotic-impregnated spacer was discussed. The patient fully is aware of this. The patient does admit that in the nursing facility, there was improper management of the wound, the only cultures which may be in error may be spurious revealed E. coli, possibly from toileting in the Nursing Facility and the travel to the unit. DESCRIPTION OF PROCEDURE: After having obtained informed consent, after having identified the side, site, and procedure and critical pause/time-out, after satisfactory induction of the anesthetic, the patient identified as Holger Wolff. He was placed in the supine position with all bony prominences well padded. The right lower extremity was prepped and re-draped in the usual fashion for an anterior approach hip surgery. The patient was positioned in the [facility] traction table positioner. The well leg was well padded. All bony prominences were well padded. After sterilely prepping and draping and under the surgeon's direction, the fluoroscope was positioned. Video images were generated and therapeutic decisions were made therefrom. This having been accomplished with the initial incision, the lurdes were removed and the incision was carried down through the skin and subcutaneous tissue. This having been accomplished, the wound was opened. The skin incision was carried down through the skin and subcutaneous tissue. An ellipse of skin and subcutaneous tissue was removed. Thorough irrigation was accomplished. At this point in time, the closure of the tensor fascia niels muscle was released . The deep foreign bodies were removed from the sutures. This having been accomplished, hip arthrotomy was accomplished and debridement of the capsule was accomplished as well as debridement of surrounding tissues. Extensive debridement was accomplished down to bleeding tissues. This having been accomplished, the wound was thoroughly irrigated. Hemostasis was controlled with the Aquamantys. This having been accomplished, the iliopsoas tendon was removed. There was sign of the evidence of heterotopic ossification on the proximal aspect of the femur. Using a three-quarter inch curved osteotome, the heterotopic ossification was removed. The heterotopic ossification having been removed, the wound was thoroughly irrigated. At this point in time, the hip was dislocated and the femoral head was popped off with the device. The acetabular inner polyethylene bearing was removed as well. This construct having been removed, thorough irrigation and debridement of the hip wound, continuous release of 5 liters of antibiotic-impregnated saline. This having been accomplished, the wound having been thoroughly irrigated, the 28 mm ceramic head was employed with the polyethylene bearing. The construct was reduced and found to be stable in all planes. The wound again was thoroughly irrigated, closures in layers with 0 Vicryl for the fascia and tensor fascia femoris, 0 Vicryl and lurdes to skin, a JYOTSNA wound VAC type dressing was applied. Vinicio Holloway compression dressing was applied. It should be noted that prior to closure, antibiotic-impregnated calcium sulfate beads were constructed and these were placed in the hip joint space. Hemostasis was controlled with the Aquamantys. The wound was thoroughly irrigated again prior to insertion of the antibiotic-impregnated beads. With the antibiotic-impregnated beads implanted, the closure procedure as described. 0 Vicryl for the fascia on the tensor fascia femoris, followed by 0 Vicryl and lurdes to skin. Compression dressing was applied. The JYOTSNA was again applied as well. OPERATIVE PROCEDURE: 1. Revision right total hip replacement, acetabular and femoral component. 2. Excision of heterotopic ossification. 3. Arthrotomy, irrigation and debridement. 4. Release of iliopsoas tendon. 5. Insertion of antibiotic-impregnated beads. JYOTSNA wound VAC drain employed. POSTOPERATIVE DIAGNOSES: Rule out septic total hip replacement. It should be noted that aliquots of this wound was sent down for staph Gram Stain with number of white cells per high-powered field and bacteria culture. Cultures were sent, aerobic, anaerobic, AFB, and fungal cultures. This having been accomplished, the concept that this is in the acute versus subacute period allows to the retention of the acetabular shell and femoral stem with revision of the remainder of the construct on both the femoral and acetabular side. POSTOPERATIVE FINDINGS: 1. Rule out septic total hip replacement arthroplasty. 2. Heterotopic ossification. 3. Iliopsoas tendon contracture. Marky Metcalf MD
[2017-10-31 08:37] LABS: BASO % 0.9 % (0.0-2.0); EOS # 0.4 K/uL (0.0-0.7); EOS % 7.9 % (0.0-4.0); LYMPH # 0.8 K/uL (1.0-4.3); MEAN CORPUSCULAR HEMOGLOBIN 31.6 pg (27.0-31.0); MEAN CORPUSCULAR HGB CONC 34.9 g/dL (33.0-37.0); MEAN PLATELET VOLUME 7.5 fL (7.2-11.7); MONO # 0.5 K/uL (0.0-0.8); MONO % 11.5 % (0.0-10.0); NEUT # 2.9 K/uL (1.8-7.0); NEUT % 62.7 % (50.0-75.0); RBC 3.12 Mil/uL (4.40-5.90); RED CELL DISTRIBUTION WIDTH 16.1 % (11.5-14.5); WHITE BLOOD COUNT 4.6 K/uL (4.8-10.8)
[2017-10-31 08:43] LABS: HEMOGLOBIN 9.8 g/dL (12.0-18.0); MEAN CELL VOLUME 90.5 fL (80.0-94.0)
[2017-10-31 08:46] LABS: BLOOD UREA NITROGEN 10 mg/dL (9-20); CALCIUM 7.8 mg/dl (8.6-10.4); GFR AFRICAN-AMERICAN > 60; GFR NON-AFRICAN AMERICAN > 60
[2017-10-31] MEDS: Multiple Vitamins Tab PO SCH (09:58)
[2017-10-31] MEDS: Ferric Sodium Gluconat Complex 62.5 mg/5 ml Vial IVPB SCH (09:59)
[2017-10-31] MEDS: Enoxaparin 40 mg Syringe SC SCH (09:59)
--- NOTE | 2017-10-31 12:58 | CP.PCM.PN ---
Subjective - Date & Time of Evaluation Date of Evaluation: 10/31/17 Time of Evaluation: 12:56 - Subjective Subjective: Patient without new complaints. Slowly progressing with PT Objective - Vital Signs/Intake and Output Vital Signs (last 24 hours): Temp Pulse Resp BP Pulse Ox 98.6 F 59 L 20 109/65 100 10/31/17 08:36 10/31/17 08:36 10/31/17 08:36 10/31/17 08:36 10/31/17 08:36 Intake and Output: 10/31/17 10/31/17 06:59 18:59 Intake Total 1125 Output Total 3100 Balance -1975 - Medications Medications: Current Medications Acetaminophen (Tylenol 325mg Tab) 650 mg PO Q4 PRN PRN Reason: Fever >100.4 F Carbidopa/Levodopa (Sinemet) 1 tab PO TID [facility] Last Admin: 10/31/17 09:58 Dose: 1 tab Docusate Sodium (Colace) 100 mg PO BID [facility] Last Admin: 10/31/17 09:59 Dose: Not Given Docusate Sodium (Colace) 100 mg PO BID [facility] Last Admin: 10/31/17 09:59 Dose: Not Given Enoxaparin Sodium (Lovenox) 40 mg SC DAILY [facility] Last Admin: 10/31/17 09:59 Dose: 40 mg Ergocalciferol (Drisdol 50,000 Intl Units Cap) 1 cap PO Q7D [facility] Last Admin: 10/25/17 11:09 Dose: 1 cap Ferric Sodium Gluconate Complex (Ferrlecit) 125 mg IVPB DAILY [facility] Stop: 11/01/17 10:01 Last Admin: 10/31/17 09:59 Dose: 125 mg Vancomycin/Sodium Chloride (Vancomycin 1 Gm/Ns 200 Ml) 1 gm in 200 mls @ 166.7 mls/hr IVPB Q24H [facility] PRN Reason: Protocol Stop: 11/02/17 18:01 Last Admin: 10/30/17 18:34 Dose: 166.7 mls/hr Cefepime HCl 2 gm/ Sodium (Chloride) 100 mls @ 200 mls/hr IVPB Q12H [facility] PRN Reason: Protocol Stop: 11/04/17 00:01 Last Admin: 10/31/17 00:41 Dose: 200 mls/hr Multivitamins (Hexavitamin) 1 tab PO DAILY [facility] Last Admin: 10/31/17 09:58 Dose: 1 tab Ondansetron HCl (Zofran Inj) 4 mg IVP ONCE PRN PRN Reason: Nausea/Vomiting Oxycodone/Acetaminophen (Percocet 5/325 Mg Tab) 2 tab PO Q4H PRN PRN Reason: Pain, severe (8-10) Stop: 10/31/17 18:50 Last Admin: 10/30/17 18:40 Dose: 2 tab - Labs Labs: 10/31/17 08:23 10/31/17 08:23 PT 13.9 SECONDS (9.7-12.2) H 10/27/17 07:11 INR 1.2 10/27/17 07:11 APTT 33 SECONDS (21-34) 10/27/17 07:11 - Extremities Exam Additional comments: left hip dressing saturated with dark serous fluid thigh soft, mild swelling +ROM ankle/toes, sensation intact +venodynes +DP?PT pulses betadine wet to dry reapplied Assessment and Plan (1) Status post total hip replacement, right Assessment & Plan: s/p I&D and poly change monitor progress, patient informed of potential for possibility of need for explant if fails treatment expected increased drainage due to antibiotic beads dressing changes q shift, betadine wet to dry VTE proph PT/OT antibiotics x 6 weeks, Dr. Dong's note appreciated d/w Dr. Metcalf, agrees with above Status: Acute
[2017-10-31 14:16] LABS: INR 1.2; PROTHROMBIN TIME 13.8 SECONDS (9.7-12.2)
[2017-10-31] MEDS: Oxycodone/Acetaminophen 5/325 mg Tab PO PRN (15:02)
--- NOTE | 2017-10-31 18:19 | CP.PCM.PN ---
Subjective - Date & Time of Evaluation Date of Evaluation: 10/31/17 Time of Evaluation: 14:00 Objective - Vital Signs/Intake and Output Vital Signs (last 24 hours): Temp Pulse Resp BP Pulse Ox 97.9 F 56 L 18 94/44 L 99 10/31/17 15:20 10/31/17 15:20 10/31/17 15:20 10/31/17 15:20 10/31/17 15:20 Intake and Output: 10/31/17 10/31/17 06:59 18:59 Intake Total 1125 Output Total 3100 Balance -1975 - Medications Medications: Current Medications Acetaminophen (Tylenol 325mg Tab) 650 mg PO Q4 PRN PRN Reason: Fever >100.4 F Carbidopa/Levodopa (Sinemet) 1 tab PO TID [facility] Last Admin: 10/31/17 13:24 Dose: 1 tab Docusate Sodium (Colace) 100 mg PO BID [facility] Last Admin: 10/31/17 09:59 Dose: Not Given Docusate Sodium (Colace) 100 mg PO BID [facility] Last Admin: 10/31/17 09:59 Dose: Not Given Enoxaparin Sodium (Lovenox) 40 mg SC DAILY [facility] Last Admin: 10/31/17 09:59 Dose: 40 mg Ergocalciferol (Drisdol 50,000 Intl Units Cap) 1 cap PO Q7D [facility] Last Admin: 10/25/17 11:09 Dose: 1 cap Ferric Sodium Gluconate Complex (Ferrlecit) 125 mg IVPB DAILY [facility] Stop: 11/01/17 10:01 Last Admin: 10/31/17 09:59 Dose: 125 mg Vancomycin/Sodium Chloride (Vancomycin 1 Gm/Ns 200 Ml) 1 gm in 200 mls @ 166.7 mls/hr IVPB Q24H [facility] PRN Reason: Protocol Stop: 11/02/17 18:01 Last Admin: 10/30/17 18:34 Dose: 166.7 mls/hr Cefepime HCl 2 gm/ Sodium (Chloride) 100 mls @ 200 mls/hr IVPB Q12H [facility] PRN Reason: Protocol Stop: 11/04/17 00:01 Last Admin: 10/31/17 13:23 Dose: 200 mls/hr Multivitamins (Hexavitamin) 1 tab PO DAILY [facility] Last Admin: 10/31/17 09:58 Dose: 1 tab Ondansetron HCl (Zofran Inj) 4 mg IVP ONCE PRN PRN Reason: Nausea/Vomiting Oxycodone/Acetaminophen (Percocet 5/325 Mg Tab) 2 tab PO Q4H PRN PRN Reason: Pain, severe (8-10) Stop: 10/31/17 18:50 Last Admin: 10/31/17 15:02 Dose: 2 tab - Labs Labs: 10/31/17 08:23 10/31/17 08:23 PT 13.8 SECONDS (9.7-12.2) H 10/31/17 13:59 INR 1.2 10/31/17 13:59 APTT 39 SECONDS (21-34) H 10/31/17 13:59 Assessment and Plan - Assessment and Plan (Free Text) Assessment: A/P 72 yr old male admitted with hip pain and fever hgb improved qith 2 units of PRBC surgical site still draing with moderate amt of blood D/w Jovanni DOWNING will monitor for bleeding , until the drainage less D/W Dr. Sintia Dong, need 6 weeks of cefepime D/w Dr. Walsh keep f/c in and f/u with his office out pt for cystoscopy when medically stable The above plan discussed with Dr. Rodriguez
[2017-10-31] MEDS: Vancomycin 1 gm/NS 200 ml 1 GM/200 ML BAG IVPB SCH (18:55)
--- NOTE | 2017-10-31 22:35 | CP.PCM.PN ---
Subjective - Date & Time of Evaluation Date of Evaluation: 10/31/17 Time of Evaluation: 22:35 - Subjective Subjective: CHIEF COMPLAINTS TODAY : afebrile, postopt. pain feeling better after 2 units PRBC transfusion overnight h/h stable now S/P OR 10/28/17 Operation Performed: Revision R THR- component exchange- acetabulum/ femoral head. ROS. HEENT : N. Resp : No cough, wheezing ,pleuritic CP ,or hemoptysis Cardio : No anginal CP, PND, orthopnea, palpitation GI : No abd.pain, n/v ,diarrhea or GI bleeding . 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 Musculoskel : No joint swelling , Derm : No rash Psych : Normal affect. Ext : RT HIP ANT UPPER THIGH DRESSING C/D/I PE. Pt. is AAO, in no distress. V.S As noted in the chart Head ,ear nose,throat and eyes : Normal. Neck : Supple with normal carotids. Lungs: Clear air entry. Heart : S1 & S2 normal with S4. No murmur. Abd : Soft non tender with normal bowel sounds. Neuro : Moves all ext. with no localized deficit. Ext : RT HIP ANT UPPER THIGH DRESSING +VE OOZING SERPSANGUINOUS DRAINAGE Derm : No rashes or decubitus ulcer. LABS/RADIOLOGY: rt hip cultures 10/28/17 +ve e. coli RT HIPCULTURE 10/24/17 E.COLI S CEFEPIME,CIPRO, CEFAZOLIN. BLOOD CULTURE 1:2 SETS GPC-SCN 1:2 SETS ? CONTAMINANT ASSESSMENT/PLAN : CONTINUE IV ABX.. START IV CEFEPIME 2GM IVPB [id number] 10/31/17 ONE DOSE GENTAMICIN 140MG X1 STAT 10/30/17 CONTINUE iv VANCOMYCIN 1 G ONCE A DAY DAILY FOR NOW. CASE DISCUSSED WITH NURSE- PRACTITIONER, MS CLANCY, PATIENT WILL NEED 6 WEEKS OF iv CEFEPIME. MONITOR RENAL FUNCTIONS CLOSELY. PICC LINE CARE CYNDY PER ATTENDING. LWC PER ORTHO. Objective - Vital Signs/Intake and Output Vital Signs (last 24 hours): Temp Pulse Resp BP Pulse Ox 97.9 F 56 L 18 94/44 L 99 10/31/17 15:20 10/31/17 15:20 10/31/17 15:20 10/31/17 15:20 10/31/17 15:20 - Medications Medications: Current Medications Acetaminophen (Tylenol 325mg Tab) 650 mg PO Q4 PRN PRN Reason: Fever >100.4 F Carbidopa/Levodopa (Sinemet) 1 tab PO TID [facility] Last Admin: 10/31/17 18:54 Dose: 1 tab Docusate Sodium (Colace) 100 mg PO BID [facility] Last Admin: 10/31/17 18:48 Dose: Not Given Docusate Sodium (Colace) 100 mg PO BID [facility] Last Admin: 10/31/17 18:48 Dose: Not Given Enoxaparin Sodium (Lovenox) 40 mg SC DAILY [facility] Last Admin: 10/31/17 09:59 Dose: 40 mg Ergocalciferol (Drisdol 50,000 Intl Units Cap) 1 cap PO Q7D [facility] Last Admin: 10/25/17 11:09 Dose: 1 cap Ferric Sodium Gluconate Complex (Ferrlecit) 125 mg IVPB DAILY [facility] Stop: 11/01/17 10:01 Last Admin: 10/31/17 09:59 Dose: 125 mg Vancomycin/Sodium Chloride (Vancomycin 1 Gm/Ns 200 Ml) 1 gm in 200 mls @ 166.7 mls/hr IVPB Q24H [facility] PRN Reason: Protocol Stop: 11/02/17 18:01 Last Admin: 10/31/17 18:55 Dose: 166.7 mls/hr Cefepime HCl 2 gm/ Sodium (Chloride) 100 mls @ 200 mls/hr IVPB Q12H [facility] PRN Reason: Protocol Stop: 11/04/17 00:01 Last Admin: 10/31/17 13:23 Dose: 200 mls/hr Multivitamins (Hexavitamin) 1 tab PO DAILY [facility] Last Admin: 10/31/17 09:58 Dose: 1 tab Ondansetron HCl (Zofran Inj) 4 mg IVP ONCE PRN PRN Reason: Nausea/Vomiting - Labs Labs: 10/31/17 08:23 10/31/17 08:23 PT 13.8 SECONDS (9.7-12.2) H 10/31/17 13:59 INR 1.2 10/31/17 13:59 APTT 39 SECONDS (21-34) H 10/31/17 13:59 Assessment and Plan (1) Pneumonia Status: Acute (2) Fever Status: Acute (3) Hip pain Status: Acute (4) Anemia Status: Acute (5) Fracture of right hip Status: Acute (6) Renal insufficiency Status: Acute
--- NOTE | 2017-10-31 23:55 | CP.PCM.PN ---
Subjective - Date & Time of Evaluation Date of Evaluation: 10/31/17 Time of Evaluation: 18:00 - Subjective Subjective: Pt seen and examined Objective - Vital Signs/Intake and Output Vital Signs (last 24 hours): Temp Pulse Resp BP Pulse Ox 97.9 F 58 L 18 94/44 L 99 10/31/17 15:20 10/31/17 17:30 10/31/17 15:20 10/31/17 15:20 10/31/17 15:20 - Medications Medications: Current Medications Acetaminophen (Tylenol 325mg Tab) 650 mg PO Q4 PRN PRN Reason: Fever >100.4 F Carbidopa/Levodopa (Sinemet) 1 tab PO TID [facility] Last Admin: 10/31/17 18:54 Dose: 1 tab Docusate Sodium (Colace) 100 mg PO BID [facility] Last Admin: 10/31/17 18:48 Dose: Not Given Docusate Sodium (Colace) 100 mg PO BID [facility] Last Admin: 10/31/17 18:48 Dose: Not Given Enoxaparin Sodium (Lovenox) 40 mg SC DAILY [facility] Last Admin: 10/31/17 09:59 Dose: 40 mg Ergocalciferol (Drisdol 50,000 Intl Units Cap) 1 cap PO Q7D [facility] Last Admin: 10/25/17 11:09 Dose: 1 cap Ferric Sodium Gluconate Complex (Ferrlecit) 125 mg IVPB DAILY [facility] Stop: 11/01/17 10:01 Last Admin: 10/31/17 09:59 Dose: 125 mg Vancomycin/Sodium Chloride (Vancomycin 1 Gm/Ns 200 Ml) 1 gm in 200 mls @ 166.7 mls/hr IVPB Q24H [facility] PRN Reason: Protocol Stop: 11/02/17 18:01 Last Admin: 10/31/17 18:55 Dose: 166.7 mls/hr Cefepime HCl 2 gm/ Sodium (Chloride) 100 mls @ 200 mls/hr IVPB Q12H [facility] PRN Reason: Protocol Stop: 11/04/17 00:01 Last Admin: 10/31/17 13:23 Dose: 200 mls/hr Multivitamins (Hexavitamin) 1 tab PO DAILY [facility] Last Admin: 10/31/17 09:58 Dose: 1 tab Ondansetron HCl (Zofran Inj) 4 mg IVP ONCE PRN PRN Reason: Nausea/Vomiting - Labs Labs: 10/31/17 08:23 10/31/17 08:23 PT 13.8 SECONDS (9.7-12.2) H 10/31/17 13:59 INR 1.2 10/31/17 13:59 APTT 39 SECONDS (21-34) H 10/31/17 13:59 Assessment and Plan (1) Parkinson disease Status: Acute (2) Anemia Status: Acute (3) Displaced fracture of right femoral neck Status: Acute
[2017-11-01] MEDS: Cefepime 2 GM in Sodium Chloride 0.9% 100 ML IVPB SCH ×3 (00:15→23:51)
[2017-11-01] MEDS ORDERED: oxyCODONE 10 mg Immediate Release Tab PO STA (00:40)
[2017-11-01 07:19] LABS: BASO % 0.8 % (0.0-2.0); EOS # 0.5 K/uL (0.0-0.7); EOS % 9.3 % (0.0-4.0); HEMOGLOBIN 9.8 g/dL (12.0-18.0); LYMPH # 0.9 K/uL (1.0-4.3); LYMPH % 18.8 % (20.0-40.0); MEAN CELL VOLUME 91.6 fL (80.0-94.0); MEAN CORPUSCULAR HGB CONC 34.9 g/dL (33.0-37.0); MEAN PLATELET VOLUME 7.6 fL (7.2-11.7); MONO # 0.5 K/uL (0.0-0.8); MONO % 9.7 % (0.0-10.0); NEUT % 61.4 % (50.0-75.0); NRBC % 0.1 % (0.0-2.0); RBC 3.06 Mil/uL (4.40-5.90); RED CELL DISTRIBUTION WIDTH 15.6 % (11.5-14.5); WHITE BLOOD COUNT 4.9 K/uL (4.8-10.8)
[2017-11-01 07:21] LABS: BLOOD UREA NITROGEN 11 mg/dL (9-20); CALCIUM 7.8 mg/dl (8.6-10.4); GFR AFRICAN-AMERICAN > 60; GFR NON-AFRICAN AMERICAN > 60
--- NOTE | 2017-11-01 10:03 | CP.PCM.PN ---
Subjective - Date & Time of Evaluation Date of Evaluation: 11/01/17 Time of Evaluation: 10:01 - Subjective Subjective: Patient with improved participation in PT today. No new complaints. Objective - Vital Signs/Intake and Output Vital Signs (last 24 hours): Temp Pulse Resp BP Pulse Ox 97.8 F 70 20 104/55 L 98 10/31/17 23:55 11/01/17 08:32 10/31/17 23:55 10/31/17 23:55 10/31/17 23:55 Intake and Output: 11/01/17 11/01/17 06:59 18:59 Output Total 1400 Balance -1400 - Medications Medications: Current Medications Acetaminophen (Tylenol 325mg Tab) 650 mg PO Q4 PRN PRN Reason: Fever >100.4 F Carbidopa/Levodopa (Sinemet) 1 tab PO TID [facility] Last Admin: 10/31/17 18:54 Dose: 1 tab Docusate Sodium (Colace) 100 mg PO BID [facility] Last Admin: 10/31/17 18:48 Dose: Not Given Docusate Sodium (Colace) 100 mg PO BID [facility] Last Admin: 10/31/17 18:48 Dose: Not Given Enoxaparin Sodium (Lovenox) 40 mg SC DAILY [facility] Last Admin: 10/31/17 09:59 Dose: 40 mg Ergocalciferol (Drisdol 50,000 Intl Units Cap) 1 cap PO Q7D [facility] Last Admin: 10/25/17 11:09 Dose: 1 cap Ferric Sodium Gluconate Complex (Ferrlecit) 125 mg IVPB DAILY [facility] Stop: 11/01/17 10:01 Last Admin: 10/31/17 09:59 Dose: 125 mg Vancomycin/Sodium Chloride (Vancomycin 1 Gm/Ns 200 Ml) 1 gm in 200 mls @ 166.7 mls/hr IVPB Q24H [facility] PRN Reason: Protocol Stop: 11/02/17 18:01 Last Admin: 10/31/17 18:55 Dose: 166.7 mls/hr Cefepime HCl 2 gm/ Sodium (Chloride) 100 mls @ 200 mls/hr IVPB Q12H [facility] PRN Reason: Protocol Stop: 11/04/17 00:01 Last Admin: 11/01/17 00:15 Dose: 200 mls/hr Multivitamins (Hexavitamin) 1 tab PO DAILY [facility] Last Admin: 10/31/17 09:58 Dose: 1 tab Ondansetron HCl (Zofran Inj) 4 mg IVP ONCE PRN PRN Reason: Nausea/Vomiting - Labs Labs: 11/01/17 06:56 11/01/17 06:56 PT 13.8 SECONDS (9.7-12.2) H 10/31/17 13:59 INR 1.2 10/31/17 13:59 APTT 39 SECONDS (21-34) H 10/31/17 13:59 - Extremities Exam Additional comments: left hip dressing saturated with dark serous fluid at proximal aspect of wound, large amount of drainage (last changed 3 hours prior) thigh soft, mild swelling +ROM ankle/toes, sensation intact +venodynes +DP/PT pulses betadine wet to dry reapplied Assessment and Plan (1) Status post total hip replacement, right Assessment & Plan: POD#4 s/p I&D and poly change monitor progress, patient informed of potential for possibility of need for explant if fails treatment expected increased drainage due to antibiotic beads dressing changes q shift, betadine wet to dry VTE proph PT/OT antibiotics x 6 weeks, Dr. Dong's note appreciated d/w Dr. Metcalf, agrees with above Status: Acute
[2017-11-01] MEDS: Ergocalciferol 50,000 Intl Units Cap PO SCH (11:01)
[2017-11-01] MEDS: Multiple Vitamins Tab PO SCH (11:02)
[2017-11-01] MEDS: Enoxaparin 40 mg Syringe SC SCH (11:02)
[2017-11-01] MEDS: Ferric Sodium Gluconat Complex 62.5 mg/5 ml Vial IVPB SCH (11:02)
[2017-11-01] MEDS: Vancomycin 1 gm/NS 200 ml 1 GM/200 ML BAG IVPB SCH (19:22)
--- NOTE | 2017-11-01 19:59 | CP.PCM.PN ---
Subjective - Date & Time of Evaluation Date of Evaluation: 11/01/17 Time of Evaluation: 19:59 - Subjective Subjective: CHIEF COMPLAINTS TODAY : # POD : 4 afebrile, feeling STRONG S/P 2 units PRBC transfusion 10/30 h/h stable now S/P OR 10/28/17 Operation Performed: Revision R THR- component exchange- acetabulum/ femoral head. ROS. HEENT : N. Resp : No cough, wheezing ,pleuritic CP ,or hemoptysis Cardio : No anginal CP, PND, orthopnea, palpitation GI : No abd.pain, n/v ,diarrhea or GI bleeding . 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 Musculoskel : No joint swelling , Derm : No rash Psych : Normal affect. Ext : RT HIP ANT UPPER THIGH DRESSING C/D/I PE. Pt. is AAO, in no distress. V.S As noted in the chart Head ,ear nose,throat and eyes : Normal. Neck : Supple with normal carotids. Lungs: Clear air entry. Heart : S1 & S2 normal with S4. No murmur. Abd : Soft non tender with normal bowel sounds. Neuro : Moves all ext. with no localized deficit. Ext : RT HIP ANT UPPER THIGH DRESSING +VE OOZING SERPSANGUINOUS DRAINAGE Derm : No rashes or decubitus ulcer. LABS/RADIOLOGY: H/H 9.8/28.0 rt hip cultures 10/28/17 +ve e. coli RT HIPCULTURE 10/24/17 E.COLI S CEFEPIME,CIPRO, CEFAZOLIN. BLOOD CULTURE 1:2 SETS [facility]-SCN 1:2 SETS ? CONTAMINANT ASSESSMENT/PLAN : CONTINUE IV ABX.. CONTINUE IV CEFEPIME 2GM IVPB [id number] 10/31/17 ONE DOSE GENTAMICIN 140MG X1 STAT 10/30/17 DC IV VANCOMYCIN TODAY 11/01/17 CASE DISCUSSED WITH NURSE- PRACTITIONER, MS CLANCY, PATIENT WILL NEED 6 WEEKS OF iv CEFEPIME. MONITOR RENAL FUNCTIONS CLOSELY. PICC LINE CARE CYNDY PER ATTENDING. LWC /PT PER ORTHO. Objective - Vital Signs/Intake and Output Vital Signs (last 24 hours): Temp Pulse Resp BP Pulse Ox 98.1 F 64 18 96/52 L 99 11/01/17 15:15 11/01/17 15:15 11/01/17 15:15 11/01/17 15:15 11/01/17 15:15 Intake and Output: 11/01/17 11/02/17 18:59 06:59 Intake Total 250 Output Total 900 Balance -650 - Medications Medications: Current Medications Acetaminophen (Tylenol 325mg Tab) 650 mg PO Q4 PRN PRN Reason: Fever >100.4 F Carbidopa/Levodopa (Sinemet) 1 tab PO TID [facility] Last Admin: 11/01/17 18:54 Dose: 1 tab Docusate Sodium (Colace) 100 mg PO BID [facility] Last Admin: 11/01/17 18:54 Dose: Not Given Docusate Sodium (Colace) 100 mg PO BID [facility] Last Admin: 11/01/17 18:53 Dose: 100 mg Enoxaparin Sodium (Lovenox) 40 mg SC DAILY [facility] Last Admin: 11/01/17 11:02 Dose: 40 mg Ergocalciferol (Drisdol 50,000 Intl Units Cap) 1 cap PO Q7D [facility] Last Admin: 11/01/17 11:01 Dose: 1 cap Vancomycin/Sodium Chloride (Vancomycin 1 Gm/Ns 200 Ml) 1 gm in 200 mls @ 166.7 mls/hr IVPB Q24H [facility] PRN Reason: Protocol Stop: 11/02/17 18:01 Last Admin: 11/01/17 19:22 Dose: 166.7 mls/hr Cefepime HCl 2 gm/ Sodium (Chloride) 100 mls @ 200 mls/hr IVPB Q12H [facility] PRN Reason: Protocol Stop: 11/04/17 00:01 Last Admin: 11/01/17 12:23 Dose: 200 mls/hr Multivitamins (Hexavitamin) 1 tab PO DAILY [facility] Last Admin: 11/01/17 11:02 Dose: 1 tab Ondansetron HCl (Zofran Inj) 4 mg IVP ONCE PRN PRN Reason: Nausea/Vomiting - Labs Labs: 11/01/17 06:56 11/01/17 06:56 PT 13.8 SECONDS (9.7-12.2) H 10/31/17 13:59 INR 1.2 10/31/17 13:59 APTT 39 SECONDS (21-34) H 10/31/17 13:59 Assessment and Plan (1) Pneumonia Status: Acute (2) Fever Status: Acute (3) Hip pain Status: Acute (4) Anemia Status: Acute (5) Fracture of right hip Status: Acute (6) Renal insufficiency Status: Acute
[2017-11-01] MEDS ORDERED: Oxycodone/Acetaminophen 5/325 mg Tab PO ONE (22:54)
--- NOTE | 2017-11-02 09:48 | CP.PCM.PN ---
Objective - Vital Signs/Intake and Output Vital Signs (last 24 hours): Temp Pulse Resp BP Pulse Ox 97.9 F 58 L 20 126/74 98 11/02/17 07:30 11/02/17 07:30 11/02/17 07:30 11/02/17 07:30 11/02/17 07:30 Intake and Output: 11/02/17 11/02/17 06:59 18:59 Output Total 950 Balance -950 - Medications Medications: Current Medications Acetaminophen (Tylenol 325mg Tab) 650 mg PO Q4 PRN PRN Reason: Fever >100.4 F Carbidopa/Levodopa (Sinemet) 1 tab PO TID [facility] Last Admin: 11/01/17 18:54 Dose: 1 tab Docusate Sodium (Colace) 100 mg PO BID [facility] Last Admin: 11/01/17 18:54 Dose: Not Given Docusate Sodium (Colace) 100 mg PO BID [facility] Last Admin: 11/02/17 08:48 Dose: Not Given Enoxaparin Sodium (Lovenox) 40 mg SC DAILY [facility] Last Admin: 11/01/17 11:02 Dose: 40 mg Ergocalciferol (Drisdol 50,000 Intl Units Cap) 1 cap PO Q7D [facility] Last Admin: 11/01/17 11:01 Dose: 1 cap Cefepime HCl 2 gm/ Sodium (Chloride) 100 mls @ 200 mls/hr IVPB Q12H [facility] PRN Reason: Protocol Stop: 11/04/17 00:01 Last Admin: 11/01/17 23:51 Dose: 200 mls/hr Multivitamins (Hexavitamin) 1 tab PO DAILY [facility] Last Admin: 11/01/17 11:02 Dose: 1 tab Ondansetron HCl (Zofran Inj) 4 mg IVP ONCE PRN PRN Reason: Nausea/Vomiting - Labs Labs: 11/01/17 06:56 11/01/17 06:56 PT 13.8 SECONDS (9.7-12.2) H 10/31/17 13:59 INR 1.2 10/31/17 13:59 APTT 39 SECONDS (21-34) H 10/31/17 13:59 Assessment and Plan (1) Parkinson disease Status: Acute (2) Anemia Status: Acute (3) Displaced fracture of right femoral neck Status: Acute
--- NOTE | 2017-11-02 09:48 | CP.PCM.PN ---
Subjective - Date & Time of Evaluation Date of Evaluation: 11/01/17 Time of Evaluation: 18:00 - Subjective Subjective: Pt seen and examined, is post op today, no nausea, vomitting Objective - Vital Signs/Intake and Output Vital Signs (last 24 hours): Temp Pulse Resp BP Pulse Ox 97.9 F 58 L 20 126/74 98 11/02/17 07:30 11/02/17 07:30 11/02/17 07:30 11/02/17 07:30 11/02/17 07:30 Intake and Output: 11/02/17 11/02/17 06:59 18:59 Output Total 950 Balance -950 - Medications Medications: Current Medications Acetaminophen (Tylenol 325mg Tab) 650 mg PO Q4 PRN PRN Reason: Fever >100.4 F Carbidopa/Levodopa (Sinemet) 1 tab PO TID [facility] Last Admin: 11/01/17 18:54 Dose: 1 tab Docusate Sodium (Colace) 100 mg PO BID [facility] Last Admin: 11/01/17 18:54 Dose: Not Given Docusate Sodium (Colace) 100 mg PO BID [facility] Last Admin: 11/02/17 08:48 Dose: Not Given Enoxaparin Sodium (Lovenox) 40 mg SC DAILY [facility] Last Admin: 11/01/17 11:02 Dose: 40 mg Ergocalciferol (Drisdol 50,000 Intl Units Cap) 1 cap PO Q7D [facility] Last Admin: 11/01/17 11:01 Dose: 1 cap Cefepime HCl 2 gm/ Sodium (Chloride) 100 mls @ 200 mls/hr IVPB Q12H [facility] PRN Reason: Protocol Stop: 11/04/17 00:01 Last Admin: 11/01/17 23:51 Dose: 200 mls/hr Multivitamins (Hexavitamin) 1 tab PO DAILY [facility] Last Admin: 11/01/17 11:02 Dose: 1 tab Ondansetron HCl (Zofran Inj) 4 mg IVP ONCE PRN PRN Reason: Nausea/Vomiting - Labs Labs: 11/01/17 06:56 11/01/17 06:56 PT 13.8 SECONDS (9.7-12.2) H 10/31/17 13:59 INR 1.2 10/31/17 13:59 APTT 39 SECONDS (21-34) H 10/31/17 13:59 - Constitutional Appears: No Acute Distress - Head Exam Head Exam: ATRAUMATIC, NORMAL INSPECTION, NORMOCEPHALIC - Eye Exam Eye Exam: EOMI, Normal appearance, PERRL Pupil Exam: NORMAL ACCOMODATION, PERRL - ENT Exam ENT Exam: Mucous Membranes Moist, Normal Exam - Respiratory Exam Respiratory Exam: Clear to Ausculation Bilateral, NORMAL BREATHING PATTERN - Cardiovascular Exam Cardiovascular Exam: REGULAR RHYTHM, +S1, +S2. absent: Murmur - GI/Abdominal Exam GI & Abdominal Exam: Soft, Normal Bowel Sounds. absent: Tenderness Assessment and Plan (1) Parkinson disease Status: Acute (2) Anemia Status: Acute (3) Displaced fracture of right femoral neck Status: Acute
[2017-11-02] MEDS: Multiple Vitamins Tab PO SCH (10:32)
[2017-11-02] MEDS: Enoxaparin 40 mg Syringe SC SCH (10:32)
--- NOTE | 2017-11-02 12:59 | CP.PCM.PN ---
Subjective - Date & Time of Evaluation Date of Evaluation: 11/02/17 Time of Evaluation: 12:59 - Subjective Subjective: CHIEF COMPLAINTS TODAY : # POD : 5 afebrile, NO ACUTE EVENTS OVERNIGHT S/P OR 10/28/17 Operation Performed: Revision R THR- component exchange- acetabulum/ femoral head. ROS. HEENT : N. Resp : No cough, wheezing ,pleuritic CP ,or hemoptysis Cardio : No anginal CP, PND, orthopnea, palpitation GI : No abd.pain, n/v ,diarrhea or GI bleeding . 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 Musculoskel : No joint swelling , Derm : No rash Psych : Normal affect. Ext : RT HIP ANT UPPER THIGH DRESSING C/D/I PE. Pt. is AAO, in no distress. V.S As noted in the chart Head ,ear nose,throat and eyes : Normal. Neck : Supple with normal carotids. Lungs: Clear air entry. Heart : S1 & S2 normal with S4. No murmur. Abd : Soft non tender with normal bowel sounds. Neuro : Moves all ext. with no localized deficit. Ext : RT HIP ANT UPPER THIGH DRESSING +VE OOZING SEROSANGUINOUS DRAINAGE Derm : No rashes or decubitus ulcer. LABS/RADIOLOGY: H/H 9.8/28.0 rt hip cultures 10/28/17 +ve e. coli RT HIPCULTURE 10/24/17 E.COLI S CEFEPIME,CIPRO, CEFAZOLIN. BLOOD CULTURE 1:2 SETS GPC-SCN 1:2 SETS ? CONTAMINANT ASSESSMENT/PLAN : CONTINUE IV ABX.. CONTINUE IV CEFEPIME 2GM IVPB [id number] 10/31/17 ONE DOSE GENTAMICIN 140MG X1 STAT 10/30/17 PATIENT WILL NEED 6 WEEKS OF iv CEFEPIME. MONITOR RENAL FUNCTIONS CLOSELY. PICC LINE CARE CYNDY PER ATTENDING. LWC /PT PER ORTHO. Objective - Vital Signs/Intake and Output Vital Signs (last 24 hours): Temp Pulse Resp BP Pulse Ox 97.9 F 58 L 20 126/74 98 11/02/17 07:30 11/02/17 07:30 11/02/17 07:30 11/02/17 07:30 11/02/17 07:30 Intake and Output: 04/28/18 04/28/18 06:59 18:59 Output Total 950 Balance -950 - Medications Medications: Current Medications Acetaminophen (Tylenol 325mg Tab) 650 mg PO Q4 PRN PRN Reason: Fever >100.4 F Carbidopa/Levodopa (Sinemet) 1 tab PO TID [facility] Last Admin: 11/02/17 10:33 Dose: 1 tab Docusate Sodium (Colace) 100 mg PO BID [facility] Last Admin: 11/02/17 10:32 Dose: 100 mg Docusate Sodium (Colace) 100 mg PO BID [facility] Last Admin: 11/02/17 10:18 Dose: Not Given Enoxaparin Sodium (Lovenox) 40 mg SC DAILY [facility] Last Admin: 11/02/17 10:32 Dose: 40 mg Ergocalciferol (Drisdol 50,000 Intl Units Cap) 1 cap PO Q7D [facility] Last Admin: 11/01/17 11:01 Dose: 1 cap Cefepime HCl 2 gm/ Sodium (Chloride) 100 mls @ 200 mls/hr IVPB Q12H [facility] PRN Reason: Protocol Stop: 11/04/17 00:01 Last Admin: 11/01/17 23:51 Dose: 200 mls/hr Multivitamins (Hexavitamin) 1 tab PO DAILY [facility] Last Admin: 11/02/17 10:32 Dose: 1 tab Ondansetron HCl (Zofran Inj) 4 mg IVP ONCE PRN PRN Reason: Nausea/Vomiting - Labs Labs: 11/01/17 06:56 11/01/17 06:56 PT 13.8 SECONDS (9.7-12.2) H 10/31/17 13:59 INR 1.2 10/31/17 13:59 APTT 39 SECONDS (21-34) H 10/31/17 13:59 Assessment and Plan (1) Pneumonia Status: Acute (2) Fever Status: Acute (3) Hip pain Status: Acute (4) Anemia Status: Acute (5) Fracture of right hip Status: Acute (6) Renal insufficiency Status: Acute
[2017-11-02] MEDS: Cefepime 2 GM in Sodium Chloride 0.9% 100 ML IVPB SCH (13:48)
[2017-11-02] MEDS: Oxycodone/Acetaminophen 5/325 mg Tab PO PRN (13:48)
[2017-11-03] MEDS: Cefepime 2 GM in Sodium Chloride 0.9% 100 ML IVPB SCH ×2 (00:04→23:50)
[2017-11-03 06:43] LABS: HEMOGLOBIN 11.3 g/dL (12.0-18.0); MEAN CELL VOLUME 93.2 fL (80.0-94.0); MEAN CORPUSCULAR HGB CONC 34.3 g/dL (33.0-37.0); MEAN PLATELET VOLUME 7.4 fL (7.2-11.7); RBC 3.53 Mil/uL (4.40-5.90); RED CELL DISTRIBUTION WIDTH 15.9 % (11.5-14.5); WHITE BLOOD COUNT 7.9 K/uL (4.8-10.8)
[2017-11-03 06:58] LABS: BLOOD UREA NITROGEN 12 mg/dL (9-20); CALCIUM 8.3 mg/dl (8.6-10.4); GFR AFRICAN-AMERICAN > 60; GFR NON-AFRICAN AMERICAN > 60
[2017-11-03] MEDS: Enoxaparin 40 mg Syringe SC SCH (10:01)
[2017-11-03] MEDS: Multiple Vitamins Tab PO SCH (10:01)
[2017-11-03] MEDS: Oxycodone/Acetaminophen 5/325 mg Tab PO PRN (21:15)
--- NOTE | 2017-11-04 00:53 | CP.PCM.PN ---
Subjective - Date & Time of Evaluation Date of Evaluation: 11/03/17 Time of Evaluation: 18:40 - Subjective Subjective: Pt seen and examined at bedside Objective - Vital Signs/Intake and Output Vital Signs (last 24 hours): Temp Pulse Resp BP Pulse Ox 98.2 F 65 20 113/65 98 11/03/17 23:45 11/03/17 23:45 11/03/17 23:45 11/03/17 23:45 11/03/17 23:45 Intake and Output: 11/03/17 11/04/17 18:59 06:59 Intake Total 240 Output Total 200 Balance 40 - Medications Medications: Current Medications Acetaminophen (Tylenol 325mg Tab) 650 mg PO Q4 PRN PRN Reason: Fever >100.4 F Carbidopa/Levodopa (Sinemet) 1 tab PO TID [facility] Last Admin: 11/03/17 17:31 Dose: 1 tab Docusate Sodium (Colace) 100 mg PO BID [facility] Last Admin: 11/03/17 17:31 Dose: 100 mg Enoxaparin Sodium (Lovenox) 40 mg SC DAILY [facility] Last Admin: 11/03/17 10:01 Dose: 40 mg Ergocalciferol (Drisdol 50,000 Intl Units Cap) 1 cap PO Q7D [facility] Last Admin: 11/01/17 11:01 Dose: 1 cap Multivitamins (Hexavitamin) 1 tab PO DAILY [facility] Last Admin: 11/03/17 10:01 Dose: 1 tab Ondansetron HCl (Zofran Inj) 4 mg IVP ONCE PRN PRN Reason: Nausea/Vomiting Oxycodone/Acetaminophen (Percocet 5/325 Mg Tab) 1 tab PO Q6H PRN PRN Reason: Pain, severe (8-10) Stop: 11/05/17 13:23 Last Admin: 11/03/17 21:15 Dose: 1 tab - Labs Labs: 11/03/17 06:38 11/03/17 06:38 PT 13.8 SECONDS (9.7-12.2) H 10/31/17 13:59 INR 1.2 10/31/17 13:59 APTT 39 SECONDS (21-34) H 10/31/17 13:59 Assessment and Plan (1) Parkinson disease Status: Acute (2) Anemia Status: Acute (3) Displaced fracture of right femoral neck Status: Acute
[2017-11-04] MEDS: Oxycodone/Acetaminophen 5/325 mg Tab PO PRN ×2 (09:36→23:56)
[2017-11-04] MEDS: Multiple Vitamins Tab PO SCH (09:37)
[2017-11-04] MEDS: Enoxaparin 40 mg Syringe SC SCH (09:38)
[2017-11-04 12:37] LABS: BASO % 0.4 % (0.0-2.0); EOS # 0.7 K/uL (0.0-0.7); EOS % 8.5 % (0.0-4.0); HEMOGLOBIN 10.6 g/dL (12.0-18.0); LYMPH # 0.6 K/uL (1.0-4.3); LYMPH % 7.9 % (20.0-40.0); MEAN CELL VOLUME 93.2 fL (80.0-94.0); MEAN CORPUSCULAR HEMOGLOBIN 31.5 pg (27.0-31.0); MEAN CORPUSCULAR HGB CONC 33.8 g/dL (33.0-37.0); MEAN PLATELET VOLUME 7.4 fL (7.2-11.7); MONO # 0.6 K/uL (0.0-0.8); MONO % 7.6 % (0.0-10.0); NEUT # 5.8 K/uL (1.8-7.0); NEUT % 75.6 % (50.0-75.0); PLATELET COUNT 405 K/uL (130-400); RBC 3.36 Mil/uL (4.40-5.90); RED CELL DISTRIBUTION WIDTH 15.8 % (11.5-14.5); WHITE BLOOD COUNT 7.7 K/uL (4.8-10.8)
--- NOTE | 2017-11-04 12:40 | CP.PCM.PN ---
Subjective - Date & Time of Evaluation Date of Evaluation: 11/04/17 Time of Evaluation: 12:40 - Subjective Subjective: CHIEF COMPLAINTS TODAY : # POD : 7 afebrile, NO ACUTE EVENTS OVERNIGHT. PT STATES HE IS RESTING. S/P OR 10/28/17 Operation Performed: Revision R THR- component exchange- acetabulum/ femoral head. ROS. HEENT : N. Resp : No cough, wheezing ,pleuritic CP ,or hemoptysis Cardio : No anginal CP, PND, orthopnea, palpitation GI : No abd.pain, n/v ,diarrhea or GI bleeding . FACILITY SERVICE ASSOCIATE : No headache, vertigo, focal deficit. Musculoskel : No joint swelling , Derm : No rash Psych : Normal affect. Ext : RT HIP ANT UPPER THIGH DRESSING C/D/I PE. Pt. is AAO, in no distress. V.S As noted in the chart Head ,ear nose,throat and eyes : Normal. Neck : Supple with normal carotids. Lungs: Clear air entry. Heart : S1 & S2 normal with S4. No murmur. Abd : Soft non tender with normal bowel sounds. Neuro : Moves all ext. with no localized deficit. Ext : RT HIP ANT UPPER THIGH DRESSING +VE Derm : No rashes or decubitus ulcer. LABS/RADIOLOGY: 11/04/17 WBC 7.7 ,H/H 10.6/31.3 rt hip cultures 10/28/17 +ve e. coli RT HIPCULTURE 10/24/17 E.COLI S CEFEPIME,CIPRO, CEFAZOLIN. BLOOD CULTURE 1:2 SETS [facility]-SCN 1:2 SETS ? CONTAMINANT ASSESSMENT/PLAN : CONTINUE IV ABX.. CONTINUE IV CEFEPIME 2GM IVPB S67MLEX 10/31/17 ONE DOSE GENTAMICIN 140MG X1 STAT 10/30/17 PATIENT WILL NEED 6 WEEKS OF iv CEFEPIME. MONITOR RENAL FUNCTIONS CLOSELY. PICC LINE CARE CYNDY PER ATTENDING. LWC /PT PER ORTHO. Objective - Vital Signs/Intake and Output Vital Signs (last 24 hours): Temp Pulse Resp BP Pulse Ox 98.0 F 64 20 128/71 98 11/04/17 08:20 11/04/17 08:20 11/04/17 08:20 11/04/17 08:20 11/04/17 08:20 Intake and Output: 11/04/17 11/04/17 06:59 18:59 Intake Total 240 Output Total 700 Balance -460 - Medications Medications: Current Medications Acetaminophen (Tylenol 325mg Tab) 650 mg PO Q4 PRN PRN Reason: Fever >100.4 F Carbidopa/Levodopa (Sinemet) 1 tab PO TID [facility] Last Admin: 11/04/17 09:38 Dose: 1 tab Docusate Sodium (Colace) 100 mg PO BID [facility] Last Admin: 11/04/17 09:37 Dose: 100 mg Enoxaparin Sodium (Lovenox) 40 mg SC DAILY [facility] Last Admin: 11/04/17 09:38 Dose: 40 mg Ergocalciferol (Drisdol 50,000 Intl Units Cap) 1 cap PO Q7D [facility] Last Admin: 11/01/17 11:01 Dose: 1 cap Cefepime HCl 2 gm/ Sodium (Chloride) 100 mls @ 200 mls/hr IV Q12H [facility] PRN Reason: Protocol Multivitamins (Hexavitamin) 1 tab PO DAILY [facility] Last Admin: 11/04/17 09:37 Dose: 1 tab Ondansetron HCl (Zofran Inj) 4 mg IVP ONCE PRN PRN Reason: Nausea/Vomiting Oxycodone/Acetaminophen (Percocet 5/325 Mg Tab) 1 tab PO Q6H PRN PRN Reason: Pain, severe (8-10) Stop: 11/05/17 13:23 Last Admin: 11/04/17 09:36 Dose: 1 tab - Labs Labs: 11/03/17 06:38 11/03/17 06:38 PT 13.8 SECONDS (9.7-12.2) H 10/31/17 13:59 INR 1.2 10/31/17 13:59 APTT 39 SECONDS (21-34) H 10/31/17 13:59 Assessment and Plan (1) Status post total hip replacement, right Assessment & Plan: Revision R THR- component exchange- acetabulum/ femoral head. 10/28/17 Status: Acute (2) Fever Assessment & Plan: SOURCE OF FEVER RT HIP PROSTHETIC JOINT INFECTION S/P OR AND REMOVAL AND DEBRIDEMENT.10/28/17 ON IV ABX [id number] IVPB [id number] Status: Acute (3) Pneumonia Assessment & Plan: F/U CXR Status: Acute (4) Hip pain Status: Acute (5) Anemia Status: Acute (6) Fracture of right hip Status: Acute (7) Renal insufficiency Status: Acute (8) Parkinson disease Status: Acute
[2017-11-04 12:45] LABS: BLOOD UREA NITROGEN 15 mg/dL (9-20); CALCIUM 8.4 mg/dl (8.6-10.4); GFR AFRICAN-AMERICAN > 60; GFR NON-AFRICAN AMERICAN > 60
[2017-11-04 13:44] LABS: BANDS 1 % (0-2); EOSINOPHIL 9 % (0-4); LYMPHOCYTE 8 % (20-40); MONOCYTE 8 % (0-10); NEUTROPHIL 74 % (50-75); PLATELET ESTIMATE SLIGHTLY INCREASED (NORMAL); TOTAL CELLS COUNTED 100
[2017-11-04 13:46] LABS: OVALOCYTES SLIGHT
[2017-11-04] MEDS: Potassium Chloride 20 mEq ER Tab PO SCH (14:01)
--- NOTE | 2017-11-04 16:11 | CP.PCM.PN ---
Subjective - Date & Time of Evaluation Date of Evaluation: 11/04/17 Time of Evaluation: 16:08 - Subjective Subjective: Patient states he feels better now. He denies new complaints. Objective - Vital Signs/Intake and Output Vital Signs (last 24 hours): Temp Pulse Resp BP Pulse Ox 98.0 F 63 20 128/71 98 11/04/17 08:20 11/04/17 12:21 11/04/17 08:20 11/04/17 08:20 11/04/17 08:20 Intake and Output: 11/04/17 11/04/17 06:59 18:59 Intake Total 240 500 Output Total 700 1000 Balance -460 -500 - Medications Medications: Current Medications Acetaminophen (Tylenol 325mg Tab) 650 mg PO Q4 PRN PRN Reason: Fever >100.4 F Carbidopa/Levodopa (Sinemet) 1 tab PO TID [facility] Last Admin: 11/04/17 14:02 Dose: 1 tab Diphenhydramine HCl (Benadryl) 25 mg PO Q6 [facility] Stop: 11/05/17 06:01 Docusate Sodium (Colace) 100 mg PO BID [facility] Last Admin: 11/04/17 09:37 Dose: 100 mg Enoxaparin Sodium (Lovenox) 40 mg SC DAILY [facility] Last Admin: 11/04/17 09:38 Dose: 40 mg Ergocalciferol (Drisdol 50,000 Intl Units Cap) 1 cap PO Q7D [facility] Last Admin: 11/01/17 11:01 Dose: 1 cap Cefepime HCl 2 gm/ Sodium (Chloride) 100 mls @ 200 mls/hr IV Q12H [facility] PRN Reason: Protocol Last Admin: 11/04/17 14:01 Dose: 200 mls/hr Multivitamins (Hexavitamin) 1 tab PO DAILY [facility] Last Admin: 11/04/17 09:37 Dose: 1 tab Ondansetron HCl (Zofran Inj) 4 mg IVP ONCE PRN PRN Reason: Nausea/Vomiting Oxycodone/Acetaminophen (Percocet 5/325 Mg Tab) 1 tab PO Q6H PRN PRN Reason: Pain, severe (8-10) Stop: 11/05/17 13:23 Last Admin: 11/04/17 09:36 Dose: 1 tab Potassium Chloride (K-Dur 20 Meq Er Tab) 40 meq PO DAILY [facility] Stop: 11/05/17 10:01 Last Admin: 11/04/17 14:01 Dose: 40 meq - Labs Labs: 11/04/17 12:14 11/04/17 12:14 PT 13.8 SECONDS (9.7-12.2) H 10/31/17 13:59 INR 1.2 10/31/17 13:59 APTT 39 SECONDS (21-34) H 10/31/17 13:59 - Extremities Exam Additional comments: Right hip: small amount of serous drainage on dressing with betadine. Now noted on skin 3-4cm area of erythema around entire incision with some noted blisters distally and broken blisters proximal to that. Skin appears irritated with very clear demarcated line where the erythema ends at end of dressing. thigh swelling improving, no further dark red drainage. +ROM ankle/toes, sensation intact, +DP/PT pulses calves sof Domitila eng homans Assessment and Plan (1) Status post total hip replacement, right Assessment & Plan: suspect hypersensitivity reaction to betadine wound cleaned well with saline and telfa/gauze applied benadryl ordered monitor overnight for improvement to skin around incision with betadine held plan for d/c to [facility] tomorrow if wound improves drainage significantly improved over weekend cont VTE proph cont PT/OT d/w Dr. Metcalf, agrees with above Status: Acute
--- NOTE | 2017-11-04 23:27 | CP.PCM.PN ---
Subjective - Date & Time of Evaluation Date of Evaluation: 11/04/17 Time of Evaluation: 17:40 - Subjective Subjective: Pt seen and examined at bedside Pt is doing better, he is on antibiotics left hip fracture wound with infection with E.coli Objective - Vital Signs/Intake and Output Vital Signs (last 24 hours): Temp Pulse Resp BP Pulse Ox 97.9 F 70 18 104/49 L 100 11/04/17 15:51 11/04/17 16:00 11/04/17 15:51 11/04/17 15:51 11/04/17 15:51 Intake and Output: 11/04/17 11/05/17 18:59 06:59 Intake Total 500 600 Output Total 1000 700 Balance -500 -100 - Medications Medications: Current Medications Acetaminophen (Tylenol 325mg Tab) 650 mg PO Q4 PRN PRN Reason: Fever >100.4 F Carbidopa/Levodopa (Sinemet) 1 tab PO TID [facility] Last Admin: 11/04/17 18:28 Dose: 1 tab Diphenhydramine HCl (Benadryl) 25 mg PO Q6 [facility] Stop: 11/05/17 06:01 Last Admin: 11/04/17 18:27 Dose: 25 mg Docusate Sodium (Colace) 100 mg PO BID [facility] Last Admin: 11/04/17 18:27 Dose: 100 mg Enoxaparin Sodium (Lovenox) 40 mg SC DAILY [facility] Last Admin: 11/04/17 09:38 Dose: 40 mg Ergocalciferol (Drisdol 50,000 Intl Units Cap) 1 cap PO Q7D [facility] Last Admin: 11/01/17 11:01 Dose: 1 cap Cefepime HCl 2 gm/ Sodium (Chloride) 100 mls @ 200 mls/hr IV Q12H [facility] PRN Reason: Protocol Last Admin: 11/04/17 14:01 Dose: 200 mls/hr Multivitamins (Hexavitamin) 1 tab PO DAILY [facility] Last Admin: 11/04/17 09:37 Dose: 1 tab Ondansetron HCl (Zofran Inj) 4 mg IVP ONCE PRN PRN Reason: Nausea/Vomiting Oxycodone/Acetaminophen (Percocet 5/325 Mg Tab) 1 tab PO Q6H PRN PRN Reason: Pain, severe (8-10) Stop: 11/05/17 13:23 Last Admin: 11/04/17 09:36 Dose: 1 tab Potassium Chloride (K-Dur 20 Meq Er Tab) 40 meq PO DAILY [facility] Stop: 11/05/17 10:01 Last Admin: 11/04/17 14:01 Dose: 40 meq - Labs Labs: 11/04/17 12:14 11/04/17 12:14 PT 13.8 SECONDS (9.7-12.2) H 10/31/17 13:59 INR 1.2 10/31/17 13:59 APTT 39 SECONDS (21-34) H 10/31/17 13:59 - Constitutional Appears: No Acute Distress - Head Exam Head Exam: ATRAUMATIC, NORMAL INSPECTION, NORMOCEPHALIC - Eye Exam Eye Exam: EOMI, Normal appearance, PERRL Pupil Exam: NORMAL ACCOMODATION, PERRL - ENT Exam ENT Exam: Mucous Membranes Moist, Normal Exam - Respiratory Exam Respiratory Exam: Clear to Ausculation Bilateral, NORMAL BREATHING PATTERN - Cardiovascular Exam Cardiovascular Exam: REGULAR RHYTHM, +S1, +S2. absent: Murmur - GI/Abdominal Exam GI & Abdominal Exam: Soft, Normal Bowel Sounds. absent: Tenderness - Rectal Exam Rectal Exam: Deferred Assessment and Plan (1) Parkinson disease Status: Acute (2) Anemia Status: Acute (3) Displaced fracture of right femoral neck Status: Acute
[2017-11-05 07:09] LABS: BASO % 0.6 % (0.0-2.0); EOS # 0.8 K/uL (0.0-0.7); EOS % 14.2 % (0.0-4.0); HEMOGLOBIN 9.8 g/dL (12.0-18.0); LYMPH # 0.9 K/uL (1.0-4.3); LYMPH % 17.4 % (20.0-40.0); MEAN CORPUSCULAR HEMOGLOBIN 32.2 pg (27.0-31.0); MEAN CORPUSCULAR HGB CONC 34.6 g/dL (33.0-37.0); MEAN PLATELET VOLUME 7.3 fL (7.2-11.7); MONO # 0.5 K/uL (0.0-0.8); MONO % 8.9 % (0.0-10.0); NEUT # 3.2 K/uL (1.8-7.0); NEUT % 58.9 % (50.0-75.0); NRBC % 0.1 % (0.0-2.0); RBC 3.06 Mil/uL (4.40-5.90); RED CELL DISTRIBUTION WIDTH 15.5 % (11.5-14.5); WHITE BLOOD COUNT 5.4 K/uL (4.8-10.8)
[2017-11-05 08:49] VITALS: TEMP 98.1
[2017-11-05 09:01] LABS: BLOOD UREA NITROGEN 16 mg/dL (9-20); CALCIUM 8.5 mg/dl (8.6-10.4); GFR AFRICAN-AMERICAN > 60; GFR NON-AFRICAN AMERICAN > 60
--- NOTE | 2017-11-05 10:04 | RAD ---
Chest x-ray single frontal view History: Congestive heart failure. Comparison: 10/30/2017 Findings: Biapical pleural thickening with upper lobe granulomatous changes. Moderate venous congestion with diffuse increased interstitial lung markings. Right hilar prominence. Patchy increased markings at the lung bases. Tortuous aorta. Degenerative changes in the spine and shoulders. Question calcific tendinopathy of the left proximal humerus. Impression: Biapical pleural thickening with upper lobe granulomatous changes. Moderate venous congestion with diffuse increased interstitial lung markings. Right hilar prominence. Patchy increased markings at the lung bases. Tortuous aorta.
[2017-11-05] MEDS: Multiple Vitamins Tab PO SCH (10:50)
[2017-11-05] MEDS: Enoxaparin 40 mg Syringe SC SCH (10:50)
[2017-11-05] MEDS: Potassium Chloride 20 mEq ER Tab PO SCH (10:50)
--- NOTE | 2017-11-05 11:38 | CP.PCM.PN ---
Subjective - Date & Time of Evaluation Date of Evaluation: 11/05/17 Time of Evaluation: 11:35 - Subjective Subjective: Patient offers no complaints. Hip pain is controlled, PT continues to improve. Objective - Vital Signs/Intake and Output Vital Signs (last 24 hours): Temp Pulse Resp BP Pulse Ox 98.1 F 60 20 104/56 L 98 11/05/17 08:48 11/05/17 08:48 11/05/17 08:48 11/05/17 08:48 11/05/17 08:48 Intake and Output: 11/05/17 11/05/17 06:59 18:59 Intake Total 600 Output Total 1150 Balance -550 - Medications Medications: Current Medications Acetaminophen (Tylenol 325mg Tab) 650 mg PO Q4 PRN PRN Reason: Fever >100.4 F Carbidopa/Levodopa (Sinemet) 1 tab PO TID [facility] Last Admin: 11/05/17 10:50 Dose: 1 tab Docusate Sodium (Colace) 100 mg PO BID [facility] Last Admin: 11/05/17 10:49 Dose: Not Given Enoxaparin Sodium (Lovenox) 40 mg SC DAILY [facility] Last Admin: 11/05/17 10:50 Dose: 40 mg Ergocalciferol (Drisdol 50,000 Intl Units Cap) 1 cap PO Q7D [facility] Last Admin: 11/01/17 11:01 Dose: 1 cap Cefepime HCl 2 gm/ Sodium (Chloride) 100 mls @ 200 mls/hr IV Q12H [facility] PRN Reason: Protocol Last Admin: 11/05/17 01:36 Dose: 200 mls/hr Multivitamins (Hexavitamin) 1 tab PO DAILY [facility] Last Admin: 11/05/17 10:50 Dose: 1 tab Ondansetron HCl (Zofran Inj) 4 mg IVP ONCE PRN PRN Reason: Nausea/Vomiting Oxycodone/Acetaminophen (Percocet 5/325 Mg Tab) 1 tab PO Q6H PRN PRN Reason: Pain, severe (8-10) Stop: 11/05/17 13:23 Last Admin: 11/04/17 23:56 Dose: 1 tab - Labs Labs: 11/05/17 06:47 11/05/17 06:47 PT 13.8 SECONDS (9.7-12.2) H 10/31/17 13:59 INR 1.2 10/31/17 13:59 APTT 39 SECONDS (21-34) H 10/31/17 13:59 - Extremities Exam Additional comments: Right hip: appearance of right hip improving. No new blisters or wounds. Area of inflammation a little improved today. +ROM ankle/toes, sensation itnact, ++DP /PT pulses calves soft NT ng homans telfa/gauze/tape applied Assessment and Plan (1) Status post total hip replacement, right Assessment & Plan: appears hypersensitivity reaction to betadine continue dry dressings no active drainage from wound, some serosang drainage from blister sites thigh swelling improving cont daily wound care, clean with saline and apply dry non stick dressings cont VTE proph PT/OT ortho stable for d/c to rehab f/u Dr. Metcalf within one week antibiotics as per ID for min 6 week course d/w Dr. Metcalf, agrees with above Status: Acute
--- NOTE | 2017-11-05 14:27 | CP.PCM.PN ---
Subjective - Date & Time of Evaluation Date of Evaluation: 11/05/17 Time of Evaluation: 11:00 - Subjective Subjective: Patient seen today, zurdo s any chest pain, sob, abdominal pain, R LE pain improved with pain medication oob with PT and walking with walker , tolerated well hgb -stable - 9.8<10.6<11.3 Objective - Vital Signs/Intake and Output Vital Signs (last 24 hours): Temp Pulse Resp BP Pulse Ox 98.1 F 60 20 104/56 L 98 11/05/17 08:48 11/05/17 08:48 11/05/17 08:48 11/05/17 08:48 11/05/17 08:48 Intake and Output: 11/05/17 11/05/17 06:59 18:59 Intake Total 600 Output Total 1150 Balance -550 - Medications Medications: Current Medications Acetaminophen (Tylenol 325mg Tab) 650 mg PO Q4 PRN PRN Reason: Fever >100.4 F Carbidopa/Levodopa (Sinemet) 1 tab PO TID [facility] Last Admin: 11/05/17 13:42 Dose: 1 tab Docusate Sodium (Colace) 100 mg PO BID [facility] Last Admin: 11/05/17 10:49 Dose: Not Given Enoxaparin Sodium (Lovenox) 40 mg SC DAILY [facility] Last Admin: 11/05/17 10:50 Dose: 40 mg Ergocalciferol (Drisdol 50,000 Intl Units Cap) 1 cap PO Q7D [facility] Last Admin: 11/01/17 11:01 Dose: 1 cap Cefepime HCl 2 gm/ Sodium (Chloride) 100 mls @ 200 mls/hr IV Q12H [facility] PRN Reason: Protocol Last Admin: 11/05/17 13:42 Dose: 200 mls/hr Lactobacillus Acidophilus (Bacid Acidophilus) 1 cap PO STAT [facility] Stop: 11/05/17 14:27 Multivitamins (Hexavitamin) 1 tab PO DAILY [facility] Last Admin: 11/05/17 10:50 Dose: 1 tab Ondansetron HCl (Zofran Inj) 4 mg IVP ONCE PRN PRN Reason: Nausea/Vomiting - Labs Labs: 11/05/17 06:47 11/05/17 06:47 PT 13.8 SECONDS (9.7-12.2) H 10/31/17 13:59 INR 1.2 10/31/17 13:59 APTT 39 SECONDS (21-34) H 10/31/17 13:59 Assessment and Plan - Assessment and Plan (Free Text) Assessment: A/P 72 yr old male with pmhx of parkinsons disease s/p R JAMES admitted from rehab with Hip pain, Anemia, Fever, POD#8 s/p I&D and poly change no active drainage from wound, seen by ortho today , recommends to continue daily wound care, clean with saline and apply dry non stick dressings cont.VTE proph ,PT/OT and stable from orthopedics stand point to discharge to to rehab , f/u Dr. Metcalf within one week D/w Dr. Rodriguez, stable for discharge to [facility] today and Dr. Rodriguez will follow the pateint at [facility] will repeat cbc on saturday and q 3 days
[2017-11-05] MEDS ORDERED: Lactobacillus Acidophilus 500 MU Cap PO ONE (14:30)
--- NOTE | 2017-11-05 16:34 | CP.PCM.PN ---
Subjective - Date & Time of Evaluation Date of Evaluation: 11/05/17 Time of Evaluation: 18:00 - Subjective Subjective: Pt seen and examined at bedside Objective - Vital Signs/Intake and Output Vital Signs (last 24 hours): Temp Pulse Resp BP Pulse Ox 98.1 F 60 20 104/56 L 98 11/05/17 08:48 11/05/17 08:48 11/05/17 08:48 11/05/17 08:48 11/05/17 08:48 Intake and Output: 11/05/17 11/05/17 06:59 18:59 Intake Total 600 300 Output Total 1150 1000 Balance -550 -700 - Medications Medications: Current Medications Acetaminophen (Tylenol 325mg Tab) 650 mg PO Q4 PRN PRN Reason: Fever >100.4 F Carbidopa/Levodopa (Sinemet) 1 tab PO TID [facility] Last Admin: 11/05/17 13:42 Dose: 1 tab Docusate Sodium (Colace) 100 mg PO BID [facility] Last Admin: 11/05/17 10:49 Dose: Not Given Enoxaparin Sodium (Lovenox) 40 mg SC DAILY [facility] Last Admin: 11/05/17 10:50 Dose: 40 mg Ergocalciferol (Drisdol 50,000 Intl Units Cap) 1 cap PO Q7D [facility] Last Admin: 11/01/17 11:01 Dose: 1 cap Cefepime HCl 2 gm/ Sodium (Chloride) 100 mls @ 200 mls/hr IV Q12H [facility] PRN Reason: Protocol Last Admin: 11/05/17 13:42 Dose: 200 mls/hr Multivitamins (Hexavitamin) 1 tab PO DAILY [facility] Last Admin: 11/05/17 10:50 Dose: 1 tab Ondansetron HCl (Zofran Inj) 4 mg IVP ONCE PRN PRN Reason: Nausea/Vomiting - Labs Labs: 11/05/17 06:47 11/05/17 06:47 PT 13.8 SECONDS (9.7-12.2) H 10/31/17 13:59 INR 1.2 10/31/17 13:59 APTT 39 SECONDS (21-34) H 10/31/17 13:59 - Extremities Exam Additional comments: Right hip: appearance of right hip improving. No new blisters or wounds. Area of inflammation a little improved today. +ROM ankle/toes, sensation itnact, ++DP /PT pulses calves soft NT ng homans telfa/gauze/tape applied Assessment and Plan (1) Parkinson disease Status: Acute (2) Anemia Status: Acute (3) Displaced fracture of right femoral neck Assessment & Plan: Additional comments: Assessment and Plan (1) Status post total hip replacement, right Assessment & Plan: appears hypersensitivity reaction to betadine continue dry dressings no active drainage from wound, some serosang drainage from blister sites thigh swelling improving cont daily wound care, clean with saline and apply dry non stick dressings cont VTE proph PT/OT ortho stable for d/c to rehab f/u Dr. Metcalf within one week antibiotics as per ID for min 6 week course d/w Dr. Metcalf, agrees with above Status: Acute
[2017-11-05 17:07] VITALS: BP 98/58; PULSE 79; RESP 18; O2SAT 95
== END 2017-11-05 16:47 | DRG 466 ==
LOC: C.ER 18:51 → C.9E 21:17 → C.6T 23:25
PROVIDERS: ADMIT Internal Medicine; ATTEND Internal Medicine
PROC: 0SP90JZ Removal of Synthetic Substitute from Right Hip Joint, Open Approach (ICD-10-PCS; 2017-10-28)
PROC: 0SR903A Replacement of Right Hip Joint with Ceramic Synthetic Substitute, Uncemented, Open Approach (ICD-10-PCS; principal; 2017-10-28 04:00)
DX: T84.011A Broken internal left hip prosthesis, initial encounter (principal); J18.9 Pneumonia, unspecified organism; N43.3 Hydrocele, unspecified; K40.90 Unilateral inguinal hernia, without obstruction or gangrene, not specified as recurrent; N19 Unspecified kidney failure; G20 Parkinson's disease; B35.1 Tinea unguium; D64.9 Anemia, unspecified; N50.89 Other specified disorders of the male genital organs; Z87.891 Personal history of nicotine dependence